=== PATIENT | male | born 1940 | race Caucasian/White ===

== ENCOUNTER → 2023-08-21 08:33 | Outpatient (REF) | payer MEDICARE, BC, SELFPAY ==
[2023-08-21 11:05] LABS: Microalbumin, Random Urine 14.7 mg/dl (0.6-1.7); Microalbumin/creatinine Ratio 113.6 mg/g
[2023-08-21 11:09] LABS: ALT (SGPT) 43 U/L (0-50); AST (SGOT) 50 U/L (17-59); Albumin 4.4 g/dl (3.5-5.0); Alkaline Phosphatase 89 U/L (38-126); Blood Urea Nitrogen 25 mg/dl (9-20); Carbon Dioxide 26 mmol/L (22-30); Chloride 104 mmol/L (98-107); Glucose 119 mg/dl (70-99); HDL Cholesterol 36 mg/dl; LDL Cholesterol, Calculated 71 mg/dl; Potassium 4.2 mmol/L (3.5-5.1); Sodium 141 mmol/L (135-145); Total Bilirubin 0.8 mg/dl (0.2-1.3); Total Cholesterol 178 mg/dl (50-199); Total Protein 7.5 g/dl (6.3-8.2); Triglyceride 358 mg/dl (10-149); Very Low Density Lipoprotein 71 mg/dl (0-30); eGFR > 60.00
== END ==
LOC: REG 08:33
PROVIDERS: ATTENDING PHYSICIAN Internal Medicine Endocrinology, Diabetes & Metabolism; FAMILY PHYSICIAN Family Medicine
DX: E11.40 Type 2 diabetes mellitus with diabetic neuropathy, unspecified (principal)
CPT/HCPCS: 36415; 80053; 80061; 82043; 82570; 83036

== ENCOUNTER 2023-12-24 10:25 | Inpatient (IN) | payer MEDICARE, BC, SELFPAY ==
[2023-12-24] VITALS (13 sets, daily range): BP systolic 94–157; BP diastolic 38–88; BMI 31.2
--- NOTE | 2023-12-24 07:36 | ED.GENMED ---
Addendum entered and electronically signed by Tony Stallworth DO 12/24/23 08:33:
Update LFTs noted, will check a blood culture right upper quadrant ultrasound
Original Note:
History of Present Illness
<Suri Jack MD, Resident - Last Filed: 12/24/23 07:59>
General
Chief Complaint: Musculo-Skeletal Complaint
Source: patient and spouse
Time Seen by Provider: 12/24/23 07:01
History of Present Illness
History of Present Illness:
83-year-old male, Mr. Reginaldo Vasques with past medical history of COPD, hypertension, hyperlipidemia, DM 2, coronary artery disease s/p stents, aortic valve stenosis s/p TAVR in 2021 was brought to the ER by the EMS after he slid down from his bed
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 Patient reports that he was feeling weak and fatigued from the past 2 days, no history of dizziness/lightheadedness prior to the fall and he did not hit his head. Patient reports having
sharp pain, 10/10 in intensity, in the lower back region which radiates up to the right hip, associated with weakness in the right lower extremity. Patient has a history of tingling and numbness in the bilateral lower extremities from diabetic
neuropathy, no bladder/bowel incontinence, after the fall. Patient's was at the bedside and reports that he has been running fevers from the past 2 days, maximum recorded temperature was 102.82 days ago. She also reports his appetite was
decreased. No history of recent travel, exposure to sick contacts, chest pain, SOB, abdominal pain, dysuria, diarrhea.
Past History
<Suri Jack MD, Resident - Last Filed: 12/24/23 07:59>
Past History
ED Past Medical History: COPD, NIDDM and Other (Esophageal stricture, AL, aortic stenosis, peripheral neuropathy)
Social History
Tobacco: Former smoker
Alcohol: None
Drug: None
Personal:
Living: with family
Family History
Family History: Negative Diabetes or Hypertension
Review of Systems
<Suri Jack MD, Resident - Last Filed: 12/24/23 07:59>
Review of Systems
All Other Systems: ROS reviewed and negative except as documented in HPI and ROS
Phy Exam
<Suri Jack MD, Resident - Last Filed: 12/24/23 07:59>
Physical Exam
Physical Exam:
GEN: Patient is tachypneic, profusely sweating.
Eyes: PERRLA, EOMs intact, no scleral icterus
HENT: NCAT, oral mucosa moist, no JVD, no cervical adenopathy.
Lungs: bilateral basal wheezes
Cardiac: RRR, S1, S2 +, radial pulses 2+ bilat
Abdomen: S, NT, ND, NABS, no masses or hepatosplenomegaly
Neuro: AO x 3, no focal neurological deficits.
MSK: Tenderness to palpation in the lower back, SLR+ on right side, sensations intact bilaterally, decreased strength of the right lower extremity.
Skin: Normal color, no pallor or jaundice.
Psych: Calm, cooperative, proper hygiene
Course
<Suri Jack MD, Resident - Last Filed: 12/24/23 07:59>
Orders/Labs/Results
Orders:
Orders
12/24/23 07:06
CR Hip - RT w/wo Pel 2-3 Vw* Urgent
Comment:
Reason For Exam: fall, pain to r hip/knee
Include a pelvis x-ray?: Yes
12/24/23 07:20
COVID-19 Antigen Urgent
Source: Nasal Swab
12/24/23 07:26
CBC/With Diff [Complete Blood Count/With Diff] Urgent
CMP [Comprehensive Metabolic Panel] Urgent
12/24/23 07:32
CXR2 [CR Chest - 2 Views ] Urgent
Comment:
Reason For Exam: sob, fever
12/24/23 07:35
0.9% Sodium Chloride 1000 ml [Nss] 1,000 ml IV BOLUS
Acetaminophen [Tylenol] 650 mg PO NOW STA
12/24/23 08:16
Lactic Acid Urgent
Abnormal Lab Results
12/24/23
07:26
RBC 4.44 L 10^6/uL
(4.70-6.10)
Hct 38.9 L %
(39.0-52.0)
MCH 31.3 H pg
(27.0-31.0)
Sodium 132 L mmol/L
(135-145)
BUN 46 H mg/dl
(9-20)
Creatinine 1.5 H mg/dL
(0.7-1.3)
Glucose 213 H mg/dl
(70-99)
Total Bilirubin 2.3 H mg/dl
(0.2-1.3)
AST 203 H U/L
(17-59)
ALT 72 H U/L
(0-50)
12/24/23 07:26
12/24/23 07:26
Vital Signs
Initial and Last Documented VS:
Initial Vital Signs
Temp Pulse Resp BP Pulse Ox
100.4 F H 105 24 157/65 92
12/24/23 06:56 12/24/23 06:56 12/24/23 06:56 12/24/23 06:56 12/24/23 06:56
Last Documented Vital Signs
Temp Pulse Resp BP Pulse Ox
100.4 F H 105 24 157/65 92
12/24/23 06:56 12/24/23 06:56 12/24/23 06:56 12/24/23 06:56 12/24/23 06:56
<Tony Stallworth, DO - Last Filed: 12/24/23 08:26>
Orders/Labs/Results
Orders:
Orders
12/24/23 07:06
CR Hip - RT w/wo Pel 2-3 Vw* Urgent
Comment:
Reason For Exam: fall, pain to r hip/knee
Include a pelvis x-ray?: Yes
12/24/23 07:20
COVID-19 Antigen Urgent
Source: Nasal Swab
12/24/23 07:26
CBC/With Diff [Complete Blood Count/With Diff] Urgent
CMP [Comprehensive Metabolic Panel] Urgent
12/24/23 07:32
CXR2 [CR Chest - 2 Views ] Urgent
Comment:
Reason For Exam: sob, fever
12/24/23 07:35
0.9% Sodium Chloride 1000 ml [Nss] 1,000 ml IV BOLUS
Acetaminophen [Tylenol] 650 mg PO NOW STA
12/24/23 08:16
Lactic Acid Urgent
Abnormal Lab Results
12/24/23
07:26
RBC 4.44 L 10^6/uL
(4.70-6.10)
Hct 38.9 L %
(39.0-52.0)
MCH 31.3 H pg
(27.0-31.0)
Sodium 132 L mmol/L
(135-145)
BUN 46 H mg/dl
(9-20)
Creatinine 1.5 H mg/dL
(0.7-1.3)
Glucose 213 H mg/dl
(70-99)
Total Bilirubin 2.3 H mg/dl
(0.2-1.3)
AST 203 H U/L
(17-59)
ALT 72 H U/L
(0-50)
12/24/23 07:26
12/24/23 07:26
Vital Signs
Initial and Last Documented VS:
Initial Vital Signs
Temp Pulse Resp BP Pulse Ox
100.4 F H 105 24 157/65 92
12/24/23 06:56 12/24/23 06:56 12/24/23 06:56 12/24/23 06:56 12/24/23 06:56
Last Documented Vital Signs
Temp Pulse Resp BP Pulse Ox
100.4 F H 105 24 157/65 92
12/24/23 06:56 12/24/23 06:56 12/24/23 06:56 12/24/23 06:56 12/24/23 06:56
<Suri Jack MD, Resident - Last Filed: 12/24/23 07:59>
MDM/Problems Addressed
Differential Diagnosis Includes:
COVID, COPD exacerbation, pneumonia
Lumbar muscle strain, disc prolapse, hip fracture on the right side.
MDM/Problems Addressed:
CBC, CMP, lactate
Chest x-ray
X-ray pelvis/hip
Patient is febrile, temperature at 100.4
Patient started on IV fluids
Pain control/fever with Tylenol
<Tony Stallworth DO - Last Filed: 12/24/23 08:26>
MDM/Problems Addressed
Chronic conditions affecting care: COPD
Acute Exacerbation and/or Progression of Chronic Illness: COPD
<Tony Stallworth DO - Last Filed: 12/24/23 08:26>
*Critical Care Note
Total Time (30-74mins, 75-104mins- exclusive of procedures): 15
ED Attending Note
<Suri Jack MD, Resident - Last Filed: 12/24/23 07:59>
-
Portions of this chart may have been created with voice recognition software.� Occasional wrong word or��sound alike� substitutions may have occurred due to the inherent limitations of voice recognition software.
<Tony Stallworth, DO - Last Filed: 12/24/23 08:26>
ED Attending Note
Patient seen and examined by attending physician: Yes
I performed a history and physical exam of patient and discussed management with resident, I reviewed resident's note and agree with documented findings and plan of care.: Yes
ED Attending Note:
Seen with resident examined independently 83-year-old male COPD febrile illness for a few days slid out of bed has right sided back and hip pain looks weak you are coughing a bit, labs are noted acute kidney injury, could all be a viral syndrome
nonetheless I believe he would benefit from admission for IV fluids several supportive care antipyretics chest x-ray noted, report pending urinalysis is pending
Discharge Plan
Departure
Patient Disposition: Admit
Date of Disposition: 12/24/23
Time of Disposition: 08:25
Admit to: Med/Surg
Presentation/result/management discussed w/ accepting MD/DO: Hospitalist
Patient with high blood pressure during this ER visit?: No
Condition: Fair
Covid-19: Negative COVID-19
Discharge Problem:
MODESTA (acute kidney injury), Fever
Prescriptions:
No Action
albuterol sulfate [Ventolin HFA] 90 MCG/PUFF HFA aerosol inhaler
1 puff inhalation TIDPRN PRN (Reason: wheezing, dyspnea)
Patient Comments:
unknown of last used
fluticasone furoate-vilanterol [Breo Ellipta] 1 EACH blister with device
1 mcg inhalation DAILY
pantoprazole 40 MG tablet,delayed release (DR/EC)
40 mg PO DAILY Qty: 90 3RF
isosorbide mononitrate 30 MG tablet extended release 24 hr
60 mg PO DAILY
ipratropium-albuterol 0.5 mg-3 mg(2.5 mg base)/3 mL Solution For Nebulization
3 ml INHALATION DAILY
losartan 25 mg Tablet
25 mg PO DAILY
brimonidine 0.2 % Drops
1 drp OPHTHALMIC (EYE) BID
rosuvastatin 5 mg Tablet
5 mg PO MOWEFR
budesonide 1 mg/2 mL Suspension For Nebulization
1 mg INHALATION DAILY
ranibizumab 0.5 mg/0.05 mL Solution
0.3 mg INTRAVITREAL Q6W
Patient Comments:
eye injection every 6-8 weeks
Rx Instructions:
R eye
multivitamin Tablet
1 tab PO DAILY
ascorbic acid (vitamin C) [Vitamin C] 1,000 mg Tablet
1 g PO DAILY
echinacea 380 mg Capsule
380 mg PO DAILY
cyanocobalamin (vitamin B-12) [Vitamin B-12] 1,000 mcg Tablet
1,000 mcg PO DAILY
nitroglycerin 0.4 mg Tablet, Sublingual
0.4 mg SUBLINGUAL Q5M PRN (Reason: chest pain)
Patient Comments:
pt has rx filled, but has never used
lysine [L-Lysine] 500 mg Tablet
500 mg PO DAILY
magnesium 200 mg Tablet
200 mg PO QPM
5-hydroxytryptophan (5-HTP) [5-HTP] 100 mg Capsule
100 mg PO QPM
cholecalciferol (vitamin D3) [Vitamin D3] 50 mcg (2,000 unit) Tablet
50 mcg PO DAILY
aflibercept 2 mg/0.05 mL Syringe
2 mg INTRAVITREAL Q6W
Patient Comments:
Left eye injection every 6-8 weeks
Rx Instructions:
04/06/2022
pyridoxine (vitamin B6) [Vitamin B-6] 100 mg Tablet
50 mg PO QPM
melatonin 10 mg Tablet
10 mg PO QPM
theanine 200 mg Capsule
200 mg PO QPM
IMAN Soothe 100-100-225 mg Capsule
500 cap PO QPM
ezetimibe 10 mg Tablet
10 mg PO DAILY
furosemide [Lasix] 20 mg tablet
20 mg PO MOWEFR Qty: 90 5RF
zinc acetate 50 mg (zinc) Capsule
50 mg PO DAILY
aspirin 81 mg Capsule
81 mg PO DAILY
potassium citrate 99 mg Capsule
99 mg PO DAILY
glipizide 5 mg Tablet Extended Release 24hr
5 mg PO DAILY
Trulicity 0.75 MG/0.5 ML pen injector
0.75 mg SQ FR
acetaminophen 325 mg Tablet
650 mg PO Q4HPRN PRN (Reason: HARP, mild pain, or fever >101F) Qty: 0 3RF
Referrals:
Marquis West MD [Family Provider] -
Interventions
Interventions:
*Risk Screen - Suicide Last Done: 12/24/23 06:56
*General Assessment Last Done: 12/24/23 06:56
*Neglect/Abuse Screening Last Done: 12/24/23 06:56
Discharge Date and Time
Print Language: HAITIAN
[2023-12-24] MEDS: TYLENOL 650 MG PO ×2 (07:39→17:18)
[2023-12-24 07:48] LABS: COVID-19 Antigen Negative (Negative)
[2023-12-24 07:49] LABS: Hematocrit 38.9 % (39.0-52.0); Hemoglobin 13.9 g/dL (13.0-18.0); Mean Corp Hgb Conc. 35.7 g/dL (33.0-37.0); Mean Corpuscular Hgb 31.3 pg (27.0-31.0); Mean Corpuscular Volume 87.6 fL (80.0-94.0); Red Blood Cell Count 4.44 10^6/uL (4.70-6.10); Red Cell Dist. Width 13.7 % (11.5-14.5)
[2023-12-24 07:52] LABS: ALT (SGPT) 72 U/L (0-50); AST (SGOT) 203 U/L (17-59); Albumin 4.1 g/dl (3.5-5.0); Alkaline Phosphatase 74 U/L (38-126); Blood Urea Nitrogen 46 mg/dl (9-20); Carbon Dioxide 22 mmol/L (22-30); Chloride 101 mmol/L (98-107); Estimated Creatinine Clearance 46 ml/min; Glucose 213 mg/dl (70-99); Potassium 4.3 mmol/L (3.5-5.1); Sodium 132 mmol/L (135-145); Total Bilirubin 2.3 mg/dl (0.2-1.3); Total Protein 6.8 g/dl (6.3-8.2); eGFR 46.48
[2023-12-24 08:02] LABS: Calcium 9.1 mg/dl (8.4-10.2)
[2023-12-24] MEDS: NSS 1000 IV ×2 (08:14→17:19)
[2023-12-24 08:27] LABS: % Basophils 0.3 % (0-2); % Lymphocytes 6.4 % (20.5-51.1); % Monocytes 10.6 % (1.7-9.3); % Neutrophils 81.7 % (42.2-75.2); Absolute Immature Granulocytes 0.1 10^3/uL (0-0.05); Absolute Lymphocytes 0.4 10^3/uL (1.2-3.4); Absolute Monocytes 0.6 10^3/uL (0.1-0.6); Absolute Neutrophils 4.9 10^3/uL (1.4-6.5); Mean Platelet Volume 12.7 fL (7.4-10.4); Nucleated Red Blood Cells % 0 % (-); Platelet Count 42 10^3/uL (130-400)
--- NOTE | 2023-12-24 09:41 | HPS.HSE ---
Family Physician
-
Family Physician: Marquis West
Chief Complaint
-
Weakness, fever, chills
History of Present Illness
83-year-old male here complaining of generalized weakness, fever, chills for the past 11 days. Denies any sick contacts. Denies any tick exposures. Denies significant cough. Denies rash. Denies any urinary symptoms.
Apparently fell out of bed this morning and landed on his butt. Since the fall has had pain in the right lateral hip and pain with right hip flexion. Denies loss of consciousness.
Has a history of nephrolithiasis and was treated with a medication by his primary care 2 weeks ago to help him pass a kidney stone. He does not remember the name of the medication. He was not on antibiotics. He did not see a stone pass but his
kidney stone pain did resolve.
Patient and are poor historians.
Medical History
Past Medical History
Past Medical History: Reports Other
Additional Past Medical History:
COPD
Essential hypertension
Hyperlipidemia
DM2
CAD
Aortic stenosis
Peripheral neuropathy
Esophageal stricture
Past Surgical History: Reports Other
Additional Past Surgical History:
TAVR�2022
Bilateral total knee arthroplasty
Social History
Tobacco: Former Smoker
Alcohol: Occasional
Drug: None
Personal:
Living: With Family
Family History
Family History: Not pertinent
Allergies / Home Medications
Allergies reflects when Allergies were last updated in [employer].
Home Medications with original date entered in [employer]
Allergy/Medication List:
Allergies
Allergy/AdvReac Type Severity Reaction Status Date / Time
atorvastatin Allergy LEG CRAMPS Verified 12/24/23 06:55
lisinopril Allergy severe Verified 12/24/23 06:55
cough
prednisone Allergy Swelling Verified 12/24/23 06:55
rosiglitazone [From Avandia] Allergy Edema Verified 08/06/24 06:55
Home Medications
ascorbic acid (vitamin C) 500 mg tablet (Vitamin C) 500 mg PO DAILY 12/24/23
cyanocobalamin (vitamin B-12) 1,000 mcg tablet 1,000 mcg PO DAILY 12/24/23
dulaglutide 0.75 mg/0.5 mL subcutaneous pen injector (Trulicity) 0.75 mg SC FR 12/24/23
ezetimibe 10 mg tablet (Zetia) 10 mg PO DAILY 12/24/23
furosemide 20 mg tablet (Lasix) 20 mg PO MOWEFR 12/24/23
garlic 400 mg tablet,delayed release 400 mg PO DAILY 12/24/23
glipizide 5 mg tablet 5 mg PO DAILY 12/24/23
ibuprofen 125 mg-acetaminophen 250 mg tablet (Advil Dual Action) 1 tab PO Q8HPRN PRN mild pain/fever 12/24/23
isosorbide mononitrate 60 mg tablet,extended release 24 hr 60 mg PO DAILY 12/24/23
losartan 25 mg tablet 25 mg PO DAILY 12/24/23
magnesium oxide 200 mg PO DAILY 12/24/23
pantoprazole 40 mg tablet,delayed release (Protonix) 40 mg PO DAILY 12/24/23
potassium 99 mg tablet 99 mg PO DAILY 12/24/23
pyridoxine (vitamin B6) 50 mg tablet 50 mg PO DAILY 12/24/23
rosuvastatin 5 mg tablet 5 mg PO MOWEFR 12/24/23
therapeutic multivitamin 1 tab PO DAILY 12/24/23
Review of Systems
-
History Source: Patient and Family
A 12 point ROS was completed and negative except as noted: Yes
Constitutional: Reports Fever, Fatigue and Chills
Physical Exam
Vital Signs
Vital Signs
Temp Pulse Resp BP Pulse Ox
100.4 F H 89 27 123/38 94
12/24/23 06:56 12/24/23 08:30 12/24/23 08:30 12/24/23 08:17 12/24/23 08:30
Physical Exam
General: Well Developed, Well Nourished, No Apparent Distress and Comfortable
HEENT: NormoCephalic, Anicteric and Moist mucous membranes
Respiratory: Decreased Breath Sounds
Cardiac: S1/S2 and Regular Rhythm
Breast: Deferred by me
GI: Soft, Non Tender and Non Distended
Genito-urinary: Costovertebral angle tend (Mild right CVA tenderness)
Musculoskeletal: No Clubbing, No Cyanosis and No Edema
Skin: Warm and Dry
Neuro: AO x 3
Hematologic/Lymphatic: No Lymphadenopathy
Psych: Calm
Laboratory Results
-
12/24/23 07:26
12/24/23 07:26
Laboratory Results
Lactic Acid 2.0 mmol/L (0.7-2.0) 12/24/23 08:16
Total Bilirubin 2.3 mg/dl (0.2-1.3) H 12/24/23 07:26
AST 203 U/L (17-59) H 12/24/23 07:26
ALT 72 U/L (0-50) H 12/24/23 07:26
Alkaline Phosphatase 74 U/L (38-126) 12/24/23 07:26
Impression/Plan
-
MODESTA -suspect due to volume depletion. Continue IV fluids. Check urinalysis. Check bladder scan. Hold furosemide. Hold losartan. Stop NSAIDs.
Admit to MedSurg.
Febrile illness -white blood cell count normal but bandemia noted. Check blood and urine cultures. Check CT abdomen and pelvis, rule out nephrolithiasis. Check urinalysis.
DM2 with hyperglycemia -hold oral agents. Use low resistance insulin scale. Check hemoglobin A1c.
Hyponatremia -suspect due to hyperglycemia.
Elevated transaminases -check GGT, direct bilirubin.
COPD without exacerbation
Essential hypertension -stable.
Hyperlipidemia -continue Crestor.
CAD -stable.
aortic stenosis -s/p TAVR.
Diabetic peripheral neuropathy
Esophageal stricture
Chronic thrombocytopenia -unclear etiology. Monitor for now.
Obesity due to excess calories
DNR
Updated at the bedside.
[2023-12-24 10:03] LABS: Direct Bilirubin 0.8 mg/dl (0.0-0.4)
[2023-12-24 14:17] LABS: GGTP 109 U/L (15-73)
[2023-12-24] MEDS: DUONEB 3 ML INH (14:19)
[2023-12-24 14:25] LABS: Creatine Phosphokinase 4102 U/L (55-170)
--- NOTE | 2023-12-24 14:28 | EDRN ---
Pt tachycardic in the 120s, sob/wheezing, hypoxic on room air at 88%. PRN duoneb administered, discused with Dr. zaldivar who said he will upgrade to IMU.
[2023-12-24] MEDS: NOVOLOG FLEXPEN-LOW RESISTANCE SC (17:17)
[2023-12-24 17:25] LABS: Glucose - Point of Care 190 mg/dl (70-99)
[2023-12-24] MEDS: NOVOLOG FLEXPEN-LOW RESISTANCE 1 UNITS SC (17:46)
--- NOTE | 2023-12-24 17:55 | PTCARENOTE ---
Pt received from ED. AAOx3. Pt reports having double vision at times. NSR/ST on contract technician. HRs 90s-100s. SaO2 96% on 3L nasal cannula. Lungs diminished throughout. Pt with oral termp of 101.8, PRN tylenol given for fever. IVF initiated through
R FA PIV. Pt resting in bed, call morse in reach. Assessment documented.
[2023-12-24] MEDS: HEPARIN 5000 UNITS SC (19:37)
[2023-12-24 20:46] LABS: Urine Albumin 1+ (Neg - Trace); Urine Bilirubin Negative (Negative); Urine Character Clear (Clear); Urine Color Yellow; Urine Glucose Negative (Negative); Urine Ketone Trace (Negative); Urine Leukocyte Negative (Negative); Urine Nitrite Negative (Negative); Urine Occult Blood 1+ (Negative); Urine Specific Gravity 1.025 (<1.030); Urine Urobilinogen Negative (Neg - 1+)
[2023-12-24 20:54] LABS: Urine Bacteria Many (Negative); Urine Red Blood Cell 0-2 /HPF (0-2); Urine Squamous Cell 0-2 /LPF (Few); Urine White Cell 0-2 /HPF (0-5)
[2023-12-24 20:55] LABS: Urine Mucus Few
[2023-12-24 21:55] LABS: Glucose - Point of Care 214 mg/dl (70-99)
[2023-12-25] VITALS (15 sets, daily range): BP systolic 100–158; BP diastolic 45–103; PULSE 96; O2SAT 96; BMI 31.6
[2023-12-25] MEDS: NSS 1000 IV ×2 (03:55→09:12)
[2023-12-25] MEDS: TYLENOL 650 MG PO (03:58)
--- NOTE | 2023-12-25 04:48 | PTCARENOTE ---
Patient able to sleep overnight. UA collected and sent. Pt has severe neuropathy, able to use urinal but spills. condom cath placed. all linens changed, bed bath given. pt on 3L NC; DAWN present. t-max 100.5; tylenol provided. Tele showing NSR with
PVCs. bed alarm set for safety. call morse within reach
[2023-12-25 04:57] LABS: Hematocrit 35.7 % (39.0-52.0); Mean Corp Hgb Conc. 36.4 g/dL (33.0-37.0); Mean Corpuscular Hgb 31.1 pg (27.0-31.0); Mean Corpuscular Volume 85.4 fL (80.0-94.0); Platelet Count 46 10^3/uL (130-400); Red Blood Cell Count 4.18 10^6/uL (4.70-6.10); Red Cell Dist. Width 13.8 % (11.5-14.5)
[2023-12-25 05:13] LABS: Absolute Neutrophils -Man Diff 2.9 10^3/uL (1.4-6.5); Band Neutrophils 12 % (0-3); Eosinophils 2 % (0-6); Lymphocytes 15 % (20-51); Monocytes 9 % (2-9); Segmented Neutrophils 62 % (42-75)
[2023-12-25 05:14] LABS: Normal RBC Morphology Yes; Platelets Checked Yes; Total Cells Counted 100
[2023-12-25 05:24] LABS: ALT (SGPT) 70 U/L (0-50); AST (SGOT) 149 U/L (17-59); Albumin 3.4 g/dl (3.5-5.0); Alkaline Phosphatase 76 U/L (38-126); Blood Urea Nitrogen 44 mg/dl (9-20); Calcium 8.7 mg/dl (8.4-10.2); Carbon Dioxide 19 mmol/L (22-30); Chloride 106 mmol/L (98-107); Creatine Phosphokinase 1369 U/L (55-170); Estimated Creatinine Clearance 57 ml/min; Glucose 197 mg/dl (70-99); Potassium 4.6 mmol/L (3.5-5.1); Sodium 133 mmol/L (135-145); Total Bilirubin 2.2 mg/dl (0.2-1.3); Total Protein 6.2 g/dl (6.3-8.2); eGFR > 60.00
--- NOTE | 2023-12-25 08:12 | W.PN.HOSP.TC ---
Addendum entered and electronically signed by Say Gandara DO 12/25/23 12:36:
pancytopenia
Original Note:
Today's Communication/Plan
-
IV fluids
Blood parasite smear
PT/OT
Assessment / Plan
Assessment / Plan
Gen-AAOx3, NAD
HEENT-NC, AT, anicteric, clear oral mm
Neck-supple
CV-reg, no M, +S1/S2
Lungs-clear B/L
Abd-soft, NT, ND
Ext-no edema
Musculoskeletal-no cyanosis, clubbing
Skin-warm and dry, dry scabbed lesions on plantar aspect of both feet
Neuro-grossly non-focal
Psych-calm, cooperative
MODESTA -suspect due to volume depletion. Creatinine coming down. Continue IV fluids. Hold furosemide. Hold losartan. Stop NSAIDs.
Sepsis -present on admission. Workup negative so far. Not on antibiotics currently. Cultures pending. Check blood smear for parasites.
DM2 with hyperglycemia -hold oral agents. Use low resistance insulin scale. Check hemoglobin A1c. Glucose 197 this morning.
Hyponatremia -suspect due to hyperglycemia.
Acute nontraumatic rhabdomyolysis -CPK trending down. Continue IV fluids.
Elevated transaminases -GGT elevated. Transaminases starting to come down. Abdominal ultrasound suggestive of cirrhosis and probable portal hypertension, no focal hepatic lesion. Will need outpatient follow-up.
COPD without exacerbation
Essential hypertension -stable.
Hyperlipidemia -continue Crestor.
CAD -stable.
aortic stenosis -s/p TAVR.
Diabetic peripheral neuropathy
Esophageal stricture
Chronic thrombocytopenia -unclear etiology. Monitor for now.
Obesity due to excess calories
DNR
PT/OT
Anticipated Discharge: > 48 hours
Subjective/Interval History
-
Date of Service: December 25, 2023
Patient seen and examined. No complaints.
Objective Data
-
Labs:
Laboratory Results
12/25/23
04:32
WBC 4.0 L
Hgb 13.0
Hct 35.7 L
Plt Count 46 L
Sodium 133 L
Potassium 4.6
Chloride 106
Carbon Dioxide 19 L
BUN 44 H
Creatinine 1.2
Glucose 197 H
Calcium 8.7
Total Bilirubin 2.2 H
AST 149 H
ALT 70 H
Alkaline Phosphatase 76
Vital Signs:
Vital Signs
Temp Pulse Resp BP Pulse Ox
100.5 F H 79 20 100/54 97
12/25/23 03:55 12/25/23 06:15 12/25/23 06:15 12/25/23 06:00 12/25/23 06:15
I&O
12/24/23 12/25/23 12/26/23
06:59 06:59 06:59
Intake Total 400 / 400
Output Total 425 / 425
Balance -25 / -25
Review of Systems
-
History Source: Patient
All other systems: Reviewed and negative
[2023-12-25 08:13] LABS: Glucose - Point of Care 180 mg/dl (70-99)
[2023-12-25 09:10] LABS: Glycohemoglobin (HgbA1c) 6.7 % (4.0-5.6)
[2023-12-25] MEDS: HEPARIN 5000 UNITS SC ×2 (09:10→19:49)
[2023-12-25] MEDS: NOVOLOG FLEXPEN-LOW RESISTANCE 1 UNITS SC (09:10)
[2023-12-25] MEDS: VITAMIN B-12 1000 MCG PO (09:11)
[2023-12-25] MEDS: VITAMIN B-6 50 MG PO (09:11)
[2023-12-25] MEDS: ZETIA 10 MG PO (09:11)
[2023-12-25] MEDS: MAGNESIUM OXIDE 250 MG PO (09:11)
[2023-12-25] MEDS: PROTONIX 40 MG PO (09:12)
[2023-12-25] MEDS: IMDUR (EXTENDED RELEASE) 60 MG PO (09:12)
[2023-12-25] MEDS: THERAGRAN 1 TABLET PO (09:12)
[2023-12-25] MEDS: VITAMIN C 500 MG PO (09:12)
--- NOTE | 2023-12-25 09:41 | PN.CDI ---
CDI
- -
CDI:
Physician Documentation Request
Admit Date: 12/24/23 10:25
Dear Doctor Nichol,
Clinical Indicators:
Patient admitted with sepsis & MODESTA.
12/24 PN, ' Chronic thrombocytopenia -unclear etiology. Monitor for now.'
WBC, RBC, Plts:
12/25/23
04:32
WBC 4.0 L
RBC 4.18 L
Plt Count 46 L
Based on the above, could you clarify in the progress notes, the appropriate diagnosis, if significant, that supports the above lab abnormalities and additional evaluation/monitoring:
Pancytopenia
Chronic thrombocytopenia only
Other, please specify
Use of terms such as suspected, likely, concern for, or probable (associated with a specific diagnosis that is being evaluated, monitored, or treated as if it exists) are acceptable and can be coded in the inpatient setting, when documented at the
time of discharge.
Thank you,
Karen Mays RN BSN
CDI Specialist
available via tiger text
Please use your independent medical judgment in providing your response.
[2023-12-25] MEDS: AMPICILLIN 108 MG IV ×4 (12:02→23:24)
[2023-12-25] MEDS: NOVOLOG FLEXPEN-LOW RESISTANCE 2 UNITS SC ×2 (12:07→16:49)
[2023-12-25 12:18] LABS: Glucose - Point of Care 219 mg/dl (70-99)
--- NOTE | 2023-12-25 12:55 | CON.ID ---
Consultation
-
Date/Time Consultation Requested: December 25, 2023 1152
Date/Time Consultation Performed: December 25, 2023 1300
Requesting Provider: Dr. Say Gandara
Performing Provider: Dr. Rachna Gaona
Reason for Consultation: Positive blood culture
Chief Complaint / Past History
Chief Complaint
Fever, chills
History of Present Illness
83-year-old male with diabetes mellitus, COPD, TAVR, CAD status post stent, chronic thrombocytopenia who presented to the hospital December 23 complaining of fever. He reports that symptoms started about a week and a half ago when he developed rigors
which were intermittent. Also had subjective fevers and sweats. He became weak and fell off his bed yesterday and came to the ER. Maximum temperature was 101.8. Admission blood culture 1 out of 1 set GPC in chains in aerobic and anaerobic
bottles. LFTs noted to be elevated. ABD US suggestive of cirrhosis/protal hypertension. CT a/p: unremarkable. CXR negative. Patient denies chest pain or cough. No headache or sore throat. Last dental work was last year, she now has upper and
lower dentures. No nausea or vomiting abdominal pain or diarrhea. No urine symptoms. No flank pain. No back pain. No new joint pains. No ill contacts. No travel history.
Past History
Additional Past Medical History:
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
s/p TAVR (2021)
CAD s/p stent
COPD
Chronic thrombocytopenia
Hypertension
Dyslipidemia
CHF
Nephrolithiasis
Andre's esophagus/stricture
Obstructive sleep apnea
Arthritis
C3-7 discectomy/laminectomy with screws
Jaw implant bilateral
B TKA
Allergy History:
atorvastatin Allergy (Verified 12/24/23 06:55)
LEG CRAMPS
lisinopril Allergy (Verified 12/24/23 06:55)
severe cough
prednisone Allergy (Verified 12/24/23 06:55)
Swelling
rosiglitazone [From Avandia] Allergy (Verified 12/24/23 06:55)
Edema
Medications Reviewed: Yes
Current Antibiotics:
Ampicillin 2g IV q4
Social History
Tobacco: Non-Smoker
Alcohol: Occasional
Drug: None
Personal:
Living: With Family
Family History
Family History: Not Pertinent
Review of Systems
Review of Systems
General: Fever, Chills and Change in Appetite
HEENT: Negative Sinus Problems, Headache or Pharyngitis
Cardiovascular: Negative Chest Pain or Edema
Respiratory: Negative Dyspnea or Cough
Gasteroenterology: Other (no diarrhea); Negative Nausea or Vomiting
Genital / Urological: Negative Dysuria or Flank Pain
Endocrine: Weakness and Fatigue
Musculoskeletal: Negative Arthralgias
Skin / Hair / Nails: Negative Rash
Neurological: Negative Headache or Dizziness
All systems: All other systems were reviewed and were negative
Vital Signs
Temp Pulse Resp BP Pulse Ox
99.0 F 79 20 100/54 92
12/25/23 10:52 12/25/23 06:15 12/25/23 06:15 12/25/23 06:00 12/25/23 09:19
Selected Entries
12/24/23
16:45
Temp max 101.8 F H
Physical Exam
Physical Exam
Constitutional: No Acute Distress
Head: Other (No frontal or maxillary sinus tenderness.)
Eyes: No Conjunctival Hemorrhage
Pharynx: Benign
Oral: Other (Dentures in place)
Cardiovascular: Regular Rate and S1/S2; Negative Murmur or Peripheral Edema
Pulmonary: Clear
Gastrointestinal: Soft, Non Tender, Non Distended and Normal Bowel Sounds
Genito-Urinary: Negative CVA Tenderness
Extremities: Negative Edema, Splinter Hemorrhage or Janeway Lesions
Musculoskeletal: Joint Effusion (Knees); Negative Joint Swelling (Knees) or Spinal Tenderness
Skin: Negative Rash
Neurological: AO x 3; Negative Meningeal Signs
Lab / Diagnostic Study Results
12/25/23 04:32
12/25/23 04:32
Abs Immat Gran (auto) 0.1 10^3/uL (0-0.05) H 12/24/23 07:26
Absolute Neuts (auto) 4.9 10^3/uL (1.4-6.5) 12/24/23 07:
Absolute Lymphs (auto) 0.4 10^3/uL (1.2-3.4) L 12/24/23 07:
Absolute Monos (auto) 0.6 10^3/uL (0.1-0.6) 12/24/23 07:
Absolute Basos (auto) 0.0 10^3/uL (0-0.2) 12/24/23 07:26
Total Counted 100 12/25/23 04:32
Immature Gran % 1.0 % (0-0.5) H 12/24/23 07:26
Neutrophils % 81.7 % (42.2-75.2) H 12/24/23 07:
Lymphocytes % 6.4 % (20.5-51.1) L 12/24/23 07:26
Monocytes % 10.6 % (1.7-9.3) H 12/24/23 07:
Eosinophils % 0.0 % (0-6) 12/24/23 07:26
Basophils % 0.3 % (0-2) 12/24/23 07:26
Abs Neuts (Manual) 2.9 10^3/uL (1.4-6.5) 12/25/23 04:32
Segmented Neutrophils 62 % (42-75) 12/25/23 04:32
Band Neutrophils 12 % (0-3) H 12/25/23 04:32
Lymphocytes (Manual) 15 % (20-51) L 12/25/23 04:32
Eosinophils (Manual) 2 % (0-6) 12/25/23 04:32
Lactic Acid 2.0 mmol/L (0.7-2.0) 12/24/23 08:16
Ur Squamous Epith Cells 0-2 /LPF (Few) 12/24/23 20:38
Microbiology Results
Micro:
12/24/23 18:46 Blood Culture - Preliminary
Blood/Venous Positive culture in progress
Gram Stain - Preliminary
12/24/23 20:38 Urine Culture - Pending
Urine
12/24/23 CT a/p: There are multiple calcifications in the pancreas suggesting chronic pancreatitis but no acute findings. There is a left renal calculus but no evidence of hydronephrosis or ureteral calculus. There is diverticulosis but no evidence of
diverticulitis
There is multilevel degenerative disc disease throughout the lumbar spine.
12/24/23 Abd US: Cirrhosis and probable portal hypertension with splenic diameter of 15.9 cm. No abnormal focal hepatic lesion is identified sonographically. No acute intra-abdominal process identified sonographically.
12/24/23 CXR: There is cardiomegaly but no evidence of decompensation.
Assessment / Plan
# GPC chain bacteremia - suspect streptococcal species vs enterococcus
# Sepsis Fever, bandemia, leukopenia
# Hx TAVR
# Elevated transaminases
- Repeat blood cultures daily until clear.
- Ordered TTE
- Add ceftriaxone 2g IV q24.
- Continue ampicillin for now.
- Follow temps/wbc
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
s/p TAVR (2021)
CAD s/p stent
COPD
Chronic thrombocytopenia
Hypertension
Dyslipidemia
CHF
Nephrolithiasis
Andre's esophagus/stricture
Obstructive sleep apnea
Arthritis
C3-7 discectomy/laminectomy with screws
Jaw implant bilateral
B TKA
--- NOTE | 2023-12-25 13:57 | PTCARENOTE ---
Assumed care of pt this am and pt then transferred to room 419 after verbal report given to nurse Castanon. Nursing assessment documented. Pt verbalizes frustration with inability to self care and difficulty with using urinal. Pt given emotional
support and assist with urinal. Pt on 3L NC and DAWN. He has faint wheezing with exertion. BLOGS MANAGER present
--- NOTE | 2023-12-25 14:30 | CM ---
Patient with Dx sepsis, MODESTA, pancytopenia. O2 3L. Plan Echo. Receiving IV Abx. PT & OT; requires assist of 2, recommend skilled rehab.
Attempted to meet with patient on IMU- patient transferred to [facility].
Spoke with patient's Princess;
the patient resides with his in a 2 story house with 1 DAVID.
The patient has been independent in ADLs and ambulation until last week, when he became weak and mostly rested all day in a chair.
He is usually active and drives.
DME - [facility]
No prior VN or SNF.
PCP - [facility]
Pharmacy - [facility] [place]
Discussed short term rehab with , who says patient will agree. She agrees to referrals to SNFs in [place] including [facility], [facility], [facility] and [facility].
SNF referrals placed.
Plan follow up SNF referrals.
[2023-12-25] MEDS: CRESTOR 5 MG PO (16:38)
[2023-12-25] MEDS: STERILE WATER FOR INJECTION 20 ML IV (16:38)
[2023-12-25] MEDS: ROCEPHIN 2000 MG IV (16:38)
[2023-12-25 16:47] LABS: Glucose - Point of Care 210 mg/dl (70-99)
[2023-12-25 21:35] LABS: Glucose - Point of Care 212 mg/dl (70-99)
[2023-12-26] VITALS (7 sets, daily range): BP systolic 111–144; BP diastolic 49–85; O2SAT 94; BMI 31.7
[2023-12-26] MEDS: AMPICILLIN 108 MG IV ×6 (03:51→23:36)
[2023-12-26] MEDS: HEPARIN 5000 UNITS SC ×2 (08:01→19:14)
[2023-12-26] MEDS: NSS 1000 IV (08:01)
[2023-12-26] MEDS: VITAMIN B-12 1000 MCG PO (08:01)
[2023-12-26] MEDS: PROTONIX 40 MG PO (08:01)
[2023-12-26] MEDS: MAGNESIUM OXIDE 250 MG PO (08:01)
[2023-12-26] MEDS: THERAGRAN 1 TABLET PO (08:02)
[2023-12-26] MEDS: ZETIA 10 MG PO (08:02)
[2023-12-26] MEDS: VITAMIN B-6 50 MG PO (08:02)
[2023-12-26] MEDS: IMDUR (EXTENDED RELEASE) 60 MG PO (08:02)
[2023-12-26] MEDS: VITAMIN C 500 MG PO (08:02)
[2023-12-26 08:11] LABS: Hemoglobin 12.1 g/dL (13.0-18.0); Mean Corp Hgb Conc. 35.6 g/dL (33.0-37.0); Mean Corpuscular Hgb 31.3 pg (27.0-31.0); Mean Corpuscular Volume 87.9 fL (80.0-94.0); Platelet Count 42 10^3/uL (130-400); Red Blood Cell Count 3.87 10^6/uL (4.70-6.10); Red Cell Dist. Width 14.2 % (11.5-14.5); White Blood Cell Count 4.1 10^3/uL (4.8-10.8)
[2023-12-26 08:26] LABS: Absolute Neutrophils -Man Diff 2.7 10^3/uL (1.4-6.5); Band Neutrophils 11 % (0-3); Eosinophils 4 % (0-6); Lymphocytes 22 % (20-51); Monocytes 5 % (2-9); Segmented Neutrophils 55 % (42-75)
[2023-12-26 08:27] LABS: Anisocytosis 1+; Metamyelocytes 2 % (-); Myelocytes 1 % (-); Normal RBC Morphology No; Nucleated Red Blood Cells 1 (-); Ovalocytes 1+; Platelets Checked Yes; Polychromasia Slight
[2023-12-26 08:28] LABS: Total Cells Counted 100
[2023-12-26 08:33] LABS: ALT (SGPT) 69 U/L (0-50); AST (SGOT) 116 U/L (17-59); Albumin 3.3 g/dl (3.5-5.0); Alkaline Phosphatase 82 U/L (38-126); Blood Urea Nitrogen 37 mg/dl (9-20); Calcium 8.7 mg/dl (8.4-10.2); Carbon Dioxide 24 mmol/L (22-30); Chloride 104 mmol/L (98-107); Creatine Phosphokinase 403 U/L (55-170); Estimated Creatinine Clearance 69 ml/min; Glucose 187 mg/dl (70-99); Potassium 4.1 mmol/L (3.5-5.1); Sodium 134 mmol/L (135-145); Total Bilirubin 1.8 mg/dl (0.2-1.3); eGFR > 60.00
[2023-12-26] MEDS: DUONEB 3 ML INH ×2 (08:40→20:14)
[2023-12-26 08:49] LABS: Glucose - Point of Care 194 mg/dl (70-99)
[2023-12-26] MEDS: NOVOLOG FLEXPEN-LOW RESISTANCE 1 UNITS SC (08:49)
--- NOTE | 2023-12-26 08:50 | CON.CAR ---
Addendum entered and electronically signed by Mathew Santana MD 12/26/23 16:21:
I saw and examined the patient.
The Die Maker's note was reviewed and I agree with the note.
Comment: Briefly, 83-year-old man with past medical history of HFmrEF, ischemic cardiomyopathy and prior TAVR in 2021 for severe aortic stenosis who is presenting with fevers, rigors and weakness found to have bacteremia
Cardiology is consulted with concern for possible endocarditis
Elevated prosthetic aortic valve gradients noted on TTE; it is possible elevated gradients are related to high output state in the setting of sepsis however agree with ZARIA to further evaluate
Discussed with patient and he is agreeable to proceed with ZARIA, will try to facilitate for 12/27/2023
Original Note:
Consultation
Consultation Request
Date/Time Consultation Requested: 12/26/23 at 0850
Date/Time Consultation Performed: 12/26/23 at 0850
Requesting Provider: Dr. Gandara
Performing Provider: Dr. Santana
Reason for Consultation: Possible endocarditis, h/o TAVR
Medical History
-
History of Present Illness:
Patient came to [facility] Saturday after he was weak and fell at home and he is now admitted with bacteremia and cardiology has been consulted with h/o TAVR. Patient says he started with fevers chills and then rigors about 10 days prior to admission. He
thought he had a kidney stone because it felt similar to a previous kidney stone, so he called his PCP who ordered him pain meds and Flomax. Patient did not improve and instead became progressively weaker. His reports fevers at home up to 102.8
degrees Fahrenheit. He tried to stand up from bed Saturday and was weak and slid down the side of the bed and his could not lift him so they called 911. He was febrile in the ER and CK was elevated. Blood cultures are now positive for
Enterococcus. Echo 12/25/23 showed newly reduced EF at 40%, but no evidence of vegetation. Patient being followed by ID and ampicillin and ceftriaxone ordered. Patient has no h/o dysphagia or odynophagia. EF has been as low as 45% 05/23/22. No chest
pain. No obvious WMA.
PMH:
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
mean gradient 18 mmHg by echo 04/19/23 and increased to 30 mmHg by echo 12/25/23
Recent outpatient treatment for suspected ureteral stone 12/18/23
Recent foot wound managed by outpatient naval gunfire liaison officer 08/2023
CAD s/p 2.5 mm Promus to distal LAD and 2.25 mm Promus EMERITA to mid RCA 01/07/19, patent by cath 03/16/22
DM 2
cLBBB
HTN
Chronic thrombocytopenia
COPD
Past Medical History
Past Medical History: Other (in HPI)
Past Surgical History: Cardiac (TAVR 04/19/22, PCI), Orthopedic (discectomy, laminectomy, ), Tonsilectomy and Other (bone implant in jaw)
Social History
Tobacco: Former Smoker
Alcohol: Occasional (one to two drinks 2-4 times a month)
Drug: None
Personal:
Living: With Family
Family History
Family History: CAD and Cancer
Allergies / Home Medications
Allergy/AdvReac Type Severity Reaction Status Date / Time
atorvastatin Allergy LEG CRAMPS Verified 12/24/23 06:55
lisinopril Allergy severe Verified 12/24/23 06:55
cough
prednisone Allergy Swelling Verified 12/24/23 06:55
rosiglitazone [From Avandia] Allergy Edema Verified 12/24/23 06:55
�Medication �Instructions �Recorded �Confirmed �Type
ascorbic acid (vitamin C) 500 mg 500 mg PO DAILY Supplement 12/24/23 12/24/23 History
tablet (Vitamin C)
cyanocobalamin (vitamin B-12) 1,000 mcg PO DAILY Supplement 12/24/23 12/24/23 History
1,000 mcg tablet
dulaglutide 0.75 mg/0.5 mL 0.75 mg SC FR Diabetes 12/24/23 12/24/23 History
subcutaneous pen injector
(Trulicity)
ezetimibe 10 mg tablet (Zetia) 10 mg PO DAILY High Cholesterol 12/24/23 12/24/23 History
furosemide 20 mg tablet (Lasix) 20 mg PO MOWEFR Fluid 12/24/23 12/24/23 History
Retention/Swelling
garlic 400 mg tablet,delayed 400 mg PO DAILY Supplement 12/24/23 12/24/23 History
release
glipizide 5 mg tablet 5 mg PO DAILY Diabetes 12/24/23 12/24/23 History
ibuprofen 125 mg-acetaminophen 250 1 tab PO Q8HPRN PRN mild pain/fever 12/24/23 12/24/23 History
mg tablet (Advil Dual Action)
isosorbide mononitrate 60 mg 60 mg PO DAILY Heart 12/24/23 12/24/23 History
tablet,extended release 24 hr Disease/Condition
losartan 25 mg tablet 25 mg PO DAILY Blood Pressure 12/24/23 12/24/23 History
magnesium oxide 200 mg PO DAILY Supplement 12/24/23 12/24/23 History
pantoprazole 40 mg tablet,delayed 40 mg PO DAILY GERD 12/24/23 12/24/23 History
release (Protonix)
potassium 99 mg tablet 99 mg PO DAILY Supplement 12/24/23 12/24/23 History
pyridoxine (vitamin B6) 50 mg 50 mg PO DAILY Supplement 12/24/23 12/24/23 History
tablet
rosuvastatin 5 mg tablet 5 mg PO MOWEFR High Cholesterol 12/24/23 12/24/23 History
therapeutic multivitamin 1 tab PO DAILY Supplement 12/24/23 12/24/23 History
Review of Systems
-
History Source: Patient
All other systems: Negative unless noted
Physical Exam
Vital Signs
Temp Pulse Resp BP Pulse Ox
98.3 F 71 16 144/66 98
12/26/23 03:16 12/26/23 08:41 12/26/23 08:41 12/26/23 03:16 12/26/23 08:41
GEN: NAD. AAOx3
HEENT: EOMI, MMM
LUNGS: CTA B/L without wheeze or rales
CV: Reg, S1/S2, 2/6 syst LSB
ABD: soft, BS+, NT, ND
EXT: No clubbing, cyanosis, lesions or edema B/L
NEURO: Gross non-focal
SKIN: Warm, dry and pink. No rash
Lab Results
12/26/23 07:56
12/26/23 07:56
Impression / Plan
-
PCP: Dr. West
Cardiology: Dr. Maureen Escamilla
Impression:
Fall and weakness with fevers and rigors on admission 12/24/23
Sepsis
Enterococcus bacteremia
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
mean gradient 18 mmHg by echo 04/19/23 and increased to 30 mmHg by echo 12/25/23
Worsened CM EF 45% by echo 05/23/22, EF 40% by echo 12/25/23
MODESTA
Recent outpatient treatment for suspected ureteral stone 12/18/23
Recent foot wound managed by outpatient naval gunfire liaison officer 08/2023
CAD s/p 2.5 mm Promus to distal LAD and 2.25 mm Promus EMERITA to mid RCA 01/07/19, patent by cath 03/16/22
DM 2
Hyponatremia
Elevated LFTs
cLBBB
HTN
Chronic thrombocytopenia
Anemia
Leukopenia
COPD
Echo 05/23/22: EF 45 to 50%, moderate LVH, status post TAVR with peak/mean 30/15 mmHg
Echo 04/19/23: EF 50 to 55%, moderate concentric LVH, status post TAVR with peak/mean 33/18 mmHg
Echo 12/25/23: EF 40%, status post TAVR with peak/mean 47/30 mmHg, no aortic regurgitation seen, mild TR with PAP 35 mmHg, no definitive intracardiac mass noted
Plan:
-Patient came to [facility] Saturday after he was weak and fell at home and he is now admitted with bacteremia and cardiology has been consulted with h/o TAVR. Patient says he started with fevers chills and then rigors about 10 days prior to admission. He
thought he had a kidney stone because it felt similar to a previous kidney stone, so he called his PCP who ordered him pain meds and Flomax. Patient did not improve and instead became progressively weaker. His reports fevers at home up to 102.8
degrees Fahrenheit. He tried to stand up from bed Saturday and was weak and slid down the side of the bed and his could not lift him so they called 911. He was febrile in the ER and CK was elevated. Blood cultures are now positive for
Enterococcus. Echo 12/25/23 showed newly reduced EF at 40%, but no evidence of vegetation. Patient being followed by ID and ampicillin and ceftriaxone ordered. Patient has no h/o dysphagia or odynophagia. EF has been as low as 45% 05/23/22. No chest
pain. No obvious WMA.
-Patient is agreeable to ZARIA in AM.
-Recheck EF on echo. EF previously as low as 45% by echo 05/2022. Outpatient dose of losartan held on admission due to MODESTA. Metoprolol stopped in the past due to bradycardia on outpatient monitor. LAD and RCA stents patent by last cath 03/16/22.
--- NOTE | 2023-12-26 10:06 | W.PN.ID1 ---
Date of Service
Date of Service: December 26, 2023
Today's Communication
ZARIA
Assessment / Plan
# GPC chain bacteremia - suspect streptococcal species vs enterococcus
# Sepsis Fever, bandemia, leukopenia
# Hx TAVR
# Elevated transaminases
- Repeat blood cultures daily until clear.
- TTE - neg gross vege
- Recommend ZARIA
- Continue ceftriaxone 2g IV q24 and ampicillin pending culture data.
- Follow temps/wbc
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
s/p TAVR (2021)
CAD s/p stent
COPD
Chronic thrombocytopenia
Hypertension
Dyslipidemia
CHF
Nephrolithiasis
Andre's esophagus/stricture
Obstructive sleep apnea
Arthritis
C3-7 discectomy/laminectomy with screws
Jaw implant bilateral
B TKA
Chief Complaint
-: Bacteremia
Subjective / Review of Systems
Less chills.
Vital Signs / Physical Exam
Vital Signs
Vital Signs
Temp Pulse Resp BP Pulse Ox
98.3 F 71 16 144/66 98
12/26/23 03:16 12/26/23 08:41 12/26/23 08:41 12/26/23 03:16 12/26/23 08:41
Selected Entries
12/25/23
15:56 12/25/23
19:17
Temp 100.6 F H 100.4 F H
Physical Exam
Constitutional: No Acute Distress
Cardiovascular: Regular Rate and S1/S2
Pulmonary: Clear
Gastrointestinal: Soft, Non Tender and Non Distended
Extremities: Negative Janeway Lesions
Musculoskeletal: Negative Spinal Tenderness
Objective Data
Lab Data
Lab Results
12/26/23 07:56
12/26/23 07:56
Estimated Creat Clear 69 ml/min 12/26/23 07:56
Lactic Acid 2.0 mmol/L (0.7-2.0) 12/24/23 08:16
Total Bilirubin 1.8 mg/dl (0.2-1.3) H 12/26/23 07:56
GGT 109 U/L (15-73) H 12/24/23 07:26
AST 116 U/L (17-59) H 12/26/23 07:56
ALT 69 U/L (0-50) H 12/26/23 07:56
Alkaline Phosphatase 82 U/L (38-126) 12/26/23 07:56
Most recent labs reviewed.
Micro Results:
12/24/23 20:38 Urine Culture - Final
Urine NO GROWTH
12/25/23 13:35 Blood Culture - Preliminary
Blood/Venous Positive culture in progress
Gram Stain - Preliminary
12/26/23 07:56 Blood Culture - Pending
Blood/Venous
12/25/23 13:35 Blood Parasites Smear - Final
Blood/Venous No blood parasites seen.
12/24/23 18:46 Blood Culture - Preliminary
Blood/Venous Positive culture in progress
Gram Stain - Preliminary
12/24/23 CT a/p: There are multiple calcifications in the pancreas suggesting chronic pancreatitis but no acute findings. There is a left renal calculus but no evidence of hydronephrosis or ureteral calculus. There is diverticulosis but no evidence of
diverticulitis
There is multilevel degenerative disc disease throughout the lumbar spine.
12/24/23 Abd US: Cirrhosis and probable portal hypertension with splenic diameter of 15.9 cm. No abnormal focal hepatic lesion is identified sonographically. No acute intra-abdominal process identified sonographically.
12/24/23 CXR: There is cardiomegaly but no evidence of decompensation.
Care Review
Plan reviewed with: Physician (Dr. Gandara)
--- NOTE | 2023-12-26 10:34 | W.PN.HOSP.TC ---
Today's Communication/Plan
-
Cardiology consult for ZARIA
Continue antibiotics
PT/OT
Add insulin
Assessment / Plan
Assessment / Plan
Gen-AAOx3, NAD
HEENT-NC, AT, anicteric, clear oral mm
Neck-supple
CV-reg, no M, +S1/S2
Lungs-clear B/L
Abd-soft, NT, ND
Ext-no edema
Musculoskeletal-no cyanosis, clubbing
Skin-warm and dry, dry scabbed lesions on plantar aspect of both feet
Neuro-grossly non-focal
Psych-calm, cooperative
MODESTA -suspect due to volume depletion. Creatinine coming down. Continue IV fluids. Hold furosemide. Hold losartan. Stop NSAIDs.
Sepsis -present on admission. Blood cultures positive for gram-positive cocci in chains on 12/23 as well as 12/24. Transthoracic echocardiogram unrevealing. Awaiting ZARIA. Cardiology consulted. Discussed with ID. Concerning given his prior TAVR.
Currently on IV ampicillin, ceftriaxone. Low-grade fevers noted.
DM2 with hyperglycemia -hold oral agents. Use low resistance insulin scale. Hemoglobin A1c 6.7%. Glucose 194 this morning. Add low-dose Lantus, aspart with meals.
Hyponatremia -suspect due to hyperglycemia. Sodium 134.
Acute nontraumatic rhabdomyolysis -CPK trending down. Continue IV fluids.
Elevated transaminases -GGT elevated. Transaminases starting to come down. Abdominal ultrasound suggestive of cirrhosis and probable portal hypertension, no focal hepatic lesion. Will need outpatient follow-up.
COPD without exacerbation
Essential hypertension -stable.
Hyperlipidemia -continue Crestor.
CAD -stable. Transthoracic echocardiogram performed on 12/24 shows reduction in LVEF to 40% which is a change compared to April echocardiogram. Aortic valve gradients have increased.
Aortic stenosis -s/p TAVR.
Diabetic peripheral neuropathy
Esophageal stricture
Chronic thrombocytopenia -unclear etiology. Monitor for now.
Pancytopenia -unclear etiology for leukopenia. Mildly anemic. Monitor for now.
Obesity due to excess calories
DNR
Dispo -PT recommending SNF on discharge.
Anticipated Discharge: > 48 hours
Subjective/Interval History
-
Date of Service: December 26, 2023
Patient seen and examined. No complaints.
Objective Data
-
Labs:
Laboratory Results
12/26/23
07:56
WBC 4.1 L
Hgb 12.1 L
Hct 34.0 L
Plt Count 42 L
Sodium 134 L
Potassium 4.1
Chloride 104
Carbon Dioxide 24
BUN 37 H
Creatinine 1.0
Glucose 187 H
Calcium 8.7
Total Bilirubin 1.8 H
AST 116 H
ALT 69 H
Alkaline Phosphatase 82
Vital Signs:
Vital Signs
Temp Pulse Resp BP Pulse Ox
98.3 F 71 16 144/66 98
12/26/23 03:16 12/26/23 08:41 12/26/23 08:41 12/26/23 03:16 12/26/23 08:41
I&O
12/25/23 12/26/23 12/27/23
06:59 06:59 06:59
Intake Total 400 / 400 2502 / 2502
Output Total 425 / 425 450 / 450
Balance -25 / -25 2051
Review of Systems
-
History Source: Patient
All other systems: Reviewed and negative
[2023-12-26 11:49] LABS: Glucose - Point of Care 230 mg/dl (70-99)
[2023-12-26] MEDS: NOVOLOG FLEXPEN-LOW RESISTANCE 2 UNITS SC ×2 (12:30→17:37)
[2023-12-26] MEDS: NOVOLOG FLEXPEN 4 UNITS SC ×2 (12:31→17:36)
--- NOTE | 2023-12-26 12:32 | CM ---
Patient seen at bedside with .
Discussed therapy recommendation of SNF upon discharge.
Patient declines to go to SNF. Offered Home Health & options.
Patient declines home health.
PLAN: Discharge when stable.
Declines SNF & Home Health
to transport home.
[2023-12-26] MEDS: STERILE WATER FOR INJECTION IV (15:22)
[2023-12-26] MEDS: ROCEPHIN IV (15:22)
[2023-12-26 17:25] LABS: Glucose - Point of Care 214 mg/dl (70-99)
[2023-12-26] MEDS: STERILE WATER FOR INJECTION 20 ML IV (17:37)
[2023-12-26] MEDS: ROCEPHIN 2000 MG IV (17:37)
[2023-12-26 21:17] LABS: Glucose - Point of Care 213 mg/dl (70-99)
[2023-12-26] MEDS: LANTUS 0.05 UNITS SC (21:29)
[2023-12-27] VITALS (8 sets, daily range): BP systolic 115–142; BP diastolic 45–65; PULSE 69; O2SAT 96; BMI 31.6
[2023-12-27] MEDS: AMPICILLIN 108 MG IV ×5 (03:17→22:21)
[2023-12-27] MEDS: STERILE WATER FOR INJECTION 20 ML IV ×2 (06:17→17:46)
[2023-12-27] MEDS: ROCEPHIN 2000 MG IV ×2 (06:17→17:46)
[2023-12-27] MEDS: DUONEB 3 ML INH ×2 (07:16→20:19)
[2023-12-27 07:47] LABS: Glucose - Point of Care 166 mg/dl (70-99)
--- NOTE | 2023-12-27 09:34 | SUR.OPER ---
ZARIA
PT had successful ZARIA, no s/sx of distress post procedure. pt aaox3 and responds appropriately to questions. pt dentures returned post procedure. report called to [facility]. pt dischrged to [facility] per physician order and when appropriate for discharge
[2023-12-27 10:39] LABS: Glucose - Point of Care 179 mg/dl (70-99)
[2023-12-27] MEDS: NOVOLOG FLEXPEN-LOW RESISTANCE 1 UNITS SC ×2 (10:39→17:07)
[2023-12-27] MEDS: NOVOLOG FLEXPEN 4 UNITS SC ×3 (10:39→17:08)
[2023-12-27] MEDS: VITAMIN B-12 1000 MCG PO (10:40)
[2023-12-27] MEDS: MAGNESIUM OXIDE 250 MG PO (10:40)
[2023-12-27] MEDS: THERAGRAN 1 TABLET PO (10:40)
[2023-12-27] MEDS: VITAMIN B-6 50 MG PO (10:40)
[2023-12-27] MEDS: ZETIA 10 MG PO (10:40)
[2023-12-27] MEDS: HEPARIN 5000 UNITS SC ×2 (10:40→20:07)
[2023-12-27] MEDS: IMDUR (EXTENDED RELEASE) 60 MG PO (10:40)
[2023-12-27] MEDS: VITAMIN C 500 MG PO (10:40)
[2023-12-27] MEDS: PROTONIX 40 MG PO (10:46)
--- NOTE | 2023-12-27 10:51 | W.PN.HOSP.TC ---
Today's Communication/Plan
-
Continue antibiotics
Await repeat cultures
Await ZARIA report
Await labs
Assessment / Plan
Assessment / Plan
Gen-AAOx3, NAD
HEENT-NC, AT, anicteric, clear oral mm
Neck-supple
CV-reg, no M, +S1/S2
Lungs-clear B/L
Abd-soft, NT, ND
Ext-no edema
Musculoskeletal-no cyanosis, clubbing
Skin-warm and dry, dry scabbed lesions on plantar aspect of both feet
Neuro-grossly non-focal
Psych-calm, cooperative
MODESTA -suspect due to volume depletion. Creatinine coming down. Continue IV fluids. Hold furosemide. Hold losartan. Stop NSAIDs. Labs pending for today.
Enterococcal sepsis - present on admission. 12/23 and 12/24 blood cultures positive, 12/25 blood cultures negative so far. Transthoracic echocardiogram unrevealing. ZARIA completed this morning, report pending. Concerning given his prior TAVR. Currently
on IV ampicillin, ceftriaxone. Afebrile.
DM2 with hyperglycemia -hold oral agents. Use low resistance insulin scale. Hemoglobin A1c 6.7%. Glucose 166 this morning. Continue low-dose Lantus and aspart.
Hyponatremia -suspect due to hyperglycemia. Sodium 134.
Acute nontraumatic rhabdomyolysis -CPK improved.
Elevated transaminases -GGT elevated. Transaminases starting to come down. Abdominal ultrasound suggestive of cirrhosis and probable portal hypertension, no focal hepatic lesion. Will need outpatient follow-up.
COPD without exacerbation
Essential hypertension -stable.
Hyperlipidemia -continue Crestor.
CAD -stable. Transthoracic echocardiogram performed on 12/24 shows reduction in LVEF to 40% which is a change compared to April echocardiogram. Aortic valve gradients have increased.
Aortic stenosis -s/p TAVR.
Diabetic peripheral neuropathy
Esophageal stricture
Chronic thrombocytopenia -unclear etiology. Monitor for now.
Pancytopenia -unclear etiology for leukopenia. Mildly anemic. Monitor for now.
Obesity due to excess calories
DNR
Dispo -PT recommending SNF on discharge.
Anticipated Discharge: > 48 hours
Subjective/Interval History
-
Date of Service: December 27, 2023
Patient seen and examined. No complaints.
Objective Data
-
Labs:
Laboratory Results
12/27/23
06:00
WBC Pending
Hgb Pending
Hct Pending
Plt Count Pending
Sodium Pending
Potassium Pending
Chloride Pending
Carbon Dioxide Pending
BUN Pending
Creatinine Pending
Glucose Pending
Calcium Pending
Total Bilirubin Pending
AST Pending
ALT Pending
Alkaline Phosphatase Pending
Vital Signs:
Vital Signs
Temp Pulse Resp BP Pulse Ox
98.6 F 68 16 133/49 96
12/27/23 07:00 12/27/23 07:17 12/27/23 07:17 12/27/23 07:00 12/27/23 07:17
I&O
12/26/23 12/27/23 12/28/23
06:59 06:59 06:59
Intake Total 2502 / 2502 1764 / 1764
Output Total 450 / 450
Balance 2051 / 2051 1764 / 176
Review of Systems
-
History Source: Patient
All other systems: Reviewed and negative
[2023-12-27 12:05] LABS: ALT (SGPT) 65 U/L (0-50); AST (SGOT) 95 U/L (17-59); Albumin 3.3 g/dl (3.5-5.0); Alkaline Phosphatase 95 U/L (38-126); Blood Urea Nitrogen 20 mg/dl (9-20); Calcium 8.6 mg/dl (8.4-10.2); Carbon Dioxide 27 mmol/L (22-30); Chloride 105 mmol/L (98-107); Estimated Creatinine Clearance 76 ml/min; Glucose 191 mg/dl (70-99); Potassium 3.9 mmol/L (3.5-5.1); Sodium 137 mmol/L (135-145); Total Bilirubin 1.3 mg/dl (0.2-1.3); eGFR > 60.00
[2023-12-27 12:06] LABS: Hematocrit 33.7 % (39.0-52.0); Hemoglobin 11.8 g/dL (13.0-18.0); Mean Corpuscular Hgb 31.4 pg (27.0-31.0); Mean Corpuscular Volume 89.6 fL (80.0-94.0); Mean Platelet Volume 12.6 fL (7.4-10.4); Platelet Count 47 10^3/uL (130-400); Red Blood Cell Count 3.76 10^6/uL (4.70-6.10); Red Cell Dist. Width 14.4 % (11.5-14.5); White Blood Cell Count 3.8 10^3/uL (4.8-10.8)
--- NOTE | 2023-12-27 12:07 | CM ---
Patient seen bedside.
repeat bld cultures pending.
Cont IV anbx.
ZARIA completed.
Spouse will transport when ready for d/c.
Plan: home, declined skilled rehab, declined VN.
[2023-12-27] MEDS: AMPICILLIN IV (12:31)
[2023-12-27 13:29] LABS: % Basophils 0.5 % (0-2); % Eosinophils 4.5 % (0-6); % Immature Granulocytes 1.1 % (0-0.5); % Monocytes 11.2 % (1.7-9.3); % Neutrophils 54.7 % (42.2-75.2); Absolute Eosinophils 0.2 10^3/uL (0-0.7); Absolute Lymphocytes 1.1 10^3/uL (1.2-3.4); Absolute Monocytes 0.4 10^3/uL (0.1-0.6); Absolute Neutrophils 2.1 10^3/uL (1.4-6.5); Nucleated Red Blood Cells % 0 % (-)
--- NOTE | 2023-12-27 13:39 | W.PN.ID1 ---
Date of Service
Date of Service: December 27, 2023
Today's Communication
Await ZARIA report.
Assessment / Plan
# Enterococcus faecalis bacteremia - unclear source
# Fever resolving
# Hx TAVR
# Elevated transaminases
-CT a/p unremarkable
- Repeat blood cultures daily until clear.
- TTE - neg gross vege
- ZARIA report pending
- Increase ceftriaxone dose to 2g IV q12.
- Continue IV ampicillin pending culture data.
- Follow temps/wbc
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
s/p TAVR (2021)
CAD s/p stent
COPD
Chronic thrombocytopenia
Hypertension
Dyslipidemia
CHF
Nephrolithiasis
Andre's esophagus/stricture
Obstructive sleep apnea
Arthritis
C3-7 discectomy/laminectomy with screws
Jaw implant bilateral
B TKA
Chief Complaint
-: Bacteremia
Subjective / Review of Systems
Feeling better.
Vital Signs / Physical Exam
Vital Signs
Vital Signs
Temp Pulse Resp BP Pulse Ox
97.9 F 71 18 121/55 94
12/27/23 11:00 12/27/23 11:00 12/27/23 11:00 12/27/23 11:00 12/27/23 11:00
Physical Exam
Constitutional: No Acute Distress
Cardiovascular: Regular Rate
Pulmonary: Clear
Gastrointestinal: Soft, Non Tender and Non Distended
Extremities: Negative Edema
Neurological: AO x 3
Objective Data
Lab Data
Lab Results
12/27/23 11:16
12/27/23 11:16
Estimated Creat Clear 76 ml/min 12/27/23 11:16
Lactic Acid 2.0 mmol/L (0.7-2.0) 12/24/23 08:16
Total Bilirubin 1.3 mg/dl (0.2-1.3) 12/27/23 11:16
GGT 109 U/L (15-73) H 12/24/23 07:26
AST 95 U/L (17-59) H 12/27/23 11:16
ALT 65 U/L (0-50) H 12/27/23 11:16
Alkaline Phosphatase 95 U/L (38-126) 12/27/23 11:16
Most recent labs reviewed.
Micro Results:
12/27/23 11:16 Blood Culture - Pending
Blood/Venous
12/25/23 13:35 Blood Culture - Preliminary
Blood/Venous Enterococcus faecalis
Gram Stain - Preliminary
12/24/23 18:46 Blood Culture - Final
Blood/Venous Enterococcus faecalis
Gram Stain - Final
12/26/23 07:56 Blood Culture - Preliminary
Blood/Venous No Growth in 24 hours- Final report to follow
12/24/23 20:38 Urine Culture - Final
Urine NO GROWTH
12/25/23 13:35 Blood Parasites Smear - Final
Blood/Venous No blood parasites seen.
12/24/23 CT a/p: There are multiple calcifications in the pancreas suggesting chronic pancreatitis but no acute findings. There is a left renal calculus but no evidence of hydronephrosis or ureteral calculus. There is diverticulosis but no evidence of
diverticulitis
There is multilevel degenerative disc disease throughout the lumbar spine.
12/24/23 Abd US: Cirrhosis and probable portal hypertension with splenic diameter of 15.9 cm. No abnormal focal hepatic lesion is identified sonographically. No acute intra-abdominal process identified sonographically.
12/24/23 CXR: There is cardiomegaly but no evidence of decompensation.
[2023-12-27 14:19] LABS: Glucose - Point of Care 206 mg/dl (70-99)
[2023-12-27] MEDS: NOVOLOG FLEXPEN-LOW RESISTANCE 2 UNITS SC (14:19)
--- NOTE | 2023-12-27 14:42 | W.PN.UPDATE ---
Update Note
Progress Note Update
ZARIA without evidence of endocarditis. Patient stable from a cardiac standpoint. Will sign off.
[2023-12-27 17:04] LABS: Glucose - Point of Care 189 mg/dl (70-99)
[2023-12-27] MEDS: CRESTOR 5 MG PO (17:45)
[2023-12-27] MEDS: FLUSH (NSS) 2 FLUSH IV (22:21)
[2023-12-27 22:31] LABS: Glucose - Point of Care 221 mg/dl (70-99)
[2023-12-27] MEDS: LANTUS 0.05 UNITS SC (22:35)
[2023-12-28] MEDS: AMPICILLIN 108 MG IV ×6 (01:52→21:44)
[2023-12-28 03:40] VITALS: BP 110/61
[2023-12-28] MEDS: ROCEPHIN 2000 MG IV ×2 (05:51→17:45)
[2023-12-28] MEDS: STERILE WATER FOR INJECTION 20 ML IV ×2 (05:59→17:45)
[2023-12-28 07:25] VITALS: BP 143/56
[2023-12-28 07:26] LABS: Glucose - Point of Care 160 mg/dl (70-99)
[2023-12-28] MEDS: DUONEB 3 ML INH ×2 (07:56→20:34)
[2023-12-28] MEDS: NOVOLOG FLEXPEN 4 UNITS SC (08:33)
[2023-12-28] MEDS: NOVOLOG FLEXPEN-LOW RESISTANCE 1 UNITS SC (08:34)
[2023-12-28] MEDS: HEPARIN 5000 UNITS SC ×2 (08:35→21:43)
[2023-12-28] MEDS: VITAMIN B-6 50 MG PO (08:36)
[2023-12-28] MEDS: IMDUR (EXTENDED RELEASE) 60 MG PO (08:36)
[2023-12-28] MEDS: ZETIA 10 MG PO (08:36)
[2023-12-28] MEDS: VITAMIN B-12 1000 MCG PO (08:36)
[2023-12-28] MEDS: VITAMIN C 500 MG PO (08:36)
[2023-12-28] MEDS: THERAGRAN 1 TABLET PO (08:36)
[2023-12-28] MEDS: MAGNESIUM OXIDE 250 MG PO (08:36)
[2023-12-28] MEDS: PROTONIX 40 MG PO (08:37)
[2023-12-28 10:12] LABS: Hematocrit 33.5 % (39.0-52.0); Hemoglobin 11.9 g/dL (13.0-18.0); Mean Corp Hgb Conc. 35.5 g/dL (33.0-37.0); Mean Corpuscular Hgb 31.4 pg (27.0-31.0); Mean Corpuscular Volume 88.4 fL (80.0-94.0); Mean Platelet Volume 12.2 fL (7.4-10.4); Platelet Count 66 10^3/uL (130-400); Red Blood Cell Count 3.79 10^6/uL (4.70-6.10); Red Cell Dist. Width 14.2 % (11.5-14.5)
[2023-12-28 10:25] LABS: ALT (SGPT) 73 U/L (0-50); AST (SGOT) 97 U/L (17-59); Albumin 3.5 g/dl (3.5-5.0); Alkaline Phosphatase 136 U/L (38-126); Blood Urea Nitrogen 13 mg/dl (9-20); Calcium 8.7 mg/dl (8.4-10.2); Carbon Dioxide 25 mmol/L (22-30); Chloride 107 mmol/L (98-107); Estimated Creatinine Clearance 76 ml/min; Glucose 213 mg/dl (70-99); Sodium 137 mmol/L (135-145); Total Protein 6.4 g/dl (6.3-8.2); eGFR > 60.00
[2023-12-28 11:12] LABS: % Basophils 0.7 % (0-2); % Eosinophils 5.7 % (0-6); % Immature Granulocytes 1.2 % (0-0.5); % Lymphocytes 37.5 % (20.5-51.1); % Monocytes 10.2 % (1.7-9.3); % Neutrophils 44.7 % (42.2-75.2); Absolute Eosinophils 0.2 10^3/uL (0-0.7); Absolute Immature Granulocytes 0.1 10^3/uL (0-0.05); Absolute Lymphocytes 1.5 10^3/uL (1.2-3.4); Absolute Monocytes 0.4 10^3/uL (0.1-0.6); Absolute Neutrophils 1.8 10^3/uL (1.4-6.5); Nucleated Red Blood Cells % 0 % (-)
[2023-12-28 11:39] VITALS: BP 109/58
--- NOTE | 2023-12-28 11:56 | W.PN.HOSP.TC ---
Today's Communication/Plan
-
continue antibiotics
adjust insulin
Assessment / Plan
Assessment / Plan
Gen-AAOx3, NAD, obese
HEENT-NC, AT, anicteric, clear oral mm
Neck-supple
CV-reg, no M, +S1/S2
Lungs-clear B/L
Abd-soft, NT, ND
Ext-no edema
Musculoskeletal-no cyanosis, clubbing
Skin-warm and dry, dry scabbed lesions on plantar aspect of both feet
Neuro-grossly non-focal
Psych-calm, cooperative
MODESTA -suspect due to volume depletion. MODESTA resolved. Lasix, losartan on hold. Avoid NSAIDS.
Enterococcal sepsis - present on admission. CT Abd/pelvis on admission without clear source. 12/23 and 12/24 blood cultures positive, 12/25 & 12/26 blood cultures negative so far. ZARIA negative for vegetations.
DM2 with hyperglycemia -hold oral agents. Was on Glipizide and Trulicity prior to admission. Hemoglobin A1c 6.7%. Glucose 160 this morning. Continue Lantus 5u HS, increase aspart to 5u AC. Will not discharge on insulin, resume home meds.
Hyponatremia -resolved.
Acute nontraumatic rhabdomyolysis -CPK improved.
Elevated transaminases -GGT elevated. Transaminases starting to come down. Abdominal ultrasound suggestive of cirrhosis and probable portal hypertension, no focal hepatic lesion. Will need outpatient follow-up.
COPD without exacerbation
Essential hypertension -stable.
Hyperlipidemia -continue Crestor (M/W/F).
CAD -stable. Transthoracic echocardiogram performed on 12/24 shows reduction in LVEF to 40% which is a change compared to April echocardiogram. Aortic valve gradients have increased.
Aortic stenosis -s/p TAVR.
Diabetic peripheral neuropathy
Esophageal stricture
Chronic thrombocytopenia -unclear etiology. Monitor for now.
Pancytopenia -unclear etiology for leukopenia. Mildly anemic. Monitor for now.
Obesity due to excess calories
DNR
Dispo -PT recommending home health on discharge. ID recommends discharge on IV antibiotics. Will need VN arranged. Case management aware. Soonest would be Saturday discharge.
updated at bedside.
Anticipated Discharge: > 48 hours
Subjective/Interval History
-
Date of Service: December 28, 2023
Patient seen/examined. No complaints.
Objective Data
-
Labs:
Laboratory Results
12/28/23
08:53
WBC 4.0 L
Hgb 11.9 L
Hct 33.5 L
Plt Count 66 L D
Sodium 137
Potassium 4.0
Chloride 107
Carbon Dioxide 25
BUN 13
Creatinine 0.9
Glucose 213 H
Calcium 8.7
Total Bilirubin 1.0
AST 97 H
ALT 73 H
Alkaline Phosphatase 136 H
Vital Signs:
Vital Signs
Temp Pulse Resp BP Pulse Ox
98.0 F 74 18 109/58 96
12/28/23 11:39 12/28/23 11:39 12/28/23 11:39 12/28/23 11:39 12/28/23 11:39
I&O
12/27/23 12/28/23 12/29/23
06:59 06:59 06:59
Intake Total 1764 / 1764 1284 / 1284
Balance 1764 / 1764 1284 / 1284
Review of Systems
-
History Source: Patient
All other systems: Reviewed and negative
[2023-12-28 12:06] LABS: Glucose - Point of Care 227 mg/dl (70-99)
[2023-12-28] MEDS: NOVOLOG FLEXPEN 5 UNITS SC (12:15)
[2023-12-28] MEDS: NOVOLOG FLEXPEN-LOW RESISTANCE 2 UNITS SC (12:16)
--- NOTE | 2023-12-28 13:00 | CM ---
Per Attending, patient will need Home IV antibiotics for 2 weeks per ID. Will probably DC on Saturday. No Script was sent today
CM assigned will contact [facility] on Saturday and send script when available
Plan: Discharge on Saturday to home with home infusion therapy for 2 weeks
[2023-12-28] MEDS: NOVOLOG FLEXPEN SC ×2 (13:48→17:00)
--- NOTE | 2023-12-28 14:59 | W.PN.ID1 ---
Date of Service
Date of Service: December 28, 2023
Today's Communication
See below.
Assessment / Plan
# Enterococcus faecalis bacteremia - unclear source
# Fever resolved
# Hx TAVR
# Elevated transaminases
-CT a/p unremarkable
- Repeat blood cultures x 2 neg to date.
- TTE - neg gross vege
- ZARIA report negative
- Continue IV ampicillin and ceftriaxone for now.
- On Saturday, will have case management set up home IV ampicillin 12g/24 hr continuos infusion through 01/08/24
Surveillance blood cultures x 2 one to two weeks after completion of abx.
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
s/p TAVR (2021)
CAD s/p stent
COPD
Chronic thrombocytopenia
Hypertension
Dyslipidemia
CHF
Nephrolithiasis
Andre's esophagus/stricture
Obstructive sleep apnea
Arthritis
C3-7 discectomy/laminectomy with screws
Jaw implant bilateral
B TKA
Chief Complaint
-: Bacteremia
Subjective / Review of Systems
Feels well. No pain.
Vital Signs / Physical Exam
Vital Signs
Vital Signs
Temp Pulse Resp BP Pulse Ox
98.0 F 74 18 109/58 96
12/28/23 11:39 12/28/23 11:39 12/28/23 11:39 12/28/23 11:39 12/28/23 11:39
Physical Exam
Constitutional: No Acute Distress and Comfortable
Cardiovascular: Regular Rate and S1/S2
Pulmonary: Clear
Gastrointestinal: Soft, Non Tender and Non Distended
Extremities: Negative Edema
Neurological: AO x 3
Objective Data
Lab Data
Lab Results
12/28/23 08:53
12/28/23 08:53
Estimated Creat Clear 76 ml/min 12/28/23 08:53
Lactic Acid 2.0 mmol/L (0.7-2.0) 12/24/23 08:16
Total Bilirubin 1.0 mg/dl (0.2-1.3) 12/28/23 08:53
GGT 109 U/L (15-73) H 12/24/23 07:26
AST 97 U/L (17-59) H 12/28/23 08:53
ALT 73 U/L (0-50) H 12/28/23 08:53
Alkaline Phosphatase 136 U/L (38-126) H 12/28/23 08:53
Most recent labs reviewed.
Micro Results:
12/27/23 11:16 Blood Culture - Preliminary
Blood/Venous No Growth in 24 hours- Final report to follow
12/26/23 07:56 Blood Culture - Preliminary
Blood/Venous No Growth in 48 hours- Final report to follow
12/25/23 13:35 Blood Culture - Preliminary
Blood/Venous Enterococcus faecalis
Gram Stain - Preliminary
12/24/23 18:46 Blood Culture - Final
Blood/Venous Enterococcus faecalis
Gram Stain - Final
12/24/23 20:38 Urine Culture - Final
Urine NO GROWTH
12/25/23 13:35 Blood Parasites Smear - Final
Blood/Venous No blood parasites seen.
12/24/23 CT a/p: There are multiple calcifications in the pancreas suggesting chronic pancreatitis but no acute findings. There is a left renal calculus but no evidence of hydronephrosis or ureteral calculus. There is diverticulosis but no evidence of
diverticulitis
There is multilevel degenerative disc disease throughout the lumbar spine.
12/24/23 Abd US: Cirrhosis and probable portal hypertension with splenic diameter of 15.9 cm. No abnormal focal hepatic lesion is identified sonographically. No acute intra-abdominal process identified sonographically.
12/24/23 CXR: There is cardiomegaly but no evidence of decompensation.
Care Review
Plan reviewed with: Physician (Dr. Gandara)
[2023-12-28 15:42] VITALS: BP 148/62
[2023-12-28 17:35] LABS: Glucose - Point of Care 141 mg/dl (70-99)
[2023-12-28] MEDS: NOVOLOG FLEXPEN-LOW RESISTANCE 5 UNITS SC (17:45)
[2023-12-28 19:38] VITALS: BP 106/85
[2023-12-28 21:16] LABS: Glucose - Point of Care 167 mg/dl (70-99)
[2023-12-28] MEDS: LANTUS 0.05 UNITS SC (21:50)
[2023-12-28] MEDS: FLUSH (NSS) 2 FLUSH IV (21:50)
[2023-12-28 23:19] VITALS: BP 136/56
[2023-12-29] MEDS: AMPICILLIN 108 MG IV ×6 (02:31→21:15)
[2023-12-29] MEDS: FLUSH (NSS) 2 FLUSH IV ×2 (02:32→05:18)
[2023-12-29 03:34] VITALS: BP 114/64
[2023-12-29] MEDS: ROCEPHIN 2000 MG IV ×2 (05:13→17:27)
[2023-12-29] MEDS: STERILE WATER FOR INJECTION 20 ML IV ×2 (05:13→17:37)
[2023-12-29 07:24] VITALS: BP 143/58
[2023-12-29] MEDS: DUONEB 3 ML INH ×2 (07:33→20:08)
[2023-12-29] MEDS: THERAGRAN 1 TABLET PO (07:45)
[2023-12-29] MEDS: MAGNESIUM OXIDE 250 MG PO (07:45)
[2023-12-29] MEDS: HEPARIN 5000 UNITS SC ×2 (07:45→21:15)
[2023-12-29] MEDS: IMDUR (EXTENDED RELEASE) 60 MG PO (07:45)
[2023-12-29] MEDS: VITAMIN B-12 1000 MCG PO (07:45)
[2023-12-29] MEDS: PROTONIX 40 MG PO (07:46)
[2023-12-29] MEDS: VITAMIN B-6 50 MG PO (07:46)
[2023-12-29] MEDS: ZETIA 10 MG PO (07:46)
[2023-12-29] MEDS: VITAMIN C 500 MG PO (07:46)
[2023-12-29 08:00] LABS: Glucose - Point of Care 177 mg/dl (70-99)
[2023-12-29] MEDS: NOVOLOG FLEXPEN 5 UNITS SC ×3 (08:16→17:34)
[2023-12-29] MEDS: NOVOLOG FLEXPEN-LOW RESISTANCE 1 UNITS SC (08:17)
--- NOTE | 2023-12-29 08:36 | W.PN.HOSP.TC ---
Today's Communication/Plan
-
Continue current care
Assessment / Plan
Assessment / Plan
Gen-AAOx3, NAD, obese
HEENT-NC, AT, anicteric, clear oral mm
Neck-supple
CV-reg, no M, +S1/S2
Lungs-clear B/L
Abd-soft, NT, ND
Ext-no edema
Musculoskeletal-no cyanosis, clubbing
Skin-warm and dry, dry scabbed lesions on plantar aspect of both feet
Neuro-grossly non-focal
Psych-calm, cooperative
MODESTA -suspect due to volume depletion. MODESTA resolved. Lasix, losartan on hold. Avoid NSAIDS.
Enterococcal sepsis - present on admission. CT Abd/pelvis on admission without clear source. 12/23 and 12/24 blood cultures positive, 12/25 & 12/26 blood cultures negative so far. ZARIA negative for vegetations. ID recommends IV antibiotics on discharge
until January 07. Plan to set up visiting nursing and PICC line and discharge hopefully Saturday.
DM2 with hyperglycemia -hold oral agents. Was on Glipizide and Trulicity prior to admission. Hemoglobin A1c 6.7%. Glucose 177 this morning. Continue Lantus 5u HS, aspart 5u AC. Will not discharge on insulin, resume home meds.
Hyponatremia -resolved.
Acute nontraumatic rhabdomyolysis -CPK improved.
Elevated transaminases -GGT elevated. Transaminases starting to come down. Abdominal ultrasound suggestive of cirrhosis and probable portal hypertension, no focal hepatic lesion. Will need outpatient follow-up.
COPD without exacerbation
Essential hypertension -stable.
Hyperlipidemia -continue Crestor (M/W/F).
CAD -stable. Transthoracic echocardiogram performed on 12/24 shows reduction in LVEF to 40% which is a change compared to April echocardiogram. Aortic valve gradients have increased.
Aortic stenosis -s/p TAVR.
Diabetic peripheral neuropathy
Esophageal stricture
Chronic thrombocytopenia -unclear etiology. Monitor for now.
Pancytopenia -unclear etiology for leukopenia. Mildly anemic. Monitor for now.
Obesity due to excess calories
DNR
Dispo -hopefully discharge Saturday after home antibiotics arranged. Visiting nursing.
Anticipated Discharge: Within 24 hours
Subjective/Interval History
-
Date of Service: December 29, 2023
Patient seen and examined. No complaints.
Objective Data
-
Vital Signs:
Vital Signs
Temp Pulse Resp BP Pulse Ox
98.3 F 62 16 143/58 97
12/29/23 07:24 12/29/23 07:33 12/29/23 07:33 12/29/23 07:24 12/29/23 07:33
I&O
12/28/23 12/29/23 12/30/23
06:59 06:59 06:59
Intake Total 1284 / 1284 1879
Balance 1284 / 1284 1879
Review of Systems
-
History Source: Patient
All other systems: Reviewed and negative
[2023-12-29 09:02] VITALS: BMI 31.6
[2023-12-29 11:36] VITALS: BP 142/67
[2023-12-29] MEDS: NOVOLOG FLEXPEN-LOW RESISTANCE 2 UNITS SC ×2 (12:00→17:34)
[2023-12-29 12:07] LABS: Glucose - Point of Care 223 mg/dl (70-99)
--- NOTE | 2023-12-29 14:47 | W.PN.ID1 ---
Date of Service
Date of Service: December 29, 2023
Today's Communication
Continue abx's.
Assessment / Plan
# Enterococcus faecalis bacteremia - unclear source
# Fever resolved
# Hx TAVR
# Elevated transaminases
-CT a/p unremarkable
- Repeat blood cultures x 2 neg to date.
- TTE - neg gross vege
- ZARIA - negative vege
- Continue IV ampicillin and ceftriaxone for now.
-Midline ordered
- On Saturday/tomorrow, will have case management set up home IV ampicillin 12g/24 hr continuos infusion through 01/08/24
Surveillance blood cultures x 2 one to two weeks after completion of abx.
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
s/p TAVR (2021)
CAD s/p stent
COPD
Chronic thrombocytopenia
Hypertension
Dyslipidemia
CHF
Nephrolithiasis
Andre's esophagus/stricture
Obstructive sleep apnea
Arthritis
C3-7 discectomy/laminectomy with screws
Jaw implant bilateral
B TKA
Chief Complaint
-: Bacteremia
Subjective / Review of Systems
Wants to go home.
Vital Signs / Physical Exam
Vital Signs
Vital Signs
Temp Pulse Resp BP Pulse Ox
98.5 F 67 12 142/67 98
12/29/23 11:36 12/29/23 11:36 12/29/23 11:36 12/29/23 11:36 12/29/23 11:36
Physical Exam
Constitutional: No Acute Distress and Comfortable
Pulmonary: Clear
Gastrointestinal: Soft, Non Tender and Non Distended
Musculoskeletal: Negative Spinal Tenderness
Objective Data
Lab Data
Lab Results
12/28/23 08:53
12/28/23 08:53
Estimated Creat Clear 76 ml/min 12/28/23 08:53
Lactic Acid 2.0 mmol/L (0.7-2.0) 12/24/23 08:16
Total Bilirubin 1.0 mg/dl (0.2-1.3) 12/28/23 08:53
GGT 109 U/L (15-73) H 12/24/23 07:26
AST 97 U/L (17-59) H 12/28/23 08:53
ALT 73 U/L (0-50) H 12/28/23 08:53
Alkaline Phosphatase 136 U/L (38-126) H 12/28/23 08:53
Most recent labs reviewed.
Micro Results:
12/27/23 11:16 Blood Culture - Preliminary
Blood/Venous No Growth in 48 hours- Final report to follow
12/26/23 07:56 Blood Culture - Preliminary
Blood/Venous No Growth in 72 hours- Final report to follow
12/25/23 13:35 Blood Culture - Preliminary
Blood/Venous Enterococcus faecalis
Gram Stain - Preliminary
12/24/23 18:46 Blood Culture - Final
Blood/Venous Enterococcus faecalis
Gram Stain - Final
12/24/23 20:38 Urine Culture - Final
Urine NO GROWTH
12/25/23 13:35 Blood Parasites Smear - Final
Blood/Venous No blood parasites seen.
12/24/23 CT a/p: There are multiple calcifications in the pancreas suggesting chronic pancreatitis but no acute findings. There is a left renal calculus but no evidence of hydronephrosis or ureteral calculus. There is diverticulosis but no evidence of
diverticulitis
There is multilevel degenerative disc disease throughout the lumbar spine.
12/24/23 Abd US: Cirrhosis and probable portal hypertension with splenic diameter of 15.9 cm. No abnormal focal hepatic lesion is identified sonographically. No acute intra-abdominal process identified sonographically.
12/24/23 CXR: There is cardiomegaly but no evidence of decompensation.
[2023-12-29 16:00] VITALS: BP 131/55
[2023-12-29 17:35] LABS: Glucose - Point of Care 223 mg/dl (70-99)
[2023-12-29 19:52] VITALS: BP 153/61
[2023-12-29] MEDS: FLUSH (NSS) 3 FLUSH IV (21:17)
[2023-12-29 21:38] LABS: Glucose - Point of Care 222 mg/dl (70-99)
[2023-12-29] MEDS: LANTUS 0.05 UNITS SC (22:57)
[2023-12-29 23:13] VITALS: BP 135/58
[2023-12-30] MEDS: AMPICILLIN 108 MG IV ×4 (02:54→14:11)
[2023-12-30 03:52] VITALS: BP 151/75
[2023-12-30] MEDS: ROCEPHIN 2000 MG IV (05:28)
[2023-12-30] MEDS: STERILE WATER FOR INJECTION 20 ML IV (05:28)
[2023-12-30 07:00] VITALS: BP 151/59
[2023-12-30] MEDS: DUONEB 3 ML INH (07:04)
[2023-12-30 07:37] LABS: Glucose - Point of Care 183 mg/dl (70-99)
[2023-12-30] MEDS: NOVOLOG FLEXPEN-LOW RESISTANCE 1 UNITS SC (08:38)
[2023-12-30] MEDS: NOVOLOG FLEXPEN 5 UNITS SC ×2 (08:39→12:26)
[2023-12-30] MEDS: IMDUR (EXTENDED RELEASE) 60 MG PO (08:40)
[2023-12-30] MEDS: MAGNESIUM OXIDE 250 MG PO (08:40)
[2023-12-30] MEDS: PROTONIX 40 MG PO (08:40)
[2023-12-30] MEDS: THERAGRAN 1 TABLET PO (08:40)
[2023-12-30] MEDS: VITAMIN B-12 1000 MCG PO (08:40)
[2023-12-30] MEDS: ZETIA 10 MG PO (08:40)
[2023-12-30] MEDS: HEPARIN 5000 UNITS SC (08:41)
[2023-12-30] MEDS: VITAMIN B-6 50 MG PO (08:41)
[2023-12-30] MEDS: VITAMIN C 500 MG PO (08:41)
--- NOTE | 2023-12-30 08:59 | W.PN.HOSP.TC ---
Today's Communication/Plan
-
Discharge planning today.
Assessment / Plan
Assessment / Plan
Gen-AAOx3, NAD, obese
HEENT-NC, AT, anicteric, clear oral mm
Neck-supple
CV-reg, no M, +S1/S2
Lungs-clear B/L
Abd-soft, NT, ND
Ext-no edema
Musculoskeletal-no cyanosis, clubbing
Skin-warm and dry, dry scabbed lesions on plantar aspect of both feet
Neuro-grossly non-focal
Psych-calm, cooperative
A/P:
MODESTA -suspect due to volume depletion. MODESTA resolved. Lasix, losartan on hold. Avoid NSAIDS. Can restart losartan.
Enterococcal sepsis - present on admission. CT Abd/pelvis on admission without clear source. 12/23 and 12/24 blood cultures positive, 12/25 & 12/26 blood cultures negative so far. ZARIA negative for vegetations. ID recommends IV antibiotics on discharge
until January 07 initially but patient refuses IV antibiotics long-term so ID reevaluated patient and decided on oral antibiotics until 01/21/2024. Discussed with mental health case manager. Discussed with at bedside. Plan to discharge today
DM2 with hyperglycemia -hold oral agents. Was on Glipizide and Trulicity prior to admission. Hemoglobin A1c 6.7%. Glucose 177 this morning. Continue Lantus 5u HS, aspart 5u AC. Will not discharge on insulin, resume home meds.
Hyponatremia -resolved.
Acute nontraumatic rhabdomyolysis -CPK improved.
Elevated transaminases -GGT elevated. Transaminases starting to come down. Abdominal ultrasound suggestive of cirrhosis and probable portal hypertension, no focal hepatic lesion. Will need outpatient follow-up.
COPD without exacerbation
Essential hypertension -stable.
Hyperlipidemia -continue Crestor (M/W/F).
CAD -stable. Transthoracic echocardiogram performed on 12/24 shows reduction in LVEF to 40% which is a change compared to April echocardiogram. Aortic valve gradients have increased.
Aortic stenosis -s/p TAVR.
Diabetic peripheral neuropathy
Esophageal stricture
Chronic thrombocytopenia -unclear etiology. Monitor for now.
Pancytopenia -unclear etiology for leukopenia. Mildly anemic. Monitor for now.
Obesity due to excess calories
DNR
Anticipated Discharge: Today
Subjective/Interval History
-
Date of Service: December 30, 2023
Denies new complaints. Afebrile
Objective Data
-
Vital Signs:
Vital Signs
Temp Pulse Resp BP Pulse Ox
99.1 F 69 16 151/59 94
12/30/23 07:00 12/30/23 07:04 12/30/23 07:04 12/30/23 07:00 12/30/23 07:04
I&O
12/29/23 12/30/23 12/31/23
06:59 06:59 06:59
Intake Total 1879 / 1775
Balance 1879 / 1775
[2023-12-30 11:00] VITALS: BP 141/58
[2023-12-30 11:51] LABS: Glucose - Point of Care 218 mg/dl (70-99)
[2023-12-30] MEDS: DUONEB INH (12:25)
[2023-12-30] MEDS: NOVOLOG FLEXPEN-LOW RESISTANCE 2 UNITS SC (12:26)
--- NOTE | 2023-12-30 12:54 | W.PN.ID1 ---
Date of Service
Date of Service: December 30, 2023
Today's Communication
DC home on high dose amoxicillin 1g po q8h and through 01/21/24 (treat longer).
Assessment / Plan
# Enterococcus faecalis bacteremia - unclear source
# Fever resolved
# Hx TAVR
# Elevated transaminases
-CT a/p unremarkable
- Repeat blood cultures x 2 neg to date.
- TTE - neg gross vege
- ZARIA - negative vege
- Currently IV ampicillin and ceftriaxone (d6)
- I recommend IV ampicillin 12g/24 hr continuos infusion through 01/08/24 with surveillance blood cultures x 2 one to two weeks after completion of abx.
-However, PT REFUSES to pay for $20/day for home IV abx. HE clearly states he wants oral abx and NOT IV abx. ]
I explained to patient and that IV ampicillin for E. faecalis bacteremia is the best course as oral amoxicillin does not have the same bioavailability as IV ampicillin.
Risk for relapse is higher on on oral antibiotic. Pt understands the discussion and states he is willing to take the risk with oral abx.
- Plan: DC home on high dose amoxicillin 1g po q8h and through 01/21/24 (treat longer).
Obtain surveillance blood cultures at 1 week and 2 weeks after completion of antibiotic.
- Follow-up with me end of December.
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
s/p TAVR (2021)
CAD s/p stent
COPD
Chronic thrombocytopenia
Hypertension
Dyslipidemia
CHF
Nephrolithiasis
Andre's esophagus/stricture
Obstructive sleep apnea
Arthritis
C3-7 discectomy/laminectomy with screws
Jaw implant bilateral
B TKA
Chief Complaint
-: Bacteremia
Subjective / Review of Systems
Wants to go home. Refusing home IV ampicillin.
at bedside.
Vital Signs / Physical Exam
Vital Signs
Vital Signs
Temp Pulse Resp BP Pulse Ox
98.2 F 72 16 141/58 96
12/30/23 11:00 12/30/23 11:00 12/30/23 11:00 12/30/23 11:00 12/30/23 11:00
Physical Exam
Constitutional: No Acute Distress
Pulmonary: Clear
Gastrointestinal: Soft, Non Tender and Normal Bowel Sounds
Extremities: Negative Edema
Musculoskeletal: Negative Spinal Tenderness
Neurological: AO x 3
Objective Data
Lab Data
Lab Results
12/28/23 08:53
12/28/23 08:53
Estimated Creat Clear 76 ml/min 12/28/23 08:53
Lactic Acid 2.0 mmol/L (0.7-2.0) 12/24/23 08:16
Total Bilirubin 1.0 mg/dl (0.2-1.3) 12/28/23 08:53
GGT 109 U/L (15-73) H 12/24/23 07:26
AST 97 U/L (17-59) H 12/28/23 08:53
ALT 73 U/L (0-50) H 12/28/23 08:53
Alkaline Phosphatase 136 U/L (38-126) H 12/28/23 08:53
Most recent labs reviewed.
Micro Results:
12/27/23 11:16 Blood Culture - Preliminary
Blood/Venous No Growth in 72 hours- Final report to follow
12/26/23 07:56 Blood Culture - Preliminary
Blood/Venous No Growth in 4 days- Final report to follow
12/25/23 13:35 Blood Culture - Preliminary
Blood/Venous Enterococcus faecalis
Gram Stain - Preliminary
12/24/23 18:46 Blood Culture - Final
Blood/Venous Enterococcus faecalis
Gram Stain - Final
12/24/23 20:38 Urine Culture - Final
Urine NO GROWTH
12/25/23 13:35 Blood Parasites Smear - Final
Blood/Venous No blood parasites seen.
12/24/23 CT a/p: There are multiple calcifications in the pancreas suggesting chronic pancreatitis but no acute findings. There is a left renal calculus but no evidence of hydronephrosis or ureteral calculus. There is diverticulosis but no evidence of
diverticulitis
There is multilevel degenerative disc disease throughout the lumbar spine.
12/24/23 Abd US: Cirrhosis and probable portal hypertension with splenic diameter of 15.9 cm. No abnormal focal hepatic lesion is identified sonographically. No acute intra-abdominal process identified sonographically.
12/24/23 CXR: There is cardiomegaly but no evidence of decompensation.
Care Review
Plan reviewed with: Physician (Dr. Foreman)
--- NOTE | 2023-12-30 12:58 | CM ---
Patient seen bedside.
Agreeable to [facility] and [facility].
Referrals sent.
George from [facility] out to see patient. Patient refused copays.
Refused IZV anbx if he has copays.
MD updated.
Plan: home with oral anbx
patient declined skilled rehab and VN.
--- NOTE | 2023-12-30 13:24 | W.DCSUMMARY ---
Discharge Summary
Discharge Data
Date of Admission: 12/24/23
Date of Discharge: 12/30/23
-
Pending Results: No
Hospital Course
Patient 83 years old male with history of COPD, diabetes mellitus, CAD, TAVR, thrombocytopenia, CHF, presented to the hospital with fevers. Patient etiology of his fevers related to bacteremia but source was unclear. He did have positive blood
cultures. ID consulted. He did have Enterococcus faecalis bacteremia. Patient was treated with IV antibiotics. Workup unremarkable including TTE negative, ZARIA negative for vegetations, CT scan of the abdomen pelvis no evidence of acute
abnormality, ultrasound of the abdomen unremarkable, chest x-ray unremarkable. Blood cultures positive on 12/24. Blood cultures started on 12/25 and 12/26. Last fever on 12/24 and remained afebrile throughout the rest of the hospital course. Cardiology
has been consulted and they have seen him throughout this hospital stay and performed ZARIA. Patient was recommended long-term IV antibiotics upon discharge but patient refused. He does not want to pay the co-pay. I explained to him that he would
have to sign AGAINST MEDICAL ADVICE if he wants to go without IV antibiotics but shortly after I saw him, ID has cleared him for discharge. ID explained risks and benefits but he insisted on oral antibiotics so patient was switched to oral
antibiotics upon discharge understanding he is willing to take the risk of a lesser alternative in terms of efficacy and greater risk of relapse. Otherwise, patient hemodynamically stable and he will be discharged today.
Discharge duration: 35 minutes
Discharge Plan
-
Patient Disposition: Home with Home Care
Discharge Diagnosis/Procedures: Enterococcal sepsis, acute kidney injury
Condition: Good
Diet: Diabetic, Carb Controlled
Activity: As tolerated
Driving Restrictions: As prior to admission
Bathing Restrictions: None
Blood Work: Please PCP to order CBC, BMP within 1 week
Other Services: VN
Referrals:
Marquis West MD [Family Provider] - in less than 1 week
Hossein Vivar MD [Active] - in four to six weeks
Rachna Gaona MD [Active] - in two to three weeks
Prescriptions:
Continued
garlic 400 mg Tablet,Delayed Release (Dr/Ec)
400 mg PO DAILY
cyanocobalamin (vitamin B-12) 1,000 mcg Tablet
1,000 mcg PO DAILY
therapeutic multivitamin Tablet
1 tab PO DAILY
isosorbide mononitrate 60 mg Tablet Extended Release 24 Hr
60 mg PO DAILY
potassium 99 mg Tablet
99 mg PO DAILY
ascorbic acid (vitamin C) [Vitamin C] 500 mg Tablet
1,000 mg PO DAILY
pantoprazole [Protonix] 40 mg Tablet,Delayed Release (Dr/Ec)
40 mg PO DAILY
losartan 25 mg Tablet
25 mg PO DAILY
pyridoxine (vitamin B6) 50 mg Tablet
50 mg PO DAILY
furosemide [Lasix] 20 mg Tablet
20 mg PO MOWEFR
glipizide 5 mg Tablet
5 mg PO DAILY
ezetimibe [Zetia] 10 mg Tablet
10 mg PO DAILY
rosuvastatin 5 mg Tablet
5 mg PO MOWEFR
Trulicity 0.75 mg/0.5 mL Pen Injector
0.75 mg SC FR
magnesium oxide 200 mg magnesium Tablet
200 mg PO DAILY
No Action
aspirin 81 mg Capsule
81 mg PO DAILY
amoxicillin 500 mg Capsule
1,000 mg PO Q8H
oxycodone-acetaminophen 10-325 mg Tablet
1 tab PO Q6HPRN PRN (Reason: severe pains)
Discharge Orders:
Discharge Patient (As Directed); Ordered 12/30/23
Ordered By: Obed Foreman
Discharge Date and Time
Discharge Date/Time: 12/30/23 15:41
Print Language: [place] CITIZ[place]
[2023-12-30 15:00] VITALS: BP 143/57
== END 2023-12-30 15:41 | disposition home or self-care (01) | DRG 872 ==
LOC: 4 WEST ACU 10:25
PROVIDERS: ADMITTING PHYSICIAN Hospitalist; ATTENDING PHYSICIAN Hospitalist; CONSULT PHYSICIAN Internal Medicine Infectious Disease; EMERGENCY PHYSICIAN Emergency Medicine; FAMILY PHYSICIAN Family Medicine; OTHER PHYSICIAN Internal Medicine Cardiovascular Disease
DX: A41.81 Sepsis due to Enterococcus (principal); E87.1 Hypo-osmolality and hyponatremia; I50.22 Chronic systolic (congestive) heart failure; N17.9 Acute kidney failure, unspecified; Q21.12 Patent foramen ovale; D61.818 Other pancytopenia; M62.82 Rhabdomyolysis; E11.42 Type 2 diabetes mellitus with diabetic polyneuropathy; I11.0 Hypertensive heart disease with heart failure; Z66 Do not resuscitate; E11.65 Type 2 diabetes mellitus with hyperglycemia; E66.09 Other obesity due to excess calories; Z68.31 Body mass index [BMI] 31.0-31.9, adult; I35.0 Nonrheumatic aortic (valve) stenosis; J44.9 Chronic obstructive pulmonary disease, unspecified; Z95.2 Presence of prosthetic heart valve; K22.2 Esophageal obstruction; E78.00 Pure hypercholesterolemia, unspecified; G47.33 Obstructive sleep apnea (adult) (pediatric); I25.10 Atherosclerotic heart disease of native coronary artery without angina pectoris; I25.5 Ischemic cardiomyopathy; Z95.5 Presence of coronary angioplasty implant and graft; K21.9 Gastro-esophageal reflux disease without esophagitis; K22.70 Barrett's esophagus without dysplasia; M19.90 Unspecified osteoarthritis, unspecified site; M25.551 Pain in right hip; M25.561 Pain in right knee; W06.XXXA Fall from bed, initial encounter; R74.01 Elevation of levels of liver transaminase levels; Z11.52 Encounter for screening for COVID-19; Z79.84 Long term (current) use of oral hypoglycemic drugs; Z79.899 Other long term (current) drug therapy; Z87.891 Personal history of nicotine dependence; Z87.442 Personal history of urinary calculi; Z96.653 Presence of artificial knee joint, bilateral; Z88.8 Allergy status to other drugs, medicaments and biological substances
CPT/HCPCS: 71046; 73502; 74176; 76700; 80053; 81003; 81015; 82248; 82550; 82962; 82977; 83036; 83605; 85025; 87015; 87040; 87077; 87086; 87186; 87205; 87207; 87811; 93005; 93306; 93312; 93320; 93325; 94640; 96360; 97163; 97167; 97530; 99285; Q9950

== ENCOUNTER 2023-12-31 09:23 | Inpatient (IN) | payer MEDICARE, BC, SELFPAY ==
[2023-12-31] VITALS (57 sets, daily range): BP systolic 104–174; BP diastolic 42–152; PULSE 2–114; BMI 32.3
--- NOTE | 2023-12-31 06:00 | ED.GENMED ---
History of Present Illness
General
Chief Complaint: Breathing Problem
Source: patient and ambulance crew
Exam Limitations: none
Time Seen by Provider: 12/31/23 06:00
Nursing documentation reviewed up to this point in time: agreed with
History of Present Illness
History of Present Illness:
83-year-old male presents emergency department from home via EMS in severe respiratory distress. He was placed on nonrebreather, with oxygen saturation 91%. Call to 911 for chest pain and shortness of breath. Recent d/c from hospital yesterday.
Past History
Past History
ED Past Medical History: COPD, NIDDM and Other (Esophageal stricture, AL, aortic stenosis, peripheral neuropathy)
Social History
Tobacco: Former smoker
Alcohol: None
Drug: None
Personal:
Living: with family
Family History
Family History: Negative Diabetes or Hypertension
Review of Systems
Review of Systems
Allergies reviewed?: Yes
All Other Systems: Not applicable
Constitutional: Reports no symptoms
EENT: Reports no symptoms
Respiratory: Reports cough and trouble breathing
Cardiac: Reports chest pain
Phy Exam
Physical Exam
Physical Exam:
Physical Exam
General: Severe respiratory distress, on BiPAP
Neck: supple. no meningeal signs. normal posterior pharynx
Heart: s1/s2 tachycardia equal radial
pulses.
HEENT: Pupils equal round reactive to light, EOMI
Lungs: Severe respiratory distress. Rales bilaterally
Abdomen: normal bowel sounds. not tender. no CVAT
Neuro: alert and oriented. no focal neurological deficits cranial nerves II through XII intact
Skin: no rash
Psychiatric: well kept. interactive and cooperative
Extremities: Bilateral tibial edema. no calf tenderness. negative homans. good distal pulses
Scores
Heart Failure Risk
Heart Failure Risk Score: Yes
History of Stroke or TIA: No
History of intubation for respiratory distress: No
Heart rate on ED arrival >/= 110: Yes
SaO2 <90% on arrival on room air: Yes
HR >/=110 during 3min walk test (or too ill to perform test): Yes
ECG has acute ischemic changes: No
Urea >/=12mmol/L (BUN 33.6mg/dL): No
Serum CO2>/=35mmol/L: No
Troponin I or T elevated to AL Level (0.4mg/dL): No
NT-proBNP >/=5,000ng/L (5,000pg/ml): Yes
HF Risk Score: 4
Admission Status: HIGH RISK 26.1% Consider SNF treatment or admission to hospital
Course
Orders/Labs/Results
Orders:
Orders
12/31/23 05:54
Electrocardiogram (*1) Urgent
Reason for Study: Other
Other Reason for Exam: Respiratory Distress
Cardiac Monitoring- Treatment ONCE
EKG- Treatment ONCE
IV Insert/Care/Rem.- Treatment PRN
O2 Therapy [RESP] Urgent
Titrate/Wean O2 to maintain O2 sat greater than (%): 93
Special Instructions: TO MAINTAIN CONTINUOUS O2 SATS >/= 93%
Pulse Ox/cont/shift [RESP] Urgent
Quantity: 1
Special Instructions: continuous pulse ox
12/31/23 05:55
CR Chest Portable - 1 View Urgent
Comment:
Reason For Exam: respiratory distress
Reason Study Needs to be Portable: Patient Unstable
12/31/23 06:04
Complete Blood Count/With Diff Urgent
Comprehensive Metabolic Panel Urgent
NT-proBNP Urgent
Troponin I Urgent
12/31/23 06:07
Nitroglycerin 100 mg/250 ml [Nitroglycerin Premix] 100 mg in 250 ml IV NOW
Initial dose in mcg/min, then titrate:: 20
Titrate to keep:: SBP < 160 mmHg
Titrate by mcg/min:: 5 mcg/min, may increase by 10 mcg/min if dose > 20 mcg/min
Frequency of titrations (minutes):: every 3-5 minutes
Maximum dose in mcg/min:: 200
Begin to taper infusion when:: Remained at goal for 2hrs
Taper by mcg/min:: 5 mcg/min
Frequency of taper (minutes) if patient maintains goal:: 30
Taper to off?: Yes
If infusion off & no longer maintaining goal:: Contact Provider
12/31/23 06:47
Furosemide [Lasix] 40 mg IV NOW STA
12/31/23 06:51
Aspirin 300 mg RECTAL NOW STA
12/31/23 09:15
Admit/Transfer Patient As Directed
Co-Sign Provider:
Level of Care: Inpatient admission
Assign to:: ICU
Physician / Group: Dr Foreman
Diagnosis: Respiratory failure
Reason for Hospitalization: pte p/w sob and resp failure
Expected length of stay greater than two midnights?: Yes
ELOS- Estimated Length of Stay in days: 2
I certify the patient meets the requirements for IP care: Yes
PRN Pain Medication Management As Directed
May give lesser potent ordered pain med per pt: Yes
preference::
Protocol:: Medication orders for pain may be administered in a
manner that supports deferring to patient preference
when the pt is:
- Requesting an ordered lesser potent pain medication.
Least to most potent pain medications are defined
as: acetaminophen < NSAID < tramadol < opioids
(morphine, oxycodone, hydromorphone).
- Requesting a lesser dose of the same medication IF
ORDERED.
- Requesting a less intrusive route of administration
if both routes are prescribed by the provider (PO <
IV).
12/31/23 09:16
Code Status As Directed
Resuscitation Status: Full Code
12/31/23 09:22
CARDIOLOGY CONSULT Routine
Consulting Provider: Wilver Ware
Was physician already notified: Yes
Reason for consult: Elevated trop/ CHF
INFECTIOUS DISEASE CONSULT Routine
Consulting Provider: Rachna Gaona
Was physician already notified: Yes
Reason for consult: Sepsis/ recent bacteremia
12/31/23 09:23
Dextrose 50%-Water [Dextrose 50% Syringe] 12.5 grams IV [id number] PRN
Glucagon [GlucaGen] 1 mg IM PRN PRN
Bedside Glucose Monitoring As Directed
Frequency: AC&HS
Additional Instructions:: Change to q6h if pt on TPN, tube feeding or not eating
12/31/23 09:37
Blood Culture Routine
FELIPE Source: Blood/Venous
Specimen Description:
Blood Culture Urgent
FELIPE Source: Blood/Venous
Specimen Description:
12/31/23 10:00
Ampicillin 2,000 mg 0.9% Sodium Chloride 100 ml [Nss] 100 ml IV Q4H
CefTRIAXone [Rocephin] 2,000 mg IV Q12H
12/31/23 10:29
Bisacodyl [Dulcolax] 10 mg RECTAL [id number] PRN
Docusate W/Senna [Senokot-S] 1 tablet PO BIDPRN PRN
Polyethylene Glycol Powder [Miralax] 17 grams PO DAILYPRN PRN
12/31/23 10:29
Activity As Directed
Activity Level: Out of Bed-Early Mobility
Pneumatic Compression Sleeves As Directed
Type: Knee high
Vital Signs As Directed
Frequency: Per unit guidelines
DX Deep Vein Thrombosis Video Routine
12/31/23 11:30
Insulin Aspart Corrective Mod [Novolog Flexpen-Moderate Resistance] See Protocol SC AC
12/31/23 16:00
Furosemide [Lasix] 40 mg IV BID AT 0800,1600
01/01/24 06:00
Basic Metabolic Panel IN AM
Complete Blood Count/With Diff IN AM
Abnormal Lab Results
12/31/23 12/31/23
06:02 06:04
RBC 4.03 L 10^6/uL
(4.70-6.10)
Hgb 12.5 L g/dL
(13.0-18.0)
Hct 36.7 L %
(39.0-52.0)
RDW 14.8 H %
(11.5-14.5)
MPV 11.5 H fL
(7.4-10.4)
Abs Immat Gran (auto) 0.2 H 10^3/uL
(0-0.05)
Absolute Monos (auto) 1.1 H 10^3/uL
(0.1-0.6)
Immature Gran % 2.7 H %
(0-0.5)
Monocytes % 15.0 H %
(1.7-9.3)
Glucose 279 H mg/dl
(70-99)
AST 61 H U/L
(17-59)
ALT 56 H U/L
(0-50)
Alkaline Phosphatase 164 H U/L
(38-126)
Troponin I 0.284 H* ng/ml
POC Glucose 237 H mg/dl
(70-99)
12/31/23 06:04
12/31/23 06:04
Vital Signs
Initial and Last Documented VS:
Initial Vital Signs
Pulse Resp
121 32
12/31/23 05:54 12/31/23 05:54
Last Documented Vital Signs
Temp Pulse Resp BP Pulse Ox
97.5 F 76 19 124/58 100
12/31/23 06:00 12/31/23 10:00 12/31/23 10:00 12/31/23 10:00 12/31/23 10:00
MDM/Problems Addressed
Differential Diagnosis Includes:
Pneumonia, CHF, PE
MDM/Problems Addressed:
83-year-old male with CHF exacerbation, respiratory failure improved after BiPAP, nitroglycerin drip.
Chronic conditions affecting care: HTN, CAD, COPD and Other (Aortic stenosis)
Acute Exacerbation and/or Progression of Chronic Illness: HTN, CAD, COPD and Other (Aortic stenosis)
*Radiology
Radiology exam reviewed: preliminary read by ED provider (Chest x-ray shows bilateral pulmonary edema)
*Pulse Oximetry
Patient hypoxic: yes
*EKG
Interpreted by ED Provider?: Yes
EKG Intrepretation Date: 12/31/23
EKG Intrepretation Time: 05:55
Interpretation: abnormal
Comparison EKG: changes noted
Heart Rate: 122
Rate: tachycardiac
Rhythm: sinus tachycardia
Hansen: normal axis
Interval: normal interval
QRS Pattern: left bundle branch block
Ischemia: no ischemia
*Bpo Specialist Interpretation
Rate: tachycardiac
Interpretation: abnormal
Heart Rate: 75
Rhythm: sinus tachycardia
*Critical Care Note
Total Time (30-74mins, 75-104mins- exclusive of procedures): 30
comment:
Critical care statement: A total of 30 minutes of critical care time was provided for this patient. This includes management of unstable vital signs, evaluation of the patient at bedside, reviewing the patient's pertinent medical records, discussion
with consultants, review of old EKGs and review of pertinent medical records. This time with separate from time utilized to perform the aforementioned documented procedures
Data Reviewed
Review of Other/Old Records Reveals: Records (Recent discharge for MODESTA and sepsis. Discharged 12/30/2023)
Source: records
Patient Management
Social determinants of health affecting care: Living situation
Discussion with other providers: Hospitalist
Escalation/DeEscalation of care consider admission/obs:
Admit indicated
ED Attending Note
-
Portions of this chart may have been created with voice recognition software.� Occasional wrong word or��sound alike� substitutions may have occurred due to the inherent limitations of voice recognition software.
Discharge Plan
Departure
Patient Disposition: Admit
Date of Disposition: 12/31/23
Time of Disposition: 06:46
Admit to: ICU
Presentation/result/management discussed w/ accepting MD/DO: Hospitalist
Patient with high blood pressure during this ER visit?: Yes
Condition: Serious
Discharge Problem:
Acute exacerbation of CHF (congestive heart failure)
Interventions
Interventions:
*General Assessment Last Done: 12/31/23 06:11
ED- Fall Risk Assessment Last Done: 12/31/23 06:05
*ED COVID-19 Vaccine History Last Done: 12/31/23 06:11
ED- Cardiac Assessment Last Done: 12/31/23 06:05
ED- Pulmonary Assessment Last Done: 12/31/23 07:54
[2023-12-31 06:03] LABS: Glucose - Point of Care 237 mg/dl (70-99)
[2023-12-31] MEDS: NITROGLYCERIN PREMIX 250 IV (06:18)
[2023-12-31 06:22] LABS: % Basophils 0.9 % (0-2); % Eosinophils 5.3 % (0-6); % Immature Granulocytes 2.7 % (0-0.5); % Lymphocytes 33.9 % (20.5-51.1); % Neutrophils 42.2 % (42.2-75.2); Absolute Basophils 0.1 10^3/uL (0-0.2); Absolute Eosinophils 0.4 10^3/uL (0-0.7); Absolute Immature Granulocytes 0.2 10^3/uL (0-0.05); Absolute Lymphocytes 2.4 10^3/uL (1.2-3.4); Absolute Monocytes 1.1 10^3/uL (0.1-0.6); Hematocrit 36.7 % (39.0-52.0); Hemoglobin 12.5 g/dL (13.0-18.0); Mean Corp Hgb Conc. 34.1 g/dL (33.0-37.0); Mean Corpuscular Volume 91.1 fL (80.0-94.0); Mean Platelet Volume 11.5 fL (7.4-10.4); Nucleated Red Blood Cells % 0.3 % (-); Platelet Count 145 10^3/uL (130-400); Red Blood Cell Count 4.03 10^6/uL (4.70-6.10); Red Cell Dist. Width 14.8 % (11.5-14.5)
[2023-12-31 06:26] LABS: ALT (SGPT) 56 U/L (0-50); AST (SGOT) 61 U/L (17-59); Albumin 3.8 g/dl (3.5-5.0); Alkaline Phosphatase 164 U/L (38-126); Blood Urea Nitrogen 9 mg/dl (9-20); Carbon Dioxide 29 mmol/L (22-30); Chloride 101 mmol/L (98-107); Glucose 279 mg/dl (70-99); Potassium 4.2 mmol/L (3.5-5.1); Sodium 135 mmol/L (135-145); Total Bilirubin 0.8 mg/dl (0.2-1.3); Total Protein 7.2 g/dl (6.3-8.2); eGFR > 60.00
[2023-12-31 06:41] LABS: NT-proBNP 7870 pg/ml; Troponin I 0.284 ng/ml
[2023-12-31] MEDS: LASIX 40 MG IV ×2 (07:00→16:05)
[2023-12-31] MEDS: ASPIRIN 300 MG RECTAL (07:00)
--- NOTE | 2023-12-31 07:58 | PHANOTE ---
med rec note- patient unable to answer question at this time, spouse chely carvajalkatarina help patient with his medication. unable to find discharge summary to explain which medication patient should continue or stop. discharge packet only file from yesterday
just nothing explain which are new medication. patient actively not filing Toprol xl 25mg daily. not sure if this was new on discharge yesterday 12/30/23 as per ecw Toprol was stopped
--- NOTE | 2023-12-31 09:19 | HPS.HSE ---
Family Physician
-
Family Physician: Marquis West
Chief Complaint
-
sob
History of Present Illness
Patient 83 years old male with history of CAD, TAVR, CHF, diabetes mellitus, COPD, chronic left bundle branch block, recent admission for enterococcal bacteremia was just discharged from the hospital yesterday and came back today with respiratory
distress. Patient states that he was doing well after discharge yesterday and went to sleep without any difficulties but this morning he woke up having shortness of breath associated with chest pain midsternum no radiation brought up when he was
walking to the bathroom associated with shortness of breath that has been progressively getting worse throughout the day and decided to call 911 and came to the hospital. He denies fevers or chills nausea vomiting or diarrhea. In the ER, chest
x-ray evidence of heart failure and BNP 7870, troponin 0.284, he was placed on BiPAP immediately and on a nitro drip. He was referred to hospitalist for further evaluation.
Medical History
Past Medical History
Past Medical History: Reports Other
Additional Past Medical History:
COPD
Essential hypertension
Hyperlipidemia
DM2
CAD
Aortic stenosis
Peripheral neuropathy
Esophageal stricture
Recent bacteremia
CHF
Past Surgical History: Reports Other
Additional Past Surgical History:
TAVR�2022
Bilateral total knee arthroplasty
Social History
Tobacco: Former Smoker
Alcohol: Occasional
Drug: None
Personal:
Living: With Family
Family History
Family History: Not pertinent
Allergies / Home Medications
Allergies reflects when Allergies were last updated in [employer].
Home Medications with original date entered in [employer]
Allergy/Medication List:
Allergies
Allergy/AdvReac Type Severity Reaction Status Date / Time
atorvastatin Allergy LEG CRAMPS Verified 12/31/23 05:54
lisinopril Allergy severe Verified 12/31/23 05:54
cough
prednisone Allergy Swelling Verified 12/31/23 05:54
rosiglitazone [From Avandia] Allergy Edema Verified 12/31/23 05:54
Home Medications
ascorbic acid (vitamin C) 500 mg tablet (Vitamin C) 1,000 mg PO DAILY Supplement 12/24/23
cyanocobalamin (vitamin B-12) 1,000 mcg tablet 1,000 mcg PO DAILY Supplement 12/24/23
dulaglutide 0.75 mg/0.5 mL subcutaneous pen injector (Trulicity) 0.75 mg SC FR Diabetes 12/24/23
ezetimibe 10 mg tablet (Zetia) 10 mg PO DAILY High Cholesterol 12/24/23
furosemide 20 mg tablet (Lasix) 20 mg PO MOWEFR Fluid Retention/Swelling 12/24/23
garlic 400 mg tablet,delayed release 400 mg PO DAILY Supplement 12/24/23
glipizide 5 mg tablet 5 mg PO DAILY Diabetes 12/24/23
isosorbide mononitrate 60 mg tablet,extended release 24 hr 60 mg PO DAILY Heart Disease/Condition 12/24/23
losartan 25 mg tablet 25 mg PO DAILY Blood Pressure 12/24/23
magnesium oxide 200 mg PO DAILY Supplement 12/24/23
pantoprazole 40 mg tablet,delayed release (Protonix) 40 mg PO DAILY GERD 12/24/23
potassium 99 mg tablet 99 mg PO DAILY Supplement 12/24/23
pyridoxine (vitamin B6) 50 mg tablet 50 mg PO DAILY Supplement 12/24/23
rosuvastatin 5 mg tablet 5 mg PO MOWEFR High Cholesterol 12/24/23
therapeutic multivitamin 1 tab PO DAILY Supplement 12/24/23
amoxicillin 500 mg capsule 1,000 mg PO Q8H bacteremia 12/31/23
aspirin 81 mg capsule 81 mg PO DAILY Blood Pressure 12/31/23
oxycodone-acetaminophen 10 mg-325 mg tablet 1 tab PO Q6HPRN PRN severe pains 12/31/23
Review of Systems
-
A 12 point ROS was completed and negative except as noted: Yes
Physical Exam
Vital Signs
Vital Signs
Temp Pulse Resp BP Pulse Ox
97.5 F 80 20 127/53 99
12/31/23 06:00 12/31/23 09:05 12/31/23 09:05 12/31/23 09:05 12/31/23 09:05
Physical exam:
General: Acutely ill
HEENT: Normocephalic, Atraumatic and Moist Mucous Membranes
Respiratory: Coarse crackles bilateral; Negative Wheezes or Rhonchi
Cardiac: Regular Rhythm and S1/S2
GI: Soft, Nontender and Nondistended
Musculoskeletal: Bilateral lower extremity edema. No Clubbing, No Cyanosis
Neuro: Awake, Alert and Oriented
Psych: Calm
Physical Exam
General: Other
Laboratory Results
-
12/31/23 06:04
12/31/23 06:04
Laboratory Results
Total Bilirubin 0.8 mg/dl (0.2-1.3) 12/31/23 06:04
AST 61 U/L (17-59) H 12/31/23 06:04
ALT 56 U/L (0-50) H 12/31/23 06:04
Alkaline Phosphatase 164 U/L (38-126) H 12/31/23 06:04
Troponin I 0.284 ng/ml H* 12/31/23 06:04
Impression/Plan
-
IMPRESSION:
Patient 83 years old male with multiple comorbidities and recently treated in the hospital for enterococcal bacteremia and readmitted today with acute hypoxic respiratory failure, chest pain, and elevated troponin. Patient at increased risk
morbidity mortality due to his acute presentation and complexity of his comorbidities therefore he will need to be treated in the hospital and managed accordingly.
PLAN:
Acute hypoxic respiratory failure:
Likely due to heart failure
IV diuretics
BiPAP--> change to oxygen supplementation
Seen and reviewed chest x-ray
Acute on chronic systolic congestive heart failure:
IV diuretics, Lasix 40 mg IV twice a day
On IV nitro but discontinue and monitor-restart long-acting nitrates
On BiPAP but discontinue and placed on oxygen and titrate as able to wean
Cardiology consult
BNP upon admission 7870
Monitor strict I/O
Monitor daily weight
Monitor renal function and electrolytes
Reviewed latest echocardiogram on our system
Continue guideline-directed medical therapy for heart failure (GDMT)
Fluid restriction
Salt restriction
Heart failure education
Follow up clinical response
Recent sepsis due to enterococcal bacteremia:
I was going to start him back on IV Rocephin and ampicillin. Requested ID consult in the recommend IV daptomycin
Repeat blood cultures
Follow-up infectious parameters
Elevated troponin and chest pain:
Consideration for cardiac catheterization per cardiology
Trend troponin
Cardiac monitoring
Aortic stenosis status post TAVR:
Cardiology eval
CAD:
Continue anti-ischemic regimen
s/p 2.5 mm Promus to distal LAD and 2.25 mm Promus EMERITA to mid RCA 01/07/19, patent by cath 03/16/22
Hypertension:
Continue home antihypertensives.
Monitor blood pressure and adjust medications accordingly.
COPD:
No evidence of exacerbation
Hold off on systemic steroids
Diabetes mellitus type 2:
Diabetic diet
Will check blood sugars before meals and at bedtime
Will add insulin sliding scale
Will monitor blood sugar and adjust medications accordingly
Pancytopenia:
Recent pancytopenia noted but blood cell count appears stable today so we will follow-up trend
DVT prophylaxis:
SCDs
Might add pharmacological prophylaxis tomorrow if hemoglobin and platelets stable
CODE STATUS:
DNR
Time spent 75 minutes
--- NOTE | 2023-12-31 09:45 | CON.ID ---
Consultation
-
Date/Time Consultation Requested: December 31, 2023 0922
Date/Time Consultation Performed: December 31, 2019 0930
Requesting Provider: Dr. Obed Foreman
Performing Provider: Dr. Rachna Gaona
Reason for Consultation: Readmitted now with CHF
Chief Complaint / Past History
Chief Complaint
Cough/SOB
History of Present Illness
83-year-old male with diabetes mellitus, COPD, TAVR, CAD status post stent, chronic thrombocytopenia known to me who was recently hospitalized from December 23 to December 29 with 1-1/2 weeks of fever and chills due to Enterococcus faecalis bacteremia of
unclear source. CT of the abdomen pelvis was unremarkable. ZARIA showed reduced EF to 40%, small PFO, no vegetation seen. My recommendation was to discharge home on IV ampicillin but patient refused IV antibiotic. He was therefore discharged
yesterday on oral amoxicillin. Per he was doing fine after discharge. However overnight he developed shortness of breath, nonproductive cough. No fevers or chills. No diarrhea. Has lower extremity edema. CXR now shows pulmonary edema and
new RML 2.1 cm nodule. BNP 7870.
Past History
Additional Past Medical History:
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
s/p TAVR (2021)
CAD s/p stent
Ischemic cardiomyopathy
COPD
Chronic thrombocytopenia
Hypertension
Dyslipidemia
Nephrolithiasis
Andre's esophagus/stricture
Obstructive sleep apnea
Arthritis
AAA
C3-7 discectomy/laminectomy with screws
Jaw implant bilateral
B TKA
Allergy History:
atorvastatin Allergy (Verified 12/31/23 05:54)
LEG CRAMPS
lisinopril Allergy (Verified 12/31/23 05:54)
severe cough
prednisone Allergy (Verified 12/31/23 05:54)
Swelling
rosiglitazone [From Avandia] Allergy (Verified 12/31/23 05:54)
Edema
Medications Reviewed: Yes
Current Antibiotics:
Ampicillin IV
ceftriaxone
Social History
Tobacco: Non-Smoker
Alcohol: Occasional
Drug: None
Personal:
Living: With Family
Family History
Family History: Not Pertinent
Review of Systems
Review of Systems
General: Negative Fever or Chills
HEENT: Negative Stiff Neck, Sinus Problems or Headache
Cardiovascular: Chest Pain, Dyspnea and Edema
Respiratory: Dyspnea and Cough
Gasteroenterology: Other (no diarrhea); Negative Nausea or Vomiting
Genital / Urological: Negative Dysuria or Flank Pain
Endocrine: Negative Weakness
Skin / Hair / Nails: Negative Urticaria or Rash
Neurological: Negative Dizziness
All systems: All other systems were reviewed and were negative
Vital Signs
Temp Pulse Resp BP Pulse Ox
97.5 F 75 19 104/44 99
12/31/23 06:00 12/31/23 09:30 12/31/23 09:30 12/31/23 09:30 12/31/23 09:30
Physical Exam
Physical Exam
Constitutional: Acutely Ill
Head: Other (No frontal or maxillary sinus tenderness)
Eyes: No Conjunctival Hemorrhage and Sclera Anicteric
Cardiovascular: Regular Rate and S1/S2
Pulmonary: Rales (bases) and Other (Coughing)
Gastrointestinal: Soft, Non Tender and Non Distended
Genito-Urinary: Negative CVA Tenderness
Extremities: Edema (1+ BLE)
Musculoskeletal: Joint Effusion (bialteral knees); Negative Joint Swelling (bilateral knees) or Spinal Tenderness
Neurological: AO x 3
Lab / Diagnostic Study Results
12/31/23 06:04
12/31/23 06:04
Abs Immat Gran (auto) 0.2 10^3/uL (0-0.05) H 12/31/23 06:04
Absolute Neuts (auto) 3.0 10^3/uL (1.4-6.5) 12/31/23 06:04
Absolute Lymphs (auto) 2.4 10^3/uL (1.2-3.4) 12/31/23 06:04
Absolute Monos (auto) 1.1 10^3/uL (0.1-0.6) H 12/31/23 06:04
Absolute Basos (auto) 0.1 10^3/uL (0-0.2) 12/31/23 06:04
Immature Gran % 2.7 % (0-0.5) H 12/31/23 06:04
Neutrophils % 42.2 % (42.2-75.2) 12/31/23 06:04
Lymphocytes % 33.9 % (20.5-51.1) 12/31/23 06:04
Monocytes % 15.0 % (1.7-9.3) H 12/31/23 06:04
Eosinophils % 5.3 % (0-6) 12/31/23 06:04
Basophils % 0.9 % (0-2) 12/31/23 06:04
Microbiology Results
12/31/23 CXR: Pulmonary edema with small right greater than left pleural effusions. Interval development of a 2.1 cm nodule in the right midlung which was not visualized on the chest radiograph from 12/24/2023. Given the short interval duration between
the 2 radiographs, this may be artifactual and related to a structure external to the patient, however new lung nodule is a possibility. Consider short-term repeat chest radiographs, and if still present, CT of the chest may be warranted at that
time.
Assessment / Plan
# Recent Enterococcus faecalis bacteremia (12/23, 12/24)
- Unclear source. ZARIA: small PFO, no vegetation; CT a/p unremarkable
- Received 5d IV amp/ceftriaxone inpatient. Pt refused outpt IV -> dc'd on amoxicillin (took 1 dose at home prior to readmission)
# Acute on chronic CHF/pulm edema
# New RML lung nodule by CXR
# hx TAVR
- Consider chest CT to assess for ?septic pulm emboli
- May need repeat TTE
- In the meantime, will continue Enterococcus bacteremia treatment with Daptomycin instead of ampicillin to reduce volume in setting of acute CHF.
Check CK.
[2023-12-31 11:23] LABS: CKMB 2.8 ng/ml (0.0-2.4)
--- NOTE | 2023-12-31 11:30 | PTCARENOTE ---
Received pt from ED via stretcher.Pt is awake and alert.Speech is appropriate.Denies pain +5/5 LYONS noted.SR noted.Decreased breath sounds throughout.POX 97% 4l NC O2.No SOB note.Occasional productive cough.Expectorating small amount thick galan
sputum.No BM.Voiding yellow urine in urinal.Skin integrity as documented.Plan of care discussed with pt and his .
[2023-12-31 12:04] LABS: Glucose - Point of Care 175 mg/dl (70-99)
[2023-12-31] MEDS: NOVOLOG FLEXPEN-MODERATE RESISTANCE 1 UNITS SC (12:19)
[2023-12-31] MEDS: IMDUR (EXTENDED RELEASE) 60 MG PO (12:20)
[2023-12-31] MEDS: PROTONIX 40 MG PO (12:20)
[2023-12-31] MEDS: ZETIA 10 MG PO (12:21)
[2023-12-31] MEDS: VITAMIN B-6 50 MG PO (12:21)
--- NOTE | 2023-12-31 12:30 | PTCARENOTE ---
Voided 50 ml.Pt feels as if he has not emptied his bladder completely.Bladder scan 918 ml.Straight cath 850 ml.
--- NOTE | 2023-12-31 12:39 | CON.CAR ---
Addendum entered and electronically signed by Wilver Ware DO 12/31/23 16:09:
I saw and examined the patient.
The Granulating Blender's note was reviewed and I agree with the note.
Comment:
Plan:
Improved with IV diuresis
Off IV nitro and biPAP
Trend troponin until peaks.
Wean O2 as able
By recent echo no endocarditis but EF has dropped. With mild troponin elevation, cp and HF and now drop in EF discussed consideration for cath to eval coronary anatomy once more compensated with regards to HF.
He will consider. He has hx of noncompliance with recommendations.
Cont Losartan, Imdur, statin and Zetia and ASA. beta jayde stopped previously due to bradycardia on outpt monitor.
Discussed with nursing
Original Note:
Consultation
Consultation Request
Date/Time Consultation Performed: 12/31/23
Requesting Provider: Dr. Foreman
Performing Provider: Martha Whittington PA-C for Dr. Ware
Reason for Consultation: CHF
Medical History
-
History of Present Illness:
Patient with CAD status post LAD and RCA PCI, history of TAVR in 2021, type 2 diabetes, chronic left bundle branch block, COPD with recent admission 12/23 - 12/28 for enterococcal bacteremia. He underwent echocardiogram which showed newly reduced EF
at 40% compared to prior, but fortunately ZARIA was without evidence of endocarditis. He was discharged to home however then states he had chest discomfort with ambulation such as with walking into the bathroom. Hypoxic on arrival. proBNP 7870 and CXR
with evidence of CHF. reports fevers/rigors have resolved. cardiology consulted for evaluation.
PMH:
admission for enterococcal bacteremia 12/23-12/29/23
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
mean gradient 18 mmHg by echo 04/19/23 and increased to 30 mmHg by echo 12/25/23
Recent outpatient treatment for suspected ureteral stone 12/18/23
Recent foot wound managed by outpatient php magento developer 08/2023
CAD s/p 2.5 mm Promus to distal LAD and 2.25 mm Promus EMERITA to mid RCA 01/07/19, patent by cath 03/16/22
DM 2
cLBBB
HTN
Chronic thrombocytopenia
COPD
Past Medical History
Past Medical History: Other (in HPI)
Past Surgical History: Cardiac (TAVR 04/19/22, PCI), Orthopedic (discectomy, laminectomy, ), Tonsilectomy and Other (bone implant in jaw)
Social History
Tobacco: Former Smoker
Alcohol: Occasional (one to two drinks 2-4 times a month)
Drug: None
Personal:
Living: With Family
Family History
Family History: CAD and Cancer
Allergies / Home Medications
Allergy/AdvReac Type Severity Reaction Status Date / Time
atorvastatin Allergy LEG CRAMPS Verified 12/31/23 05:54
lisinopril Allergy severe Verified 12/31/23 05:54
cough
prednisone Allergy Swelling Verified 12/31/23 05:54
rosiglitazone [From Avandia] Allergy Edema Verified 12/31/23 05:54
�Medication �Instructions �Recorded �Confirmed �Type
ascorbic acid (vitamin C) 500 mg 1,000 mg PO DAILY Supplement 12/24/23 12/31/23 History
tablet (Vitamin C)
cyanocobalamin (vitamin B-12) 1,000 mcg PO DAILY Supplement 12/24/23 12/31/23 History
1,000 mcg tablet
dulaglutide 0.75 mg/0.5 mL 0.75 mg SC FR Diabetes 12/24/23 12/31/23 History
subcutaneous pen injector
(Trulicity)
ezetimibe 10 mg tablet (Zetia) 10 mg PO DAILY High Cholesterol 12/24/23 12/31/23 History
furosemide 20 mg tablet (Lasix) 20 mg PO MOWEFR Fluid 12/24/23 12/31/23 History
Retention/Swelling
garlic 400 mg tablet,delayed 400 mg PO DAILY Supplement 12/24/23 12/31/23 History
release
glipizide 5 mg tablet 5 mg PO DAILY Diabetes 12/24/23 12/31/23 History
isosorbide mononitrate 60 mg 60 mg PO DAILY Heart 12/24/23 12/31/23 History
tablet,extended release 24 hr Disease/Condition
losartan 25 mg tablet 25 mg PO DAILY Blood Pressure 12/24/23 12/31/23 History
magnesium oxide 200 mg PO DAILY Supplement 12/24/23 12/31/23 History
pantoprazole 40 mg tablet,delayed 40 mg PO DAILY GERD 12/24/23 12/31/23 History
release (Protonix)
potassium 99 mg tablet 99 mg PO DAILY Supplement 12/24/23 12/31/23 History
pyridoxine (vitamin B6) 50 mg 50 mg PO DAILY Supplement 12/24/23 12/31/23 History
tablet
rosuvastatin 5 mg tablet 5 mg PO MOWEFR High Cholesterol 12/24/23 12/31/23 History
therapeutic multivitamin 1 tab PO DAILY Supplement 12/24/23 12/31/23 History
amoxicillin 500 mg capsule 1,000 mg PO Q8H bacteremia 12/31/23 12/31/23 History
aspirin 81 mg capsule 81 mg PO DAILY Blood Pressure 12/31/23 12/31/23 History
oxycodone-acetaminophen 10 mg-325 1 tab PO Q6HPRN PRN severe pains 12/31/23 12/31/23 History
mg tablet
Review of Systems
-
History Source: Patient
All other systems: Negative unless noted
Physical Exam
Vital Signs
Temp Pulse Resp BP Pulse Ox
98.2 F 77 23 135/63 94
12/31/23 11:45 12/31/23 11:00 12/31/23 11:00 12/31/23 11:00 12/31/23 11:00
Lab Results
12/31/23 06:04
12/31/23 06:04
Troponin I 0.284 ng/ml H* 12/31/23 06:04
Onr-G-[id number] Pept 7870 pg/ml 12/31/23 06:04
Physical Exam
General: No Apparent Distress, Comfortable and Other (on supp O2)
HEENT: Normocephalic, Anicteric and Moist Mucous Membranes
Respiratory: Crackles (at bases) and Non Labored Respirations
Cardiac: S1/S2 and Regular Rhythm
GI: Soft, Non Tender, Non Distended and Normal Bowel Sounds
Musculoskeletal: No Clubbing, No Cyanosis and Edema (2+ of B/L LE)
Skin: Warm and Dry
Neuro: AO x 3
Impression / Plan
-
PCP: Dr. West
Cardiology: Dr. Maureen Escamilla
Impression:
Presentation with chest pain/SOB
Acute HFrEF
Elevated troponin
Elevated LFTs, improving
Anemia
Possible R lung nodule by CXR 12/30/23
admission for enterococcal bacteremia 12/23-12/29/23
Cardiomyopathy, EF 40% by echo 12/24
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
mean gradient 18 mmHg by echo 04/19/23 and increased to 30 mmHg by echo 12/25/23
Worsened CM EF 45% by echo 05/23/22, EF 40% by echo 12/25/23
MODESTA
Recent outpatient treatment for suspected ureteral stone 12/18/23
Recent foot wound managed by outpatient php magento developer 08/2023
CAD s/p 2.5 mm Promus to distal LAD and 2.25 mm Promus EMERITA to mid RCA 01/07/19, patent by cath 03/16/22
DM 2
cLBBB
HTN
Chronic thrombocytopenia
COPD
Echo 05/23/22: EF 45 to 50%, moderate LVH, status post TAVR with peak/mean 30/15 mmHg
Echo 04/19/23: EF 50 to 55%, moderate concentric LVH, status post TAVR with peak/mean 33/18 mmHg
Echo 12/25/23: EF 40%, status post TAVR with peak/mean 47/30 mmHg, no aortic regurgitation seen, mild TR with PAP 35 mmHg, no definitive intracardiac mass noted
ZARIA 12/27/2023: EF 40%, global diffuse hypokinesis, status post TAVR with peak/mean gradients 31/18 mmHg, no significant AI, small PFO, no obvious vegetation appreciated
Plan:
-Patient with recent admission for enterococcal bacteremia, now presents back with chest discomfort and acute CHF
-Continue IV Lasix. Creatinine stable. was on po lasix 20mg MWF as OP
-Wean supplemental oxygen as able
-By echo 12/24 and ZARIA 12/26 no evidence of endocarditis however did show new reduction in EF compared to prior to 40%.
-Troponin 0.284. Trend to peak. Presently without chest discomfort. By last cath in 2021, LAD and RCA stents were patent. likely needs ischemic evaluation prior to discharge
-Metoprolol was stopped in the past due to bradycardia on outpatient monitor. Continue losartan, Imdur, aspirin, Crestor, Zetia
-Will look into cost of SGLT2 inhibitor. consider addition of spironolactone. Of note patient has history of MODESTA in the past
-d/w nursing
Data Reviewed
-
EKG: Tracing Personally Visualized and interpreted
Radiology: Report Reviewed by me
Medical Tests (Nuc Med, Echo etc): Report Reviewed by me
Labs: Labs Reviewed by me
Old Records: Reviewed
[2023-12-31 13:25] LABS: Creatine Phosphokinase 108 U/L (55-170)
[2023-12-31] MEDS: CUBICIN 20 MG IV (15:19)
--- NOTE | 2023-12-31 16:40 | PTCARENOTE ---
Pt assessed.No change in assessment noted.Voided 250 ml.Bladder scanned 425 ml.Straight cath 475 ml.
[2023-12-31 17:24] LABS: Glucose - Point of Care 230 mg/dl (70-99)
[2023-12-31] MEDS: NOVOLOG FLEXPEN-MODERATE RESISTANCE 3 UNITS SC (18:24)
--- NOTE | 2023-12-31 22:40 | PTCARENOTE ---
on assessment pt AAOx3, denies pain, OOB to chair, assist x2, SR on the monitor, RA 90%, 2L NC was replaced and O2 was 97%, voided at 6pm, call morse in reach.
[2023-12-31 23:04] LABS: Glucose - Point of Care 230 mg/dl (70-99)
[2024-01-01] VITALS (12 sets, daily range): BP systolic 88–139; BP diastolic 45–58; BMI 31.2
[2024-01-01 04:40] LABS: % Basophils 0.7 % (0-2); % Eosinophils 4.2 % (0-6); % Immature Granulocytes 1.6 % (0-0.5); % Lymphocytes 24.5 % (20.5-51.1); % Monocytes 12.7 % (1.7-9.3); % Neutrophils 56.3 % (42.2-75.2); Absolute Eosinophils 0.1 10^3/uL (0-0.7); Absolute Immature Granulocytes 0.1 10^3/uL (0-0.05); Absolute Lymphocytes 0.8 10^3/uL (1.2-3.4); Absolute Monocytes 0.4 10^3/uL (0.1-0.6); Absolute Neutrophils 1.7 10^3/uL (1.4-6.5); Hematocrit 28.7 % (39.0-52.0); Hemoglobin 10.2 g/dL (13.0-18.0); Mean Corp Hgb Conc. 35.5 g/dL (33.0-37.0); Mean Corpuscular Hgb 32.4 pg (27.0-31.0); Mean Corpuscular Volume 91.1 fL (80.0-94.0); Mean Platelet Volume 11.1 fL (7.4-10.4); Nucleated Red Blood Cells % 0 % (-); Platelet Count 102 10^3/uL (130-400); Red Blood Cell Count 3.15 10^6/uL (4.70-6.10); Red Cell Dist. Width 14.6 % (11.5-14.5); White Blood Cell Count 3.1 10^3/uL (4.8-10.8)
[2024-01-01 04:55] LABS: ALT (SGPT) 42 U/L (0-50); AST (SGOT) 59 U/L (17-59); Alkaline Phosphatase 99 U/L (38-126); Blood Urea Nitrogen 13 mg/dl (9-20); Calcium 8.4 mg/dl (8.4-10.2); Carbon Dioxide 31 mmol/L (22-30); Chloride 101 mmol/L (98-107); Direct Bilirubin 0.4 mg/dl (0.0-0.4); Estimated Creatinine Clearance 77 ml/min; Glucose 177 mg/dl (70-99); Magnesium 1.9 mg/dl (1.6-2.3); Potassium 3.9 mmol/L (3.5-5.1); Sodium 135 mmol/L (135-145); Total Bilirubin 0.9 mg/dl (0.2-1.3); eGFR > 60.00
[2024-01-01 07:27] LABS: Glucose - Point of Care 153 mg/dl (70-99)
--- NOTE | 2024-01-01 08:50 | W.PN.CARDCBS ---
Addendum entered and electronically signed by Mathew Santana MD 01/01/24 14:54:
I saw and examined the patient.
The Gasket Inspector's note was reviewed and I agree with the note.
Comment: Briefly, 83-year-old man with past medical history of aortic stenosis status post TAVR, CAD with prior PCI and recent hospitalization for sepsis and bacteremia presenting in acute decompensated heart failure
Continue IV Lasix twice daily
Wean oxygen as able
Follow daily weights, renal function and electrolytes
Initial troponin was mildly elevated and continues to rise, would trend to peak
As he is currently chest pain-free and has a history of thrombocytopenia with platelet count of 47 this past week we will hold off on heparin drip at this time
Continue aspirin, statin and nitrate
Tentative left heart catheterization during this hospitalization
Original Note:
Today's Communication / Plan
-
continue IV lasix
wean supp O2
repeat trop
consider for ischemic evaluation prior to DC
consider for jardiance
Impression / Plan
-
PCP: Dr. West
Cardiology: Dr. Maureen Escamilla
Impression:
Presentation with chest pain/SOB
Acute HFrEF
Elevated troponin
Elevated LFTs, improving
Anemia
Possible R lung nodule by CXR 12/30/23
admission for enterococcal bacteremia 12/23-12/29/23
Cardiomyopathy, EF 40% by echo 12/24
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
mean gradient 18 mmHg by echo 04/19/23 and increased to 30 mmHg by echo 12/25/23
Worsened CM EF 45% by echo 05/23/22, EF 40% by echo 12/25/23
MODESTA
Recent outpatient treatment for suspected ureteral stone 12/18/23
Recent foot wound managed by outpatient technical program manager 08/2023
CAD s/p 2.5 mm Promus to distal LAD and 2.25 mm Promus EMERITA to mid RCA 01/07/19, patent by cath 03/16/22
DM 2
cLBBB
HTN
Chronic thrombocytopenia
COPD
Echo 05/23/22: EF 45 to 50%, moderate LVH, status post TAVR with peak/mean 30/15 mmHg
Echo 04/19/23: EF 50 to 55%, moderate concentric LVH, status post TAVR with peak/mean 33/18 mmHg
Echo 12/25/23: EF 40%, status post TAVR with peak/mean 47/30 mmHg, no aortic regurgitation seen, mild TR with PAP 35 mmHg, no definitive intracardiac mass noted
ZARIA 12/27/2023: EF 40%, global diffuse hypokinesis, status post TAVR with peak/mean gradients 31/18 mmHg, no significant AI, small PFO, no obvious vegetation appreciated
Plan:
-Patient with recent admission for enterococcal bacteremia, presented back with chest discomfort and acute CHF
-Continue IV Lasix. Creatinine stable. was on po lasix 20mg MWF as OP
-Wean supplemental oxygen as able
-LFTs normalized
-By echo 12/24 and ZARIA 12/26 no evidence of endocarditis however did show new reduction in EF compared to prior to 40%.
-Troponin 0.284. repeat this AM. Presently without chest discomfort. By last cath in 2021, LAD and RCA stents were patent. consider for ischemic evaluation prior to discharge
-follow hgb/plts, 10.2/102K on 12/31. he has history of chronic thrombocytopenia. would need to ensure he is candidate for DAPT prior to considering for cath
-Metoprolol was stopped in the past due to bradycardia on outpatient monitor. Continue losartan, Imdur, aspirin, Crestor, Zetia
-farxiga not covered by insurance however jardiance is, consider addition, however with recent bacteremia of unclear source. consider addition of spironolactone. Of note patient has history of MODESTA in the past
-d/w nursing
Progress Note - Presser Machine
Subjective
Date of Service: January 01, 2024
without chest discomfort. reports improvement in breathing
Objective
Labs:
01/01/24 04:06
01/01/24 04:06
Labs
Hgb 10.2 g/dL (13.0-18.0) L 01/01/24 04:06
Hct 28.7 % (39.0-52.0) L 01/01/24 04:06
Plt Count 102 10^3/uL (130-400) L D 01/01/24 04:06
Sodium 135 mmol/L (135-145) 01/01/24 04:06
Potassium 3.9 mmol/L (3.5-5.1) 01/01/24 04:06
BUN 13 mg/dl (9-20) 01/01/24 04:06
Creatinine 0.9 mg/dL (0.7-1.3) 01/01/24 04:06
Glucose 177 mg/dl (70-99) H 01/01/24 04:06
Troponins
12/31/23
06:04
Troponin I 0.284 H*
Vital Signs and I&O:
Vital Signs
Temp Pulse Resp BP Pulse Ox
97.6 F 86 22 122/54 97
01/01/24 07:12 01/01/24 06:45 01/01/24 06:45 01/01/24 06:00 01/01/24 06:30
Vital Signs
Temp Pulse Resp BP Pulse Ox
97.6 F 86 22 122/54 97
01/01/24 07:12 01/01/24 06:45 01/01/24 06:45 01/01/24 06:00 01/01/24 06:30
Intake & Output
12/30/23 12/31/23 01/01/24 01/02/24
07:59 07:59 07:59 07:59
Intake Total 790 / 790 240 / 240
Output Total 3190 / 3190
Balance -2400 / -2400 240 / 240
Physical Exam
Physical Exam
GEN: No distress, awake, alert, oriented x3. sitting in chair. on supp O2
HEENT: supple, anicteric, mmm, eomi
LUNGS: Decreased BS at bases, few crackles
CV: Reg, S1/S2, 2/6 murmur
ABD: soft, BS+, NT/ND
EXT: No cyanosis, clubbing. 2+ edema of B/L LE
NEURO: Gross non-focal
SKIN: Warm, pink, dry. No rash
[2024-01-01] MEDS: ASPIR LOW (ENTERIC COATED) 81 MG PO (09:04)
[2024-01-01] MEDS: VITAMIN B-6 50 MG PO (09:04)
[2024-01-01] MEDS: NOVOLOG FLEXPEN-MODERATE RESISTANCE 1 UNITS SC (09:04)
[2024-01-01] MEDS: COZAAR 25 MG PO (09:04)
[2024-01-01] MEDS: MAGNESIUM OXIDE 250 MG PO (09:05)
[2024-01-01] MEDS: ZETIA 10 MG PO (09:05)
[2024-01-01] MEDS: PROTONIX 40 MG PO (09:05)
[2024-01-01] MEDS: VITAMIN B-12 1000 MCG PO (09:05)
[2024-01-01] MEDS: IMDUR (EXTENDED RELEASE) 60 MG PO (09:06)
[2024-01-01] MEDS: LASIX 40 MG IV ×2 (09:06→15:59)
[2024-01-01] MEDS: CRESTOR 5 MG PO (09:08)
--- NOTE | 2024-01-01 09:09 | W.PN.HOSP.TC ---
Today's Communication/Plan
-
IV Lasix. Cardiology contemplating ischemic workup.
Assessment / Plan
Assessment / Plan
Physical exam:
General: Acutely ill
HEENT: Normocephalic, Atraumatic and Moist Mucous Membranes
Respiratory: Coarse crackles bilateral; Negative Wheezes or Rhonchi
Cardiac: Regular Rhythm and S1/S2
GI: Soft, Nontender and Nondistended
Musculoskeletal: Bilateral lower extremity edema. No Clubbing, No Cyanosis
Neuro: Awake, Alert and Oriented
Psych: Calm
A/P:
Acute hypoxic respiratory failure:
Likely due to heart failure
IV diuretics
Titrating oxygen to room air today
Seen and reviewed chest x-ray
Cardiology okay to transfer to telemetry
PT OT eval upon transfer
Acute on chronic systolic congestive heart failure:
IV diuretics, Lasix 40 mg IV twice a day
On IV nitro but discontinue and monitor-restart long-acting nitrates
On BiPAP but discontinue and placed on oxygen and titrate as able to wean
Cardiology consult appreciated
BNP upon admission 7870
Monitor strict I/O
Monitor daily weight
Monitor renal function and electrolytes
Reviewed latest echocardiogram on our system
Continue guideline-directed medical therapy for heart failure (GDMT)
Fluid restriction
Salt restriction
Heart failure education
Follow up clinical response
Recent sepsis due to enterococcal bacteremia:
I was going to start him back on IV Rocephin and ampicillin. Requested ID consult in the recommend IV daptomycin
Repeat blood cultures
Follow-up infectious parameters
Elevated troponin and chest pain:
Consideration for cardiac catheterization per cardiology
Trend troponin
Cardiac monitoring
Aortic stenosis status post TAVR:
Cardiology eval
CAD:
Continue anti-ischemic regimen
s/p 2.5 mm Promus to distal LAD and 2.25 mm Promus EMERITA to mid RCA 01/07/19, patent by cath 03/16/22
Hypertension:
Continue home antihypertensives.
Monitor blood pressure and adjust medications accordingly.
COPD:
No evidence of exacerbation
Hold off on systemic steroids
Diabetes mellitus type 2:
Diabetic diet
check blood sugars before meals and at bedtime
add insulin sliding scale
monitor blood sugar and adjust medications accordingly
Pancytopenia:
Recent pancytopenia noted but blood cell count appears stable today so we will follow-up trend
DVT prophylaxis:
SCDs
No pharmacological prophylaxis due to thrombocytopenia
CODE STATUS:
DNR
Total time spent on today's encounter was 52 minutes which included time spent in counseling the patient/family regarding diagnosis and treatment plan as listed above, goals of care, and symptom management. Case was discussed with nursing staff,
specialists, and care coordinators/case management. All labs and imaging personally reviewed by me. Remainder the time spent in detailed review of previous records, lab data, imaging, and other medical provider documentation.
Anticipated Discharge: > 48 hours
Subjective/Interval History
-
Date of Service: January 01, 2024
Patient feels better overall today. No chest pain. Less shortness of breath
Objective Data
-
Labs:
Laboratory Results
01/01/24
04:06
WBC 3.1 L
Hgb 10.2 L
Hct 28.7 L
Plt Count 102 L D
Sodium 135
Potassium 3.9
Chloride 101
Carbon Dioxide 31 H
BUN 13
Creatinine 0.9
Glucose 177 H
Calcium 8.4
Total Bilirubin 0.9
AST 59
ALT 42
Alkaline Phosphatase 99
Vital Signs:
Vital Signs
Temp Pulse Resp BP Pulse Ox
97.6 F 86 22 122/54 97
01/01/24 07:12 01/01/24 06:45 08/14/24 06:45 01/01/24 06:00 01/01/24 06:30
I&O
12/31/23 01/01/24 01/02/24
06:59 06:59 06:59
Intake Total 790 / 790 240 / 240
Output Total 3190 / 3190
Balance -2400 / -2400 240 / 240
--- NOTE | 2024-01-01 10:23 | PTCARENOTE ---
pt oob in am , awake and alert , no complaints, NSR on monitor , BP 108/54, lungs diminished , tachypneic on exertion , voiding in bathroom , labs noted IMU level of care
--- NOTE | 2024-01-01 10:51 | CM ---
CM following re: discharge planning.
Reviewed pt's chart, met with pt.
Pt is an 83 year old male, admitted with primary dx of Acute hypoxic respiratory failure: Likely due to heart failure.
Pt reports he lives with spouse in a 2SH, 1 step to enter, has 4 supportive children. 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 No DME, VN or SNF history. Pt expressed his desire to return back home at discharge.
Farxiga cooper checked - does not reimburse by insurance. Alternate medications: Jardiance 25 mg: $31.80 for 30 days supply and $33.00 for 90 days supply or Invokana 300 mg- $31.80 for 30 days supply and $33.00 for 90 days supply
PCP: Marquis West
Pharmacy: [facility]
D/C plan: home with anticipated no needs. Spouse to transport at discharge.
CM will follow with discharge plan updates as hospitalization progresses
[2024-01-01 11:48] LABS: Glucose - Point of Care 282 mg/dl (70-99)
[2024-01-01] MEDS: NOVOLOG FLEXPEN-MODERATE RESISTANCE 5 UNITS SC (11:49)
--- NOTE | 2024-01-01 12:01 | W.PN.ID1 ---
Date of Service
Date of Service: January 01, 2024
Today's Communication
Continue Daptomycin.
Assessment / Plan
# Recent Enterococcus faecalis bacteremia (12/23, 12/24)
- Unclear source. ZARIA: small PFO, no vegetation; CT a/p unremarkable
- Received 5d IV amp/ceftriaxone inpatient. Pt refused outpt IV -> dc'd on amoxicillin (took 1 dose at home prior to readmission)
# Acute on chronic CHF/pulm edema
# New RML lung nodule by CXR
# hx TAVR
- Repeat CXR in am. If new lung nodule remains, obtain chest CT.
- continue Enterococcus bacteremia treatment with Daptomycin (d7 abx) instead of ampicillin to reduce volume in setting of acute CHF.
#Additional Past Medical History:
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
s/p TAVR (2021)
CAD s/p stent
Ischemic cardiomyopathy
COPD
Chronic thrombocytopenia
Hypertension
Dyslipidemia
Nephrolithiasis
Andre's esophagus/stricture
Obstructive sleep apnea
Arthritis
AAA
C3-7 discectomy/laminectomy with screws
Jaw implant bilateral
B TKA
Chief Complaint
-: Other (CHF)
Subjective / Review of Systems
Cough and SOB much improved.
Vital Signs / Physical Exam
Vital Signs
Vital Signs
Temp Pulse Resp BP Pulse Ox
98.3 F 64 19 88/47 91
01/01/24 11:38 01/01/24 10:00 01/01/24 10:00 01/01/24 10:00 01/01/24 10:23
Physical Exam
Constitutional: No Acute Distress and Comfortable
Pulmonary: Clear
Gastrointestinal: Soft, Non Tender, Non Distended and Normal Bowel Sounds
Extremities: Edema (BLE 1 - 2+)
Neurological: AO x 3
Objective Data
Lab Data
Lab Results
01/01/24 04:06
01/01/24 04:06
Estimated Creat Clear 77 ml/min 01/01/24 04:06
Total Bilirubin 0.9 mg/dl (0.2-1.3) 01/01/24 04:06
AST 59 U/L (17-59) 01/01/24 04:06
ALT 42 U/L (0-50) 01/01/24 04:06
Alkaline Phosphatase 99 U/L (38-126) 01/01/24 04:06
Most recent labs reviewed.
Micro Results:
12/31/23 09:37 Blood Culture - Preliminary
Blood/Venous No Growth in 24 hours- Final report to follow
12/31/23 09:37 Blood Culture - Preliminary
Blood/Venous No Growth in 24 hours- Final report to follow
12/31/23 CXR: Pulmonary edema with small right greater than left pleural effusions. Interval development of a 2.1 cm nodule in the right midlung which was not visualized on the chest radiograph from 12/24/2023. Given the short interval duration between
the 2 radiographs, this may be artifactual and related to a structure external to the patient, however new lung nodule is a possibility. Consider short-term repeat chest radiographs, and if still present, CT of the chest may be warranted at that
time.
[2024-01-01] MEDS: CUBICIN 20 MG IV (14:27)
--- NOTE | 2024-01-01 14:35 | PTCARENOTE ---
pt now written for telemetry level of care , troponin level up to 1.280 , Dr Elizabeth notified
[2024-01-01] MEDS: NOVOLOG FLEXPEN-MODERATE RESISTANCE 3 UNITS SC (17:37)
[2024-01-01 17:47] LABS: Glucose - Point of Care 267 mg/dl (70-99)
[2024-01-01 18:26] LABS: Blood Urea Nitrogen 15 mg/dl (9-20); Calcium 9.3 mg/dl (8.4-10.2); Carbon Dioxide 28 mmol/L (22-30); Chloride 97 mmol/L (98-107); Estimated Creatinine Clearance 76 ml/min; Glucose 242 mg/dl (70-99); Potassium 4.3 mmol/L (3.5-5.1); Sodium 133 mmol/L (135-145); eGFR > 60.00
--- NOTE | 2024-01-01 20:00 | PTCARENOTE ---
on assessment pt AAOx3, denies pain, OOB to chair, assist x1, pt states he was ambulating in room all day, SR on the monitor, RA 92%, has been voiding in bathroom during the day, placed back into bed, call morse in reach.
[2024-01-01 22:46] LABS: Glucose - Point of Care 226 mg/dl (70-99)
[2024-01-02] VITALS (10 sets, daily range): BP systolic 106–148; BP diastolic 45–64; PULSE 72; O2SAT 94; BMI 31.2
[2024-01-02 05:19] LABS: Hematocrit 32.9 % (39.0-52.0); Mean Corp Hgb Conc. 33.4 g/dL (33.0-37.0); Mean Corpuscular Hgb 31.2 pg (27.0-31.0); Mean Corpuscular Volume 93.2 fL (80.0-94.0); Mean Platelet Volume 11.2 fL (7.4-10.4); Platelet Count 114 10^3/uL (130-400); Red Blood Cell Count 3.53 10^6/uL (4.70-6.10); Red Cell Dist. Width 14.6 % (11.5-14.5)
[2024-01-02 05:37] LABS: Blood Urea Nitrogen 15 mg/dl (9-20); Calcium 8.7 mg/dl (8.4-10.2); Carbon Dioxide 33 mmol/L (22-30); Chloride 98 mmol/L (98-107); Estimated Creatinine Clearance 76 ml/min; Glucose 195 mg/dl (70-99); Potassium 3.9 mmol/L (3.5-5.1); Sodium 135 mmol/L (135-145); eGFR > 60.00
[2024-01-02 07:43] LABS: Glucose - Point of Care 216 mg/dl (70-99)
--- NOTE | 2024-01-02 07:44 | W.PN.HOSP.TC ---
Today's Communication/Plan
-
IV Lasix. IV daptomycin. Hematology eval. Plan for cardiac cath
Assessment / Plan
Assessment / Plan
Physical exam:
General: Acutely ill
HEENT: Normocephalic, Atraumatic and Moist Mucous Membranes
Respiratory: Coarse crackles bilateral; Negative Wheezes or Rhonchi
Cardiac: Regular Rhythm and S1/S2
GI: Soft, Nontender and Nondistended
Musculoskeletal: Bilateral lower extremity edema. No Clubbing, No Cyanosis
Neuro: Awake, Alert and Oriented
Psych: Calm
A/P:
Acute hypoxic respiratory failure:
Likely due to heart failure
IV diuretics
Titrated oxygen off to room air
Repeated chest x-ray today with improvement of heart failure and no lung nodule
PT OT eval
Discussed with at bedside
Discussed with cardiology
Acute on chronic systolic congestive heart failure:
IV diuretics, Lasix 40 mg IV twice a day
On IV nitro but discontinue and monitor-restart long-acting nitrates
On BiPAP but discontinue and placed on oxygen and titrate as able to wean
Cardiology consult appreciated
BNP upon admission 7870
Monitor strict I/O
Monitor daily weight
Monitor renal function and electrolytes
Reviewed latest echocardiogram on our system
Continue guideline-directed medical therapy for heart failure (GDMT)
Fluid restriction
Salt restriction
Heart failure education
Follow up clinical response
Elevated troponin and chest pain:
Consideration for cardiac catheterization per cardiology. Cardiology requests hematology evaluation in the setting of pancytopenia and probable antiplatelet use.
Possible cardiac cath tomorrow
Hematology consulted-[place] texted hematology today
Trended troponin
Cardiac monitoring
Recent sepsis due to enterococcal bacteremia:
Continue IV daptomycin per ID
Repeat blood cultures no growth during this hospital stay
Follow-up infectious parameters
ID noticed probably change back to oral antibiotics upon discharge
Aortic stenosis status post TAVR:
Cardiology eval
CAD:
Continue anti-ischemic regimen
s/p 2.5 mm Promus to distal LAD and 2.25 mm Promus EMERITA to mid RCA 01/07/19, patent by cath 03/16/22
Hypertension:
Continue home antihypertensives.
Monitor blood pressure and adjust medications accordingly.
COPD:
No evidence of exacerbation
Hold off on systemic steroids
Diabetes mellitus type 2:
Diabetic diet
check blood sugars before meals and at bedtime
add insulin sliding scale
monitor blood sugar and adjust medications accordingly
Pancytopenia:
Chronic pancytopenia
Monitor cell count
Hematology eval
DVT prophylaxis:
SCDs
No pharmacological prophylaxis due to thrombocytopenia
CODE STATUS:
DNR
Total time spent on today's encounter was 52 minutes which included time spent in counseling the patient/family regarding diagnosis and treatment plan as listed above, goals of care, and symptom management. Case was discussed with nursing staff,
specialists, and care coordinators/case management. All labs and imaging personally reviewed by me. Remainder the time spent in detailed review of previous records, lab data, imaging, and other medical provider documentation.
Anticipated Discharge: 24 - 48 hours
Subjective/Interval History
-
Date of Service: January 02, 2024
Patient feels better overall. Less shortness of breath. No chest pain. Afebrile
Objective Data
-
Labs:
Laboratory Results
01/02/24
04:59
WBC 4.0 L
Hgb 11.0 L
Hct 32.9 L
Plt Count 114 L
Sodium 135
Potassium 3.9
Chloride 98
Carbon Dioxide 33 H
BUN 15
Creatinine 0.9
Glucose 195 H
Calcium 8.7
Vital Signs:
Vital Signs
Temp Pulse Resp BP Pulse Ox
98.6 F 74 24 148/56 91
01/02/24 06:56 01/02/24 05:15 01/01/24 14:30 01/02/24 05:10 01/02/24 05:07
I&O
01/01/24 01/02/24 01/03/24
06:59 06:59 06:59
Intake Total 790 / 790 270 / 270
Output Total 3190 / 3190 300 / 300
Balance -2400 / -2400 -30 / -30
--- NOTE | 2024-01-02 07:47 | W.PN.CARDCBS ---
Addendum entered and electronically signed by Taylor Laguerre DO 01/02/24 10:06:
I saw and examined the patient.
[facility] note was reviewed and I agree with the note.
Comment: Patient seen and examined. Chart reviewed. Several recent hospitalizations first with enterococcal bacteremia from seen by ID with unclear source, blood cultures no growth to date since 12/25. ZARIA without vegetation on TAVR.
Now presents with chest pain and acute heart failure exacerbation with new reduced cardiomyopathy found to be 40% on echocardiogram and elevated troponin 1.28. K coronary artery disease status post multivessel stenting to both LAD and RCA in 2019
and 2021. Currently chest pain-free with improved shortness of breath and edema. Previous plan was for left heart catheterization prior to discharge
GEN: No distress, awake, alert, oriented x3. sitting in chair.
HEENT: mmm
LUNGS: Decreased BS at bases
CV: Reg, S1/S2, 2/6 murmur
ABD: soft, BS+, NT/ND
EXT: trace edema of B/L LE
Plan:
-Presented back with chest discomfort/shortness of breath found to have NSTEMI and acute heart failure exacerbation now with reduced ejection fraction
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
-Peak troponin 1.28
-Previous discussions to proceed with left heart catheterization prior to discharge. Patient is agreeable. Tentative plan for left heart catheterization on Saturday [will need to discuss with interventional cardiology given patient's specific
procedural request]
-Discussed with medicine -consult hematology given history of chronic thrombocytopenia. Platelets were not prohibitive and recent marked thrombocytopenia likely related to enterococcal bacteremia
-Transition to oral Lasix tomorrow. Will increase outpatient dose to 40 mg daily
-Continue goal-directed medical therapy:
-Metoprolol was stopped in the past due to bradycardia on outpatient monitor. Continue losartan, Imdur, aspirin, Crestor, Zetia. consider addition of spironolactone following cardiac catheterization
-Consider outpatient addition of Jardiance
Recent enterococcal bacteremia on IV antibiotics
-ID service is following
-Blood cultures no growth to date since 12/26/2023
-ZARIA and TTE without evidence of endocarditis
-Unclear source, will likely need outpatient GI evaluation. CT abdomen pelvis 12/24/2023 reviewed
-ok for transfer out of ICU from cardiac standpoint
Original Note:
Today's Communication / Plan
-
continue diuresis
consider for LHC in AM
consider hematology evaluation to ensure ok for DAPT prior to cath
Impression / Plan
-
PCP: Dr. West
Cardiology: Dr. Maureen Escamilla
Impression:
Presentation with chest pain/SOB
Acute HFrEF
Elevated troponin
Elevated LFTs, improving
Anemia
Possible R lung nodule by CXR 12/30/23
admission for enterococcal bacteremia 12/23-12/29/23
Cardiomyopathy, EF 40% by echo 12/24
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
mean gradient 18 mmHg by echo 04/19/23 and increased to 30 mmHg by echo 12/25/23
Worsened CM EF 45% by echo 05/23/22, EF 40% by echo 12/25/23
MODESTA
Recent outpatient treatment for suspected ureteral stone 12/18/23
Recent foot wound managed by outpatient injection molder 08/2023
CAD s/p 2.5 mm Promus to distal LAD and 2.25 mm Promus EMERITA to mid RCA 01/07/19, patent by cath 03/16/22
DM 2
cLBBB
HTN
Chronic thrombocytopenia
COPD
Echo 05/23/22: EF 45 to 50%, moderate LVH, status post TAVR with peak/mean 30/15 mmHg
Echo 04/19/23: EF 50 to 55%, moderate concentric LVH, status post TAVR with peak/mean 33/18 mmHg
Echo 12/25/23: EF 40%, status post TAVR with peak/mean 47/30 mmHg, no aortic regurgitation seen, mild TR with PAP 35 mmHg, no definitive intracardiac mass noted
ZARIA 12/27/2023: EF 40%, global diffuse hypokinesis, status post TAVR with peak/mean gradients 31/18 mmHg, no significant AI, small PFO, no obvious vegetation appreciated
Plan:
-Patient with recent admission for enterococcal bacteremia, presented back with chest discomfort and acute CHF
-Continue IV Lasix. Creatinine stable. was on po lasix 20mg MWF as OP, will need higher dosing for DC
-now on RA
-LFTs normalized
-By echo 12/24 and ZARIA 12/26 no evidence of endocarditis however did show new reduction in EF compared to prior to 40%.
-Troponin peaked at 1.28. Presently without chest discomfort. By last cath in 2021, LAD and RCA stents were patent. consider for cath in AM
-follow hgb/plts, 11/114K on 01/01. he has history of chronic thrombocytopenia and last week in setting of bacteremia platelets were in 40K range. would need to ensure he is candidate for DAPT prior to considering for cath. consider hematology eval
today
-Metoprolol was stopped in the past due to bradycardia on outpatient monitor. Continue losartan, Imdur, aspirin, Crestor, Zetia
-farxiga not covered by insurance however jardiance is, consider addition, however with recent bacteremia of unclear source. consider addition of spironolactone. Of note patient has history of MODESTA in the past
-ok for transfer out of ICU from cardiac standpoint
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
Subjective
Date of Service: January 02, 2024
no issues overnight. SOB improved. no CP
Objective
Labs:
01/02/24 04:59
01/02/24 04:59
Labs
Hgb 11.0 g/dL (13.0-18.0) L 01/02/24 04:59
Hct 32.9 % (39.0-52.0) L 01/02/24 04:59
Plt Count 114 10^3/uL (130-400) L 01/02/24 04:59
Sodium 135 mmol/L (135-145) 01/02/24 04:59
Potassium 3.9 mmol/L (3.5-5.1) 01/02/24 04:59
BUN 15 mg/dl (9-20) 01/02/24 04:59
Creatinine 0.9 mg/dL (0.7-1.3) 01/02/24 04:59
Glucose 195 mg/dl (70-99) H 01/02/24 04:59
Troponins
12/31/23 01/01/24 01/01/24
06:04 11:27 17:46
Troponin I 0.284 H* 1.280 H* 1.100 H*
Vital Signs and I&O:
Vital Signs
Temp Pulse Resp BP Pulse Ox
98.6 F 74 24 148/56 91
01/02/24 06:56 01/02/24 05:15 01/01/24 14:30 01/02/24 05:10 01/02/24 05:07
Vital Signs
Temp Pulse Resp BP Pulse Ox
98.6 F 74 24 148/56 91
01/02/24 06:56 01/02/24 05:15 01/01/24 14:30 01/02/24 05:10 01/02/24 05:07
Intake & Output
12/30/23 12/31/23 01/01/24 01/02/24
07:59 07:59 07:59 07:59
Intake Total 790 / 790 270 / 270
Output Total 3190 / 3190 300 / 300
Balance -2400 / -2400 -30 / -30
Physical Exam
Physical Exam
GEN: No distress, awake, alert, oriented x3. sitting in chair.
HEENT: supple, anicteric, mmm, eomi
LUNGS: Decreased BS at bases
CV: Reg, S1/S2, 2/6 murmur
ABD: soft, BS+, NT/ND
EXT: No cyanosis, clubbing. 1+ edema of B/L LE
NEURO: Gross non-focal
SKIN: Warm, pink, dry. No rash
[2024-01-02] MEDS: NOVOLOG FLEXPEN-MODERATE RESISTANCE 3 UNITS SC (08:04)
[2024-01-02] MEDS: LASIX 40 MG IV (08:09)
[2024-01-02] MEDS: ASPIR LOW (ENTERIC COATED) 81 MG PO (08:15)
[2024-01-02] MEDS: COZAAR 25 MG PO (08:15)
[2024-01-02] MEDS: MAGNESIUM OXIDE 250 MG PO (08:16)
[2024-01-02] MEDS: IMDUR (EXTENDED RELEASE) 60 MG PO (08:16)
[2024-01-02] MEDS: ZETIA 10 MG PO (08:17)
[2024-01-02] MEDS: VITAMIN B-12 1000 MCG PO (08:17)
[2024-01-02] MEDS: VITAMIN B-6 50 MG PO (08:17)
[2024-01-02] MEDS: PROTONIX 40 MG PO (08:17)
--- NOTE | 2024-01-02 08:43 | PTCARENOTE ---
Complete assessment done and documented. Pt cleared to go to tele bed when available. Pt denies any chest pain at this time. Pt being scheduled for cardiac cath tomorrow. VSS
--- NOTE | 2024-01-02 09:26 | W.PN.ID1 ---
Date of Service
Date of Service: January 02, 2024
Today's Communication
Repeat CXR.
Continue daptomycin for now.
Assessment / Plan
# Recent Enterococcus faecalis bacteremia (12/23, 12/24)
- Unclear source. ZARIA: small PFO, no vegetation; CT a/p unremarkable
- Received 5d IV amp/ceftriaxone inpatient. Pt refused outpt IV -> dc'd on amoxicillin (took 1 dose at home prior to readmission)
# Acute on chronic CHF/pulm edema
# New RML lung nodule by CXR
# hx TAVR
- For [facility] per cardiology
- Repeat CXR. If new lung nodule remains, obtain chest CT.
- continue Enterococcus bacteremia treatment with Daptomycin (d8 abx) instead of ampicillin to reduce volume in setting of acute CHF.
- Again discussed with patient about abx management. He remains adamant about refusing outpt IV abx.
At time of discharge, transition to high dose amoxicillin 1g po q8h and through 01/21/24
Obtain surveillance blood cultures at 1 week and 2 weeks after completion of antibiotic.
#Additional Past Medical History:
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
s/p TAVR (2021)
CAD s/p stent
Ischemic cardiomyopathy
COPD
Chronic thrombocytopenia
Hypertension
Dyslipidemia
Nephrolithiasis
Nadre's esophagus/stricture
Obstructive sleep apnea
Arthritis
AAA
C3-7 discectomy/laminectomy with screws
Jaw implant bilateral
B TKA
Chief Complaint
-: Other (CHF)
Subjective / Review of Systems
Feels better.
Vital Signs / Physical Exam
Vital Signs
Vital Signs
Temp Pulse Resp BP Pulse Ox
98.6 F 77 24 119/53 97
01/02/24 06:56 01/02/24 08:15 01/01/24 14:30 01/02/24 08:15 01/02/24 08:32
Physical Exam
Constitutional: No Acute Distress
Cardiovascular: Regular Rate and S1/S2
Pulmonary: Clear
Gastrointestinal: Soft, Non Tender and Non Distended
Extremities: Edema (1+ BLE)
Neurological: AO x 3
Objective Data
Lab Data
Lab Results
01/02/24 04:59
01/02/24 04:59
Estimated Creat Clear 76 ml/min 01/02/24 04:59
Total Bilirubin 0.9 mg/dl (0.2-1.3) 01/01/24 04:06
AST 59 U/L (17-59) 01/01/24 04:06
ALT 42 U/L (0-50) 01/01/24 04:06
Alkaline Phosphatase 99 U/L (38-126) 01/01/24 04:06
Most recent labs reviewed.
Micro Results:
12/31/23 09:37 Blood Culture - Preliminary
Blood/Venous No Growth in 24 hours- Final report to follow
12/31/23 09:37 Blood Culture - Preliminary
Blood/Venous No Growth in 24 hours- Final report to follow
12/31/23 CXR: Pulmonary edema with small right greater than left pleural effusions. Interval development of a 2.1 cm nodule in the right midlung which was not visualized on the chest radiograph from 12/24/2023. Given the short interval duration between
the 2 radiographs, this may be artifactual and related to a structure external to the patient, however new lung nodule is a possibility. Consider short-term repeat chest radiographs, and if still present, CT of the chest may be warranted at that
time.
--- NOTE | 2024-01-02 11:20 | CON.ONC ---
Impression
Impression
Recent Enterococcus faecalis bacteremia. ZARIA, no vegetation on dapto
Pancytopenia, chronic -normal liver and spleen on CT of the abdomen and pelvis December 24, 2023, however abdominal ultrasound is notable for cirrhosis and probable portal hypertension with splenic diameter of 15.9 cm. Acute on chronic cytopenias may
be related to recent bacteremia and antibiotics. Platelet count has improved to baseline since last week.
Thrombocytopenia improving from last week
Mild normocytic anemia
Leukopenia, lymphopenia
aHFrEF
NSTEMI
Plan
Plan
Check DIC panel
Check B12 and folate
Check iron studies with ferritin
requested hepatitis C screen
Patient History
History of Present Illness
83-year-old male with recent admission 12/23-12/29 for enterococcal bacteremia readmitted with respiratory distress. He tells me that he was having shortness of breath with mid sternal chest pain while he was walking to the bathroom. His symptoms
progressed throughout the day which prompted him to call 911. Initial evaluation in the emergency room showed a BNP 7870, troponin 0.284, chest x-ray with evidence of CHF for which she was started on BiPAP and a nitro drip. On admission WBC 7,
hemoglobin 12.5, platelet count 145,000 with normal renal function and LFTs. His labs have trended down to WBC 4, hemoglobin 11, MCV 93.2, platelet count 114,000. no differential done today, however yesterday ANC was 1700 and ALC was 800. He does
have a history of chronic thrombocytepenia which date back to at least 2006 and previously evaluated by Dr. Cooper in 2017. His platelet count has improved from his prior hospitalization last week from ~40-60,000 to 114,000 today which is his
historic baseline. He denies any prior transfusions.
Afebrile, no hypotension, hypoxia resolved and now on room air
Past-Medical/Surgical History
Past medical history DM2, DM retinopathy, COPD, hypertension, CAD, myocardial infarction 1996, aortic stenosis, hyperlipidemia, arthritis, cataracts, esophageal stricture, peripheral neuropathy, CHF, chronic pancreatitis, nephrolithiasis,
diverticulosis, degenerative disc disease, ischemic cardiomyopathy, Andre's esophagus, obstructive sleep apnea
Past surgical history cervical spine laminectomy, carpal tunnel bilaterally, anterior cervical discectomy, left knee replacement, right knee replacement, TAVR, bilateral gel implants
Social , lives with , former tobacco use quit 1987. Denies alcohol use or recreational drugs. Retired.
Family history: Multiple family members with malignancy including grandparents, father, aunts and uncles, brother, and cousins. Patient is unable to tell me the types of cancer that each family member has.
Patient Medication
�Medication �Instructions �Recorded �Confirmed �Last Taken �Type
ascorbic acid (vitamin C) 500 mg 1,000 mg PO DAILY Supplement 12/24/23 12/31/23 12/21/23 History
tablet (Vitamin C)
cyanocobalamin (vitamin B-12) 1,000 mcg PO DAILY Supplement 12/24/23 12/31/23 12/21/23 History
1,000 mcg tablet
dulaglutide 0.75 mg/0.5 mL 0.75 mg SC FR Diabetes 12/24/23 12/31/23 12/20/23 History
subcutaneous pen injector
(Trulicity)
ezetimibe 10 mg tablet (Zetia) 10 mg PO DAILY High Cholesterol 12/24/23 12/31/23 12/21/23 History
furosemide 20 mg tablet (Lasix) 20 mg PO MOWEFR Fluid 12/24/23 12/31/23 12/20/23 History
Retention/Swelling
garlic 400 mg tablet,delayed 400 mg PO DAILY Supplement 12/24/23 12/31/23 12/21/23 History
release
glipizide 5 mg tablet 5 mg PO DAILY Diabetes 12/24/23 12/31/23 12/21/23 History
isosorbide mononitrate 60 mg 60 mg PO DAILY Heart 12/24/23 12/31/23 12/21/23 History
tablet,extended release 24 hr Disease/Condition
losartan 25 mg tablet 25 mg PO DAILY Blood Pressure 12/24/23 12/31/23 12/21/23 History
magnesium oxide 200 mg PO DAILY Supplement 12/24/23 12/31/23 12/21/23 History
pantoprazole 40 mg tablet,delayed 40 mg PO DAILY GERD 12/24/23 12/31/23 12/21/23 History
release (Protonix)
potassium 99 mg tablet 99 mg PO DAILY Supplement 12/24/23 12/31/23 12/21/23 History
pyridoxine (vitamin B6) 50 mg 50 mg PO DAILY Supplement 12/24/23 12/31/23 12/21/23 History
tablet
rosuvastatin 5 mg tablet 5 mg PO MOWEFR High Cholesterol 12/24/23 12/31/23 12/20/23 History
therapeutic multivitamin 1 tab PO DAILY Supplement 12/24/23 12/31/23 12/21/23 History
amoxicillin 500 mg capsule 1,000 mg PO Q8H bacteremia 12/31/23 12/31/23 Unknown History
aspirin 81 mg capsule 81 mg PO DAILY Blood Pressure 12/31/23 12/31/23 Unknown History
oxycodone-acetaminophen 10 mg-325 1 tab PO Q6HPRN PRN severe pains 12/31/23 12/31/23 12/30/23 History
mg tablet
Active Medications
Generic Name Dose Route Start Last Admin
Trade Name Freq PRN Reason Stop Dose Admin
Aspirin 81 mg 01/01/24 08:00 01/02/24 08:15
Aspirin 81 Mg (Enteric Coated) Tablet PO 01/29/24 07:59 81 mg
DAILY KATE Administration
Bisacodyl 10 mg 12/31/23 10:29
Bisacodyl 10 Mg Rectal Suppository RECTAL 01/28/24 10:28
[id number] PRN
constipation
Cyanocobalamin 1,000 mcg 01/01/24 08:00 01/02/24 08:17
Cyanocobalamin 1,000 Mcg Tablet PO 01/29/24 07:59 1,000 mcg
DAILY KATE Administration
Dextrose 12.5 grams 12/31/23 09:23
Dextrose 50% (0.5 Grams/Ml) 50 Ml Syringe IV 01/28/24 09:22
[id number] PRN
hypoglycemia
Protocol
Ezetimibe 10 mg 12/31/23 12:00 01/02/24 08:17
Ezetimibe (Zetia) 10 Mg Tablet PO 01/28/24 11:59 10 mg
DAILY KATE Administration
Furosemide 40 mg 12/31/23 16:00 01/02/24 08:09
Furosemide 40 Mg (10 Mg/Ml) 4 Ml Vial IV 01/02/24 23:00 40 mg
BID AT 0800,1600 KATE Administration
Furosemide 40 mg 01/03/24 08:00
Furosemide 40 Mg Tablet PO 01/31/24 07:59
DAILY KATE
Glucagon 1 mg 12/31/23 09:23
Glucagon 1 Mg Vial IM 01/28/24 09:22
PRN PRN
hypoglycemia
Protocol
Daptomycin 1,000 mg/ Device 20 mls @ 0 mls/hr 12/31/23 14:00 01/01/24 14:27
IV 20 mls
Q24H KATE Administration
As Directed
Insulin Aspart 0 units 12/31/23 11:30 01/02/24 08:04
Insulin Aspart Moderate Resistance 300 Units/3 Ml Pen.Injctr SC 01/28/24 11:29 3 units
AC KATE Administration
Protocol
Isosorbide Mononitrate 60 mg 12/31/23 12:00 01/02/24 08:16
Isosorbide Mononitrate 60 Mg Extended Release Tablet PO 01/28/24 11:59 60 mg
DAILY KATE Administration
Losartan Potassium 25 mg 01/01/24 08:00 01/02/24 08:15
Losartan 25 Mg Tablet PO 01/29/24 07:59 25 mg
DAILY KATE Administration
Magnesium Oxide 250 mg 01/01/24 08:00 01/02/24 08:16
Magnesium Oxide 500 Mg Tablet PO 01/29/24 07:59 250 mg
DAILY KATE Administration
Oxycodone HCl 10 mg 12/31/23 11:47
Oxycodone 10 Mg Regular Release Tablet PO 01/14/24 11:42
Q6HPRN PRN
severe pains
Pantoprazole Sodium 40 mg 12/31/23 12:00 01/02/24 08:17
Pantoprazole 40 Mg Delayed Release Tablet PO 01/28/24 11:59 40 mg
DAILY KATE Administration
Polyethylene Glycol 17 grams 12/31/23 10:29
Polyethylene Glycol Powder 17 Grams Packet PO 01/28/24 10:28
DAILYPRN PRN
constipation
Pyridoxine HCl 50 mg 12/31/23 12:00 01/02/24 08:17
Pyridoxine 50 Mg Tablet PO 01/28/24 11:59 50 mg
DAILY KATE Administration
Rosuvastatin Calcium 5 mg 01/01/24 08:00 01/01/24 09:08
Rosuvastatin (Crestor) 5 Mg Tablet PO 01/29/24 07:59 5 mg
MoWeFr@0800 KATE Administration
Senna/Docusate Sodium 1 tablet 12/31/23 10:29
Docusate W/Senna (Shanika-Colace) Tablet PO 01/28/24 10:28
BIDPRN PRN
constipation
Sodium Chloride 0 flush 12/31/23 10:00
Sodium Chloride 0.9% (Flush) Syringe IV 01/28/24 09:59
PER PROTOCOL KATE
Review of Systems
-
Review of systems notable for HPI, otherwise negative
Physical Exam
-
Constitutional: No Acute Distress
Cardiovascular: Regular Rate and S1/S2
Pulmonary: Clear
Gastrointestinal: Soft, Non Tender and Non Distended
Extremities: trace ankle edema b/l
Neurological: AO x 3
Labs
Lab Results
WBC 4.0 10^3/uL (4.8-10.8) L 01/02/24 04:59
RBC 3.53 10^6/uL (4.70-6.10) L 01/02/24 04:59
Hgb 11.0 g/dL (13.0-18.0) L 01/02/24 04:59
Hct 32.9 % (39.0-52.0) L 01/02/24 04:59
MCV 93.2 fL (80.0-94.0) 01/02/24 04:59
MCH 31.2 pg (27.0-31.0) H 01/02/24 04:59
MCHC 33.4 g/dL (33.0-37.0) 01/02/24 04:59
RDW 14.6 % (11.5-14.5) H 01/02/24 04:59
Plt Count 114 10^3/uL (130-400) L 01/02/24 04:59
MPV 11.2 fL (7.4-10.4) H 01/02/24 04:59
Abs Immat Gran (auto) 0.1 10^3/uL (0-0.05) H 01/01/24 04:06
Absolute Neuts (auto) 1.7 10^3/uL (1.4-6.5) 01/01/24 04:06
Absolute Lymphs (auto) 0.8 10^3/uL (1.2-3.4) L 01/01/24 04:06
Absolute Monos (auto) 0.4 10^3/uL (0.1-0.6) 01/01/24 04:06
Absolute Eos (auto) 0.1 10^3/uL (0-0.7) 01/01/24 04:06
Absolute Basos (auto) 0.0 10^3/uL (0-0.2) 01/01/24 04:06
Immature Gran % 1.6 % (0-0.5) H 01/01/24 04:06
Neutrophils % 56.3 % (42.2-75.2) 01/01/24 04:06
Lymphocytes % 24.5 % (20.5-51.1) 01/01/24 04:06
Monocytes % 12.7 % (1.7-9.3) H 01/01/24 04:06
Eosinophils % 4.2 % (0-6) 01/01/24 04:06
Basophils % 0.7 % (0-2) 01/01/24 04:06
Creatinine 0.9 mg/dL (0.7-1.3) 01/02/24 04:59
Vital Signs
Vital Signs
Temp Pulse Resp BP Pulse Ox
97.8 F 72 18 140/62 94
01/02/24 10:00 01/02/24 10:00 01/02/24 10:00 01/02/24 10:00 01/02/24 10:00
[2024-01-02 11:28] LABS: Glucose - Point of Care 331 mg/dl (70-99)
[2024-01-02] MEDS: NOVOLOG FLEXPEN-MODERATE RESISTANCE 7 UNITS SC (11:46)
[2024-01-02] MEDS: CUBICIN 20 MG IV (13:26)
--- NOTE | 2024-01-02 13:59 | CM ---
CM following re: discharge planning.
Reviewed pt's chart, met with pt. 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 No DME, VN or SNF history.
D/C plan: home with anticipated no needs. Spouse to transport at discharge.
CM will follow with discharge plan updates as hospitalization progresses
[2024-01-02] MEDS: LASIX IV (15:50)
[2024-01-02 16:22] LABS: Glucose - Point of Care 263 mg/dl (70-99)
[2024-01-02] MEDS: NOVOLOG FLEXPEN-MODERATE RESISTANCE 5 UNITS SC (16:53)
[2024-01-02 21:20] LABS: Glucose - Point of Care 248 mg/dl (70-99)
[2024-01-03] VITALS (12 sets, daily range): BP systolic 91–164; BP diastolic 43–78; BMI 30.1
[2024-01-03 05:53] LABS: Glucose - Point of Care 192 mg/dl (70-99)
[2024-01-03] MEDS: NOVOLOG FLEXPEN-MODERATE RESISTANCE 1 UNITS SC ×2 (05:57→14:10)
[2024-01-03] MEDS: MAGNESIUM OXIDE 250 MG PO (08:11)
[2024-01-03] MEDS: ASPIR LOW (ENTERIC COATED) 81 MG PO (08:11)
[2024-01-03] MEDS: PROTONIX 40 MG PO (08:11)
[2024-01-03] MEDS: VITAMIN B-12 1000 MCG PO (08:12)
[2024-01-03] MEDS: VITAMIN B-6 50 MG PO (08:12)
[2024-01-03] MEDS: ZETIA 10 MG PO (08:12)
[2024-01-03] MEDS: COZAAR 25 MG PO (08:12)
[2024-01-03] MEDS: LASIX 40 MG PO (08:12)
[2024-01-03] MEDS: IMDUR (EXTENDED RELEASE) 60 MG PO (08:13)
[2024-01-03] MEDS: CRESTOR 5 MG PO (08:16)
--- NOTE | 2024-01-03 08:36 | W.PN.HOSP.TC ---
Today's Communication/Plan
-
IV Lasix. Probably cardiac cath today.
Assessment / Plan
Assessment / Plan
Physical exam:
General: Acutely ill
HEENT: Normocephalic, Atraumatic and Moist Mucous Membranes
Respiratory: Coarse crackles bilateral; Negative Wheezes or Rhonchi
Cardiac: Regular Rhythm and S1/S2
GI: Soft, Nontender and Nondistended
Musculoskeletal: Bilateral lower extremity edema. No Clubbing, No Cyanosis
Neuro: Awake, Alert and Oriented
Psych: Calm
A/P:
Acute hypoxic respiratory failure:
Likely due to heart failure
IV diuretics
Titrated oxygen off to room air
Repeated chest x-ray today with improvement of heart failure and no lung nodule
PT OT eval
Discussed with at bedside prior
Discussed with cardiology prior
Acute on chronic systolic congestive heart failure:
IV diuretics, Lasix 40 mg IV twice a day
On IV nitro but discontinue and monitor-restart long-acting nitrates
On BiPAP but discontinue and placed on oxygen and titrate as able to wean
Cardiology consult appreciated
BNP upon admission 7870
Monitor strict I/O
Monitor daily weight
Monitor renal function and electrolytes
Reviewed latest echocardiogram on our system
Continue guideline-directed medical therapy for heart failure (GDMT)
Fluid restriction
Salt restriction
Heart failure education
Follow up clinical response
Elevated troponin and chest pain:
Consideration for cardiac catheterization per cardiology. Cardiology requests hematology evaluation in the setting of pancytopenia and probable antiplatelet use.
Possible cardiac cath tomorrow
Hematology consulted
Trended troponin
Cardiac monitoring
Recent sepsis due to enterococcal bacteremia:
Continue IV daptomycin per ID
Repeat blood cultures no growth during this hospital stay
Follow-up infectious parameters
ID noticed probably change back to oral antibiotics upon discharge
Aortic stenosis status post TAVR:
Cardiology eval
CAD:
Continue anti-ischemic regimen
s/p 2.5 mm Promus to distal LAD and 2.25 mm Promus EMERITA to mid RCA 01/07/19, patent by cath 03/16/22
Hypertension:
Continue home antihypertensives.
Monitor blood pressure and adjust medications accordingly.
COPD:
No evidence of exacerbation
Hold off on systemic steroids
Diabetes mellitus type 2:
Diabetic diet
check blood sugars before meals and at bedtime
add insulin sliding scale
monitor blood sugar and adjust medications accordingly
Pancytopenia:
Chronic pancytopenia but today much improved
Monitor cell count
Hematology eval appreciated
DVT prophylaxis:
SCDs
No pharmacological prophylaxis due to thrombocytopenia
CODE STATUS:
DNR
Total time spent on today's encounter was 52 minutes which included time spent in counseling the patient/family regarding diagnosis and treatment plan as listed above, goals of care, and symptom management. Case was discussed with nursing staff,
specialists, and care coordinators/case management. All labs and imaging personally reviewed by me. Remainder the time spent in detailed review of previous records, lab data, imaging, and other medical provider documentation.
Anticipated Discharge: 24 - 48 hours
Subjective/Interval History
-
Date of Service: January 03, 2024
Patient denies worsening shortness of breath. No chest pain. Afebrile. No bleeding
Objective Data
-
Labs:
Laboratory Results
01/03/24
06:00
WBC Pending
Hgb Pending
Hct Pending
Plt Count Pending
PT Pending
INR Pending
APTT Pending
Sodium Pending
Potassium Pending
Chloride Pending
Carbon Dioxide Pending
BUN Pending
Creatinine Pending
Glucose Pending
Calcium Pending
Vital Signs:
Vital Signs
Temp Pulse Resp BP Pulse Ox
97.9 F 74 18 124/61 95
01/03/24 03:23 01/03/24 03:23 01/03/24 03:23 01/03/24 03:23 01/03/24 03:23
I&O
01/02/24 01/03/24 01/04/24
06:59 06:59 06:59
Intake Total 270 / 270 1839
Output Total 300 / 300
Balance -30 / -30 1839
[2024-01-03 09:45] LABS: INR 1.17; PT 14.7 Sec (11.4-14.6)
[2024-01-03 09:46] LABS: APTT 32.3 Sec (23.4-35.0)
[2024-01-03 09:48] LABS: D-Dimer 2.02 ug/mlFEU (0.00-0.50)
[2024-01-03 09:57] LABS: Blood Urea Nitrogen 19 mg/dl (9-20); Calcium 9.2 mg/dl (8.4-10.2); Carbon Dioxide 34 mmol/L (22-30); Chloride 95 mmol/L (98-107); Estimated Creatinine Clearance 61 ml/min; Glucose 208 mg/dl (70-99); Iron 82 ug/dl (49-181); Potassium 4.3 mmol/L (3.5-5.1); Sodium 135 mmol/L (135-145); eGFR > 60.00
[2024-01-03 10:06] LABS: Percent Saturation 26 % (20-50); Total Iron Binding Capacity 313 ug/dl (261-462)
[2024-01-03 10:12] LABS: % Basophils 0.6 % (0-2); % Eosinophils 2.4 % (0-6); % Immature Granulocytes 0.8 % (0-0.5); % Lymphocytes 19.5 % (20.5-51.1); % Monocytes 10.7 % (1.7-9.3); Absolute Eosinophils 0.1 10^3/uL (0-0.7); Absolute Monocytes 0.5 10^3/uL (0.1-0.6); Absolute Neutrophils 3.3 10^3/uL (1.4-6.5); Hematocrit 34.9 % (39.0-52.0); Hemoglobin 11.8 g/dL (13.0-18.0); Mean Corp Hgb Conc. 33.8 g/dL (33.0-37.0); Mean Corpuscular Hgb 30.9 pg (27.0-31.0); Mean Corpuscular Volume 91.4 fL (80.0-94.0); Mean Platelet Volume 11.2 fL (7.4-10.4); Nucleated Red Blood Cells % 0 % (-); Platelet Count 137 10^3/uL (130-400); Red Blood Cell Count 3.82 10^6/uL (4.70-6.10); Red Cell Dist. Width 14.5 % (11.5-14.5)
[2024-01-03 10:43] LABS: Hepatitis C Antibody Reactive (Negative)
--- NOTE | 2024-01-03 10:43 | W.PN.ONC ---
Today's Communication / Plan
-
No further inpatient hematology evaluation for thrombocytopenia
Current platelet count today in the normal range at 137K
Monitor B12 and folate not yet resulted
Hematology sign off please reach out for additional support as needed
Impression
Impression
Recent Enterococcus faecalis bacteremia. ZARIA, no vegetation on dapto
Pancytopenia, chronic -normal liver and spleen on CT of the abdomen and pelvis December 24, 2023, however abdominal ultrasound is notable for cirrhosis and probable portal hypertension with splenic diameter of 15.9 cm. Acute on chronic cytopenias may
be related to recent bacteremia and antibiotics. Platelet count has improved to baseline since last week.
Thrombocytopenia improving from last week
Mild normocytic anemia
Leukopenia, lymphopenia
aHFrEF
NSTEMI
Plan
Plan
Check DIC panel
Check B12 and folate
Check iron studies with ferritin
requested hepatitis C screen
Subjective/Objective
Subjective/Objective
Vital Signs:
Vital Signs
Temp Pulse Resp BP Pulse Ox
98.1 F 67 18 124/50 93
01/03/24 07:00 01/03/24 07:00 01/03/24 07:00 01/03/24 07:00 01/03/24 07:00
Lab Results:
Laboratory Data
WBC 5.0 10^3/uL (4.8-10.8) 01/03/24 08:56
Hgb 11.8 g/dL (13.0-18.0) L 01/03/24 08:56
Plt Count 137 10^3/uL (130-400) D 01/03/24 08:56
PT 14.7 Sec (11.4-14.6) H 01/03/24 08:56
INR 1.17 01/03/24 08:56
APTT 32.3 Sec (23.4-35.0) 01/03/24 08:56
eGFR > 60.00 01/03/24 08:56
--- NOTE | 2024-01-03 10:55 | W.PN.ID1 ---
Date of Service
Date of Service: January 03, 2024
Today's Communication
Continue daptomycin while inpatient
At time of discharge, transition to high dose amoxicillin 1g po q8h and through 01/21/24. Pt has already filled amoxicillin prescription
Follow-up with me as scheduled.
ID will sign off. Pls call prn.
Assessment / Plan
# Acute on chronic CHF/pulm edema
- For [facility] today per cardiology
# Recent Enterococcus faecalis bacteremia (12/23, 12/24)
# hx TAVR
- Unclear source. ZARIA: small PFO, no vegetation; CT a/p unremarkable
- Received 5d IV amp/ceftriaxone inpatient. Pt refused outpt IV -> dc'd on amoxicillin (took 1 dose at home prior to readmission)
- While inpatient, continue Enterococcus bacteremia treatment with Daptomycin (d9 abx) instead of ampicillin to reduce volume in setting of acute CHF.
- Again discussed with patient about abx management. He remains adamant about refusing outpt IV abx.
- At time of discharge, transition to high dose amoxicillin 1g po q8h and through 01/21/24. Pt has already filled amoxicillin presciption
Will obtain surveillance blood cultures at 1 week and 2 weeks after completion of antibiotic.
- Follow-up with me as scheduled.
# Ruled out new RML lung nodule on admission CXR - artifact
- Repeat CXR without lung nodule
ID will sign off.
#Additional Past Medical History:
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
s/p TAVR (2021)
CAD s/p stent
Ischemic cardiomyopathy
COPD
Chronic thrombocytopenia
Hypertension
Dyslipidemia
Nephrolithiasis
Andre's esophagus/stricture
Obstructive sleep apnea
Arthritis
AAA
C3-7 discectomy/laminectomy with screws
Jaw implant bilateral
B TKA
Chief Complaint
-: Other (CHF)
Subjective / Review of Systems
Feels good.
Vital Signs / Physical Exam
Vital Signs
Vital Signs
Temp Pulse Resp BP Pulse Ox
98.1 F 67 18 124/50 93
01/03/24 07:00 01/03/24 07:00 01/03/24 07:00 01/03/24 07:00 01/03/24 07:00
Physical Exam
Constitutional: No Acute Distress and Comfortable
Cardiovascular: Regular Rate and S1/S2
Pulmonary: Clear
Gastrointestinal: Soft, Non Tender and Non Distended
Neurological: AO x 3
Objective Data
Lab Data
Lab Results
01/03/24 08:56
01/03/24 08:56
PT 14.7 Sec (11.4-14.6) H 01/03/24 08:56
INR 1.17 01/03/24 08:56
APTT 32.3 Sec (23.4-35.0) 01/03/24 08:56
Estimated Creat Clear 61 ml/min 01/03/24 08:56
Total Bilirubin 0.9 mg/dl (0.2-1.3) 01/01/24 04:06
AST 59 U/L (17-59) 01/01/24 04:06
ALT 42 U/L (0-50) 01/01/24 04:06
Alkaline Phosphatase 99 U/L (38-126) 01/01/24 04:06
Most recent labs reviewed.
Micro Results:
12/31/23 09:37 Blood Culture - Preliminary
Blood/Venous No Growth in 72 hours- Final report to follow
12/31/23 09:37 Blood Culture - Preliminary
Blood/Venous No Growth in 72 hours- Final report to follow
12/31/23 CXR: Pulmonary edema with small right greater than left pleural effusions. Interval development of a 2.1 cm nodule in the right midlung which was not visualized on the chest radiograph from 12/24/2023. Given the short interval duration between
the 2 radiographs, this may be artifactual and related to a structure external to the patient, however new lung nodule is a possibility. Consider short-term repeat chest radiographs, and if still present, CT of the chest may be warranted at that
time.
[2024-01-03 11:02] LABS: Folate 11.8 ng/ml (2.76-20); Vitamin B12 > 1000 pg/ml (239-931)
[2024-01-03 11:04] LABS: Fibrinogen 331 MG/DL (199-459)
[2024-01-03] MEDS: NOVOLOG FLEXPEN-MODERATE RESISTANCE SC (12:11)
[2024-01-03 12:21] LABS: Creatine Phosphokinase 108 U/L (55-170)
[2024-01-03 12:42] LABS: ACT-LR - POC 281 Seconds (116-155)
[2024-01-03 13:56] LABS: Glucose - Point of Care 181 mg/dl (70-99)
[2024-01-03] MEDS: CUBICIN 20 MG IV (14:10)
--- NOTE | 2024-01-03 14:56 | W.PN.CARDCBS ---
Addendum entered and electronically signed by Taylor Laguerre DO 01/03/24 16:18:
I saw and examined the patient.
The Body And Fender Mechanic's note was reviewed and I agree with the note.
Comment: Patient seen and examined following cardiac catheterization. at bedside. Offers no complaints. No further chest pain. No wrist pain. No shortness of breath. Anxious to return home
GEN: No distress, awake, alert, oriented x3. sitting in chair.
HEENT: mmm
LUNGS: Decreased BS at bases
CV: Reg, S1/S2, 2/6 murmur
ABD: soft, BS+, NT/ND
EXT: no edema of B/L L. Right radial with pressure bandage post cath
Plan:
-Presented with chest discomfort/shortness of breath found to have NSTEMI and acute heart failure exacerbation now with reduced ejection fraction
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
-Peak troponin 1.28
-Left heart catheterization today with Dr. Chopra reviewed�relatively stable disease with slight progression of distal LAD stenosis prior to stent which was IFR positive. Plan for medical therapy given small territory. Could consider future
revascularization/stenting in this area if symptoms persist.
-Chronic thrombocytopenia with improved platelets; platelets were not prohibitive and recent marked thrombocytopenia likely related to enterococcal bacteremia. Appreciate hematology consult
-Continue goal-directed medical therapy
-Metoprolol was stopped in the past due to bradycardia on outpatient monitor. Continue losartan, Imdur, aspirin, Crestor, Zetia. consider addition of spironolactone following cardiac catheterization
-Consider outpatient addition of Jardiance
Recent enterococcal bacteremia on IV antibiotics
-ID service is following
-Blood cultures no growth to date since 12/26/2023
-ZARIA and TTE without evidence of endocarditis
-Unclear source, will likely need outpatient GI evaluation. CT abdomen pelvis 12/24/2023 reviewed
-Stable for discharge from a cardiovascular standpoint once he has completed radial band protocol following cardiac catheterization with radial access
-Post procedure activity restrictions and site monitoring reviewed
-Will sign off, recall if needed
Original Note:
Today's Communication / Plan
-
Cath today without intervention
Continue aggressive medical management for CAD
Transition to oral Lasix 40 mg should be discharged on this dose
Will need BMP in 5-7 days
Continue GDMT for HF, cardiomyopathy
Continue antibiotics per ID
Stable from cardiac standpoint for discharge. Outpatient follow-up has been arranged.
Impression / Plan
-
PCP: Dr. West
Cardiology: Dr. Maureen Escamilla
Impression:
Presented 12/31/2023 with chest pain/SOB
Acute HFrEF, proBNP 7870
Elevated troponin, peaked 1.28
Elevated LFTs, improving
Anemia
Possible R lung nodule by CXR 12/30/23
admission for enterococcal bacteremia 12/23-12/29/23
Cardiomyopathy, EF 40% by echo 12/24
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
mean gradient 18 mmHg by echo 04/19/23 and increased to 30 mmHg by echo 12/25/23
Worsened CM EF 45% by echo 05/23/22, EF 40% by echo 12/25/23
MODESTA
Recent outpatient treatment for suspected ureteral stone 12/18/23
Recent foot wound managed by outpatient observer electrical prospecting 08/2023
CAD s/p 2.5 mm Promus to distal LAD and 2.25 mm Promus EMERITA to mid RCA 01/07/19, patent by cath 03/16/22
DM 2
cLBBB
HTN
Chronic thrombocytopenia
COPD
Cardiac cath 01/03/2024:full report pending
Echo 05/23/22: EF 45 to 50%, moderate LVH, status post TAVR with peak/mean 30/15 mmHg
Echo 04/19/23: EF 50 to 55%, moderate concentric LVH, status post TAVR with peak/mean 33/18 mmHg
Echo 12/25/23: EF 40%, status post TAVR with peak/mean 47/30 mmHg, no aortic regurgitation seen, mild TR with PAP 35 mmHg, no definitive intracardiac mass noted
ZARIA 12/27/2023: EF 40%, global diffuse hypokinesis, status post TAVR with peak/mean gradients 31/18 mmHg, no significant AI, small PFO, no obvious vegetation appreciated
Plan:
Plan:
-Presented 12/31/2023 with chest discomfort/shortness of breath found to have NSTEMI and acute heart failure exacerbation now with reduced ejection fraction
-Patient chest pain-free and feels symptomatically improved from shortness of breath standpoint. He appears now to be euvolemic on examination.
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
-Peak troponin 1.28
-Underwent Left heart catheterization 01/03/2024 -noted to have distal LAD lesion but due to size of vessel no intervention performed; official report pending; Continue aggressive medical management;
-Hematology consulted reviewed and appreciated. Acute on chronic cytopenias may be related to recent bacteremia and antibiotics. No further inpatient hematology evaluation for thrombocytopenia with current PLT count in normal range 137,000 with
known chronic thrombocytopenia.
-Transitioned to oral Lasix 40 mg 01/03/2024. Will need increase of dose to 40 mg as outpatient
-Continue goal-directed medical therapy:
-Metoprolol was stopped in the past due to bradycardia on outpatient monitor. Continue losartan, Imdur, aspirin, Crestor, Zetia.
-consider addition of spironolactone following cardiac catheterization
-Consider outpatient addition of Jardiance (farxiga not covered by insurance however Jardiance) once infection resolved
Recent enterococcal bacteremia on IV antibiotics
-ID service is following; Per ID continue Daptomycin while inpt. At time of discharge, transition to high dose amoxicillin 1g po q8h and through 01/21/24.
-Blood cultures no growth to date since 12/26/2023
-ZARIA and TTE without evidence of endocarditis
-Unclear source, will likely need outpatient GI evaluation. CT abdomen pelvis 12/24/2023 reviewed
Stable for cardiac standpoint for discharge later today or tomorrow. Outpatient cardiology follow-up has been arranged.
Progress Note - Safety Lead
Subjective
Date of Service: January 03, 2024
Patient seen and examined post catheterization. Patient's at bedside. Patient feeling considerably better and denies chest pain and resolved shortness of breath. He reports he is eager to go home.
Objective
Labs:
01/03/24 08:56
01/03/24 08:56
Labs
Hgb 11.8 g/dL (13.0-18.0) L 01/03/24 08:56
Hct 34.9 % (39.0-52.0) L 01/03/24 08:56
Plt Count 137 10^3/uL (130-400) D 01/03/24 08:56
PT 14.7 Sec (11.4-14.6) H 01/03/24 08:56
INR 1.17 01/03/24 08:56
APTT 32.3 Sec (23.4-35.0) 01/03/24 08:56
Sodium 135 mmol/L (135-145) 01/03/24 08:56
Potassium 4.3 mmol/L (3.5-5.1) 01/03/24 08:56
BUN 19 mg/dl (9-20) 01/03/24 08:56
Creatinine 1.1 mg/dL (0.7-1.3) 01/03/24 08:56
Glucose 208 mg/dl (70-99) H 01/03/24 08:56
Troponins
01/01/24 01/01/24
11:27 17:46
Troponin I 1.280 H* 1.100 H*
Vital Signs and I&O:
Vital Signs
Temp Pulse Resp BP Pulse Ox
97.4 F 64 18 91/63 96
01/03/24 14:15 01/03/24 14:15 01/03/24 14:15 01/03/24 14:15 01/03/24 14:15
Vital Signs
Temp Pulse Resp BP Pulse Ox
97.4 F 64 18 91/63 96
01/03/24 14:15 01/03/24 14:15 01/03/24 14:15 01/03/24 14:15 01/03/24 14:15
Intake & Output
01/01/24 01/02/24 01/03/24 01/04/24
06:59 06:59 06:59 06:59
Intake Total 790 / 790 270 / 270 1840 / 1840
Output Total 3190 / 3190 300 / 300
Balance -2400 / -2400 -30 / -30 1840 / 1840
Physical Exam
Physical Exam
GEN: No distress, awake, Ox3
HEENT: supple, anicteric, mmm
LUNGS: mildly diminished BS otherwise CTA, no wheezes/rales
CV: Reg, S1/S2, 2/6 syst murmur
ABD: soft, BS+, NT/ND
EXT: Trace bilateral edema; right radial band in place without bruising or bleeding
NEURO: Gross non-focal
SKIN: No rash, warm, dry
--- NOTE | 2024-01-03 15:44 | CM ---
costing manager reviewed patient's chart and met with patient and spouse and plan is to return to home with po ABX.
Plan; Home no needs at discharge.
--- NOTE | 2024-01-03 16:22 | ITS.CL.CATH ---
[facility] - Catheterization
Cardiac Catheterization
Procedure Report:
CARDIAC CATHETERIZATION REPORT
Date of Procedure: 01/03/24
Referring: Dr. Taylor Laguerre DO
Indication: NSTEMI
PROCEDURE:
1. Right heart catheterization.
2. Left heart catheterization.
3. Coronary angiography.
4. iFR of LAD.
ACCESS:
6 [place] right radial artery.
5 [place] right antecubital vein.
CATHETERS:
1. 5 [place] balloon wedge/[place].
2. 6 [place] JL3.5.
3. 6 [place] JR4.
4. 6 [place] XB3.5.
HEMODYNAMIC DATA
AO 152/65 (mean 98)
LV 170/8 (EDP 21)
RA 9
RV 35/2 (mean 11)
PA 33/15 (mean 22)
PCWP 10
AO Sat 89.4%
SVC Sat 60.3%
CO/CI 5.2/2.5 L/min/m2
SVR 1426 dsc*-5
PVR 2.3 Wood units
CORONARY ANGIOGRAPHY
Dominance: right
Left main: large and normal
LAD: large vessel that gives rise to a large branching D1, small D2, and multiple septals before wrapping around the apex. There is a stent in the distal LAD with moderate ISR that appears stable to slightly progressed from prior catheterization.
This was further interrogated with iFR. There is a 60% stenosis in the small limb of the D1 that is stable from prior catheterization.
LCx: large vessel that gives rise to a moderate caliber OM1 and several LPL branches. There is diffuse moderate disease in OM1 that is unchanged from prior catheterization.
RCA: moderate caliber vessel that gives rise to a moderate caliber RPDA. There is mild non-obstructive disease.
iFR of LAD
The decision was made to perform physiologic testing. The diagnostic catheter was removed over a wire and exchanged for a XB 3.5 guiding catheter. The guiding catheter was advanced into the ascending aorta and seated in the LMCA. Additional heparin
was given to obtain an ACT greater than 250 seconds. An iFR wire was zeroed outside of the body, then inserted into the guiding sheath. The wire was advanced and the transducer was normalized just outside of the guiding catheter tip. The wire was
advanced into the distal LAD. Three iFR measurements were taken. The lesion was determined to be occlusion (0.77, 0.79. 0.80). iFR pullback demonstrated a focal pattern with the majority of pressure recovery occurring at the distal lesion.
Closure Device: TR band
Radiation dose (mGy): 749.29
DAP (cm2.Gy): 63.9320
Fluoroscopy time (minutes): 12.1
CONCLUSIONS / RECOMMENDATIONS:
1. Single vessel obstructive coronary artery disease in a right dominant system with iFR-positive ISR in the distal LAD. The ISR has progressed little compared to 2021 angiography, and the territory subtended by this lesion is small and unlikely to
explain a drop in EF. This will be medically managed with plan for symptom driven revascularization if necessary.
2. Hemodynamics demonstrate mildly elevated biventricular filling pressures, normal pulmonary artery pressure, and borderline normal cardiac output.
RECOMMENDATIONS:
1. Expectant management after cardiac catheterization via right approach.
2. Continued medical management of decompensated heart failure with newly reduced EF.
3. Aggressive secondary management of coronary artery disease with consideration for symptom driven revascularization of distal LAD pending response to medical therapy.
Copy to: Dr. Hossein Moran MD; Dr. Maureen Escamilla MD
Artie Avila MD, PhD
[2024-01-03 16:35] LABS: Glucose - Point of Care 228 mg/dl (70-99)
[2024-01-03] MEDS: NOVOLOG FLEXPEN-MODERATE RESISTANCE 3 UNITS SC (16:45)
[2024-01-03 21:22] LABS: Glucose - Point of Care 317 mg/dl (70-99)
[2024-01-03] MEDS: NOVOLOG FLEXPEN 5 UNITS SC (22:34)
[2024-01-04 03:15] VITALS: BP 115/56
[2024-01-04 07:15] VITALS: BP 126/46
[2024-01-04 07:25] LABS: % Basophils 0.4 % (0-2); % Eosinophils 1.5 % (0-6); % Immature Granulocytes 0.6 % (0-0.5); % Lymphocytes 15.9 % (20.5-51.1); % Monocytes 10.9 % (1.7-9.3); % Neutrophils 70.7 % (42.2-75.2); Absolute Eosinophils 0.1 10^3/uL (0-0.7); Absolute Lymphocytes 0.8 10^3/uL (1.2-3.4); Absolute Monocytes 0.6 10^3/uL (0.1-0.6); Absolute Neutrophils 3.7 10^3/uL (1.4-6.5); Hematocrit 32.1 % (39.0-52.0); Hemoglobin 10.9 g/dL (13.0-18.0); Mean Corpuscular Volume 91.2 fL (80.0-94.0); Mean Platelet Volume 11.3 fL (7.4-10.4); Nucleated Red Blood Cells % 0 % (-); Platelet Count 125 10^3/uL (130-400); Red Blood Cell Count 3.52 10^6/uL (4.70-6.10); Red Cell Dist. Width 14.4 % (11.5-14.5); White Blood Cell Count 5.2 10^3/uL (4.8-10.8)
[2024-01-04 07:37] LABS: Glucose - Point of Care 202 mg/dl (70-99)
[2024-01-04] MEDS: LASIX 40 MG PO (08:25)
[2024-01-04] MEDS: NOVOLOG FLEXPEN-MODERATE RESISTANCE 3 UNITS SC ×2 (08:25→12:22)
[2024-01-04] MEDS: ASPIR LOW (ENTERIC COATED) 81 MG PO (08:25)
[2024-01-04] MEDS: MAGNESIUM OXIDE 250 MG PO (08:26)
[2024-01-04] MEDS: ZETIA 10 MG PO (08:26)
[2024-01-04] MEDS: VITAMIN B-12 1000 MCG PO (08:26)
[2024-01-04] MEDS: IMDUR (EXTENDED RELEASE) 60 MG PO (08:26)
[2024-01-04] MEDS: COZAAR 25 MG PO (08:26)
[2024-01-04] MEDS: VITAMIN B-6 50 MG PO (08:26)
[2024-01-04] MEDS: PROTONIX 40 MG PO (08:27)
[2024-01-04 08:40] LABS: Blood Urea Nitrogen 22 mg/dl (9-20); Calcium 8.9 mg/dl (8.4-10.2); Carbon Dioxide 31 mmol/L (22-30); Chloride 98 mmol/L (98-107); Estimated Creatinine Clearance 56 ml/min; Glucose 181 mg/dl (70-99); Potassium 4.2 mmol/L (3.5-5.1); Sodium 135 mmol/L (135-145); eGFR > 60.00
--- NOTE | 2024-01-04 10:09 | W.PN.HOSP.TC ---
Today's Communication/Plan
-
Discharge planning today.
Assessment / Plan
Assessment / Plan
Physical exam:
General: Well Developed, Well Nourished and No Apparent Distress
HEENT: Normocephalic, Atraumatic and Moist Mucous Membranes
Respiratory: Clear to Auscultation; Negative Wheezes, Rales or Rhonchi
Cardiac: Regular Rhythm and S1/S2
GI: Soft, Nontender and Nondistended
Musculoskeletal: No Clubbing, No Cyanosis and No Edema
Neuro: Awake, Alert and Oriented
Psych: Calm
A/P:
Acute hypoxic respiratory failure:
Likely due to heart failure
diuretics
Titrated oxygen off to room air
Repeated chest x-ray today with improvement of heart failure and no lung nodule
PT OT eval
Discussed with cardiology prior
On oral diuretics per cardiology and continue current anti-ischemic regimen
On oral antibiotic same as before per ID
Discussed with at bedside
Plan to discharge today
Acute on chronic systolic congestive heart failure:
On oral diuretics, Lasix 40 mg daily.
On IV nitro but discontinue and monitor-restarted long-acting nitrates
On BiPAP but discontinue and placed on oxygen and titrate as able to wean
Cardiology consult appreciated
BNP upon admission 7870
Monitor strict I/O
Monitor daily weight
Monitor renal function and electrolytes
Reviewed latest echocardiogram on our system
Continue guideline-directed medical therapy for heart failure (GDMT)
Fluid restriction
Salt restriction
Heart failure education
Follow up clinical response
Elevated troponin and chest pain with non-STEMI:
Cardiology took him to cardiac catheterization yesterday on 01/02 and recommended continue medical management.
Cardiology has cleared him for discharge.
Consideration for cardiac catheterization per cardiology. Cardiology requests hematology evaluation in the setting of pancytopenia and probable antiplatelet use.
Possible cardiac cath tomorrow
Hematology consulted
Trended troponin
Cardiac monitoring
Recent sepsis due to enterococcal bacteremia:
Continue IV daptomycin per ID
Repeat blood cultures no growth during this hospital stay
Follow-up infectious parameters
ID noticed probably change back to oral antibiotics upon discharge
Aortic stenosis status post TAVR:
Cardiology eval
CAD:
Continue anti-ischemic regimen
s/p 2.5 mm Promus to distal LAD and 2.25 mm Promus EMERITA to mid RCA 01/07/19, patent by cath 03/16/22
Hypertension:
Continue home antihypertensives.
Monitor blood pressure and adjust medications accordingly.
COPD:
No evidence of exacerbation
Hold off on systemic steroids
Diabetes mellitus type 2:
Diabetic diet
check blood sugars before meals and at bedtime
add insulin sliding scale
monitor blood sugar and adjust medications accordingly
Pancytopenia:
Chronic pancytopenia but today much improved
Monitor cell count
Hematology eval appreciated
DVT prophylaxis:
SCDs
No pharmacological prophylaxis due to thrombocytopenia
CODE STATUS:
DNR
Anticipated Discharge: Today
Subjective/Interval History
-
Date of Service: January 04, 2024
Patient denies any chest pain or shortness of breath. Afebrile
Objective Data
-
Labs:
Laboratory Results
01/04/24
06:18
WBC 5.2
Hgb 10.9 L
Hct 32.1 L
Plt Count 125 L
Sodium 135
Potassium 4.2
Chloride 98
Carbon Dioxide 31 H
BUN 22 H
Creatinine 1.2
Glucose 181 H
Calcium 8.9
Vital Signs:
Vital Signs
Temp Pulse Resp BP Pulse Ox
98.4 F 73 18 126/46 94
01/04/24 07:15 01/04/24 08:26 01/04/24 07:15 01/04/24 08:26 01/04/24 07:15
I&O
01/03/24 01/04/24 01/05/24
06:59 06:59 06:59
Intake Total 1840 / 1840 720 / 720
Balance 1840 / 1840 720 / 720
[2024-01-04 11:28] VITALS: BP 107/49
[2024-01-04 12:18] LABS: Glucose - Point of Care 225 mg/dl (70-99)
[2024-01-04] MEDS: CUBICIN 20 MG IV (12:26)
--- NOTE | 2024-01-04 14:24 | W.DCSUMMARY ---
Discharge Summary
Discharge Data
Date of Admission: 12/31/23
Date of Discharge: 01/04/24
-
Pending Results: No
Hospital Course
Patient 83 years old male with history of CAD, COPD, chronic left bundle branch block, recently admitted for enterococcal bacteremia with sepsis and came back with worsening chest pain and shortness of breath found to have a Non-STEMI and CHF
exacerbation this time. Patient was treated with IV aggressive diuresis and anti-ischemic regimen. Cardiology consulted. He underwent cardiac catheterization on 01/02 and for his obstructive CAD was recommended aggressive management of coronary
artery disease and they will consider symptom driven revascularization of distal LAD pending response to medical therapy. Patient had negative balance throughout his hospital stay and was able to be switched to oral diuretics upon discharge.
Cardiac regimen as listed on his discharge medications and he will continue to be reevaluated as outpatient by cardiology. Patient was seen by ID who switched his antibiotics to IV daptomycin during this hospital stay. Upon reevaluation ID
recommended to go back to his oral antibiotics and he will continue to follow-up as outpatient. Blood cultures taken during this hospital stay remained sterile. Patient was seen by hematology due to his pancytopenia prior to his cardiac
catheterization and hematology felt there was no need for further inpatient hematology evaluation and they were okay with antiplatelet or anticoagulation as needed. Hematology felt etiology was multifactorial with recent sepsis and possible liver
cirrhosis and portal hypertension. Otherwise, patient is hemodynamically stable, afebrile and feels back to his normal. Cardiology has cleared him for discharge. ID has cleared him for discharge. He will be discharged in stable condition today.
Discharge duration: 37 minutes
Discharge Plan
-
Patient Disposition: Home with Home Care
Discharge Diagnosis/Procedures: NSTEMI status post cardiac catheterization. Acute systolic congestive heart failure. Recent enterococcal bacteremia.
Diet: Low Cholesterol, 2 Gram Sodium and Restrict fluids to 48 oz
Activity: Other activity
Additional Activity: As instructed by cardiology.
Blood Work: Please PCP to order CBC, BMP, magnesium within 1 week.
Specialty Instructions: Weigh Daily- Call MD for wt gain/loss 3 lbs overnight/5 lbs in 1 week
Instructions: *DCA Heart Failure Instructions
Stand Alone Forms: DC Instructions- Cath/EP Lab
Referrals:
Leslie Mena CRNP [Specified Professional Personl] - 01/10/24 2:00 pm (You have a cardiology follow up appointment at the [facility] office with Dr. Reddy's nurse practitioner, Leslie. Please call with questions. )
Marquis West MD [Family Provider] - in less than 1 week
Rachna Gaona MD [Active] - in two to three weeks
Prescriptions:
New
furosemide 40 mg Tablet
40 mg PO DAILY 30 Days Qty: 30 0RF
Continued
garlic 400 mg Tablet,Delayed Release (Dr/Ec)
400 mg PO DAILY
cyanocobalamin (vitamin B-12) 1,000 mcg Tablet
1,000 mcg PO DAILY
therapeutic multivitamin Tablet
1 tab PO DAILY
isosorbide mononitrate 60 mg Tablet Extended Release 24 Hr
60 mg PO DAILY
potassium 99 mg Tablet
99 mg PO DAILY
ascorbic acid (vitamin C) [Vitamin C] 500 mg Tablet
1,000 mg PO DAILY
pantoprazole [Protonix] 40 mg Tablet,Delayed Release (Dr/Ec)
40 mg PO DAILY
losartan 25 mg Tablet
25 mg PO DAILY
pyridoxine (vitamin B6) 50 mg Tablet
50 mg PO DAILY
furosemide [Lasix] 20 mg Tablet
20 mg PO MOWEFR
glipizide 5 mg Tablet
5 mg PO DAILY
ezetimibe [Zetia] 10 mg Tablet
10 mg PO DAILY
rosuvastatin 5 mg Tablet
5 mg PO MOWEFR
Trulicity 0.75 mg/0.5 mL Pen Injector
0.75 mg SC FR
magnesium oxide 200 mg magnesium Tablet
200 mg PO DAILY
aspirin 81 mg Capsule
81 mg PO DAILY
amoxicillin 500 mg Capsule
1,000 mg PO Q8H
oxycodone-acetaminophen 10-325 mg Tablet
1 tab PO Q6HPRN PRN (Reason: severe pains)
Discharge Orders:
Discharge Patient (As Directed); Ordered 01/04/24
Ordered By: Obed Foreman
Discharge Date and Time
Discharge Date/Time: 01/04/24 15:16
Print Language: MONGOLIAN
--- NOTE | 2024-01-04 14:35 | CM ---
IMM completed.
Plan Home no needs.
== END 2024-01-04 15:16 | disposition home or self-care (01) | DRG 280 ==
LOC: 4 WEST ACU 09:23
PROVIDERS: Emergency Medicine; Internal Medicine; Nurse Practitioner Acute Care; Physician Assistant; Student in an Organized Health Care Education/Training Program; ADMITTING PHYSICIAN Hospitalist; CONSULT PHYSICIAN Internal Medicine Infectious Disease; CONSULT PHYSICIAN Nuclear Medicine Nuclear Cardiology; EMERGENCY PHYSICIAN Emergency Medicine; FAMILY PHYSICIAN Family Medicine
PROC: 5A09357 Assistance with Respiratory Ventilation, Less than 24 Consecutive Hours, Continuous Positive Airway Pressure (ICD-10-PCS; 2023-12-31)
PROC: 4A023N8 Measurement of Cardiac Sampling and Pressure, Bilateral, Percutaneous Approach (ICD-10-PCS; 2024-01-03)
PROC: B2111ZZ Fluoroscopy of Multiple Coronary Arteries using Low Osmolar Contrast (ICD-10-PCS; 2024-01-03)
PROC: 4A033BC Measurement of Arterial Pressure, Coronary, Percutaneous Approach (ICD-10-PCS; 2024-01-03)
DX: I21.4 Non-ST elevation (NSTEMI) myocardial infarction (principal); I50.23 Acute on chronic systolic (congestive) heart failure; J96.01 Acute respiratory failure with hypoxia; D61.818 Other pancytopenia; K76.6 Portal hypertension; K86.1 Other chronic pancreatitis; N17.9 Acute kidney failure, unspecified; Q21.12 Patent foramen ovale; I11.0 Hypertensive heart disease with heart failure; Z66 Do not resuscitate; E11.319 Type 2 diabetes mellitus with unspecified diabetic retinopathy without macular edema; E11.42 Type 2 diabetes mellitus with diabetic polyneuropathy; Z95.2 Presence of prosthetic heart valve; I35.0 Nonrheumatic aortic (valve) stenosis; I71.40 Abdominal aortic aneurysm, without rupture, unspecified; J44.9 Chronic obstructive pulmonary disease, unspecified; K74.60 Unspecified cirrhosis of liver; I44.7 Left bundle-branch block, unspecified; I25.5 Ischemic cardiomyopathy; I25.10 Atherosclerotic heart disease of native coronary artery without angina pectoris; E78.00 Pure hypercholesterolemia, unspecified; G47.33 Obstructive sleep apnea (adult) (pediatric); K21.9 Gastro-esophageal reflux disease without esophagitis; Z96.653 Presence of artificial knee joint, bilateral; Z79.82 Long term (current) use of aspirin; Z79.899 Other long term (current) drug therapy; Z87.442 Personal history of urinary calculi; Z86.19 Personal history of other infectious and parasitic diseases; Z87.19 Personal history of other diseases of the digestive system; Z79.84 Long term (current) use of oral hypoglycemic drugs; Z87.891 Personal history of nicotine dependence; Z95.5 Presence of coronary angioplasty implant and graft; Z88.8 Allergy status to other drugs, medicaments and biological substances
CPT/HCPCS: 71045; 71046; 80048; 80053; 82248; 82550; 82553; 82607; 82728; 82746; 82962; 83540; 83550; 83735; 83880; 84484; 85025; 85027; 85347; 85379; 85384; 85610; 85730; 86803; 87040; 93005; 93460; 93571; 94660; 96374; 96375; 97116; 97162; 97166; 99291; C1769; C1887; C1894; J0878; Q9967

== ENCOUNTER 2024-01-15 13:56 | Inpatient (IN) | payer MEDICARE, BC, SELFPAY ==
[2024-01-15] VITALS (27 sets, daily range): BP systolic 81–137; BP diastolic 36–63; PULSE 67–73; BMI 28.9
--- NOTE | 2024-01-15 10:41 | ED.GENMED ---
History of Present Illness
General
Chief Complaint: Heart Rate Problem
Source: patient
Exam Limitations: none
Time Seen by Provider: 01/15/24 10:14
Nursing documentation reviewed up to this point in time: agreed with
History of Present Illness
History of Present Illness:
Patient with history of COPD, discharged from the hospital 10 days ago after being treated for congestive heart failure on Lasix, presents to ED secondary to hypotension and bradycardia, noted by infectious diseases physician during routine
outpatient follow-up evaluation. Patient does report that he was feeling lightheaded as he was driving to the office. When he checked his pulse this morning, it was noted to be in the 40s. 2 days ago, patient states that his heart rate was 24 but
gradually improved during the day. Patient has felt lightheaded when his heart rate is low. Denies previous history of similar symptoms. Patient has been losing approxi-1 pound of per day since being discharged home. Denies fever or chills.
Denies chest pain. Denies shortness of breath. Denies back pain. Denies headache. Patient has been restricting himself to 48 ounces water per day, but sometimes less. Of note, patient does have left lower leg erythema, which patient states is
chronic.
Past History
Past History
ED Past Medical History: COPD, NIDDM and Other (Esophageal stricture, ND, aortic stenosis, peripheral neuropathy)
Social History
Tobacco: Former smoker
Alcohol: None
Drug: None
Personal:
Living: with family
Family History
Family History: Negative Diabetes or Hypertension
Review of Systems
Review of Systems
Allergies reviewed?: Yes
All Other Systems: ROS reviewed and negative except as documented in HPI and ROS
Constitutional: Reports no symptoms
EENT: Reports no symptoms
Respiratory: Reports no symptoms
Cardiac: Reports no symptoms
ABD/GI: Reports no symptoms
Musculoskeletal: Reports edema
Skin: Reports no symptoms
Neurological: Reports dizzy
Phy Exam
Physical Exam
Physical Exam:
Physical Exam
General: no apparent distress, not acutely ill. afebrile. hypotensive/bradycardic
Head: nc/at. eomi
Neck: supple. no meningeal signs.
Heart: bradycardic, no murmur. equal radial pulses.
Lungs: no acute respiratory distress. clear bilaterally
Abdomen: normal bowel sounds. not tender.
Neuro: alert and oriented. no focal neurological deficits
Skin: no rash
Psychiatric: well kept. interactive and cooperative
Extremities: LLE edema with mild erythema below midcalf. no calf tenderness.
Course
Orders/Labs/Results
Orders:
Orders
01/15/24 Breakfast
2000 calorie (17 carb) Diabetic
At Your Request: Full Participation
01/15/24 10:02
Electrocardiogram (*1) Urgent
Reason for Study: Bradycardia / Tachycardia
EKG- Treatment ONCE
01/15/24 10:16
Complete Blood Count/With Diff Urgent
Comprehensive Metabolic Panel Urgent
Magnesium Urgent
Comment: ADD
Pro-BNP [NT-proBNP] Urgent
Prothrombin Time Urgent
Troponin I Urgent
01/15/24 10:17
TSH Reflex To Free T4 Urgent
Comment: ADD
01/15/24 10:31
Add On- LAB Urgent
Tests Added?: magnesium, TSH to reflex Free T4
01/15/24 10:41
0.9% Sodium Chloride 250 ml [Nss] 250 ml IV BOLUS
01/15/24 13:19
Admit/Transfer Patient As Directed
Co-Sign Provider:
Level of Care: Inpatient admission
Assign to:: IMU- Intermediate Care
Physician / Group: wei
Diagnosis: hypotension
Reason for Hospitalization: hypotension
Expected length of stay greater than two midnights?: Yes
ELOS- Estimated Length of Stay in days: 3
I certify the patient meets the requirements for IP care: Yes
01/15/24 13:20
PRN Pain Medication Management As Directed
May give lesser potent ordered pain med per pt: Yes
preference::
Protocol:: Medication orders for pain may be administered in a
manner that supports deferring to patient preference
when the pt is:
- Requesting an ordered lesser potent pain medication.
Least to most potent pain medications are defined
as: acetaminophen < NSAID < tramadol < opioids
(morphine, oxycodone, hydromorphone).
- Requesting a lesser dose of the same medication IF
ORDERED.
- Requesting a less intrusive route of administration
if both routes are prescribed by the provider (PO <
IV).
01/15/24 13:21
Code Status As Directed
Resuscitation Status: Do not resuscitate
Reached after discussion with pt or family/Healthcare POA: Yes
DNR Bracelet Application ONCE
01/15/24 15:36
0.9% Sodium Chloride 1000 ml [Nss] 1,000 ml IV 80 mls/hr
Acetaminophen [Tylenol] 650 mg PO Q4HPRN PRN
Bisacodyl [Dulcolax] 10 mg RECTAL [id number] PRN
Dextrose 50%-Water [Dextrose 50% Syringe] 12.5 grams IV [id number] PRN
Docusate W/Senna [Senokot-S] 1 tablet PO BIDPRN PRN
Glucagon [GlucaGen] 1 mg IM PRN PRN
Polyethylene Glycol Powder [Miralax] 17 grams PO DAILYPRN PRN
01/15/24 15:36
Activity As Directed
Activity Level: As Tolerated
Bedside Glucose Monitoring As Directed
Frequency: AC&HS
Additional Instructions:: Change to q6h if pt on TPN, tube feeding or not eating
Intake/ Output As Directed
Frequency: Per unit guidelines
Pneumatic Compression Sleeves As Directed
Type: Knee high
Vital Signs As Directed
Frequency: Per unit guidelines
DX Deep Vein Thrombosis Video Routine
01/15/24 16:00
Amoxicillin [Amoxil] 1,000 mg PO Q8
01/15/24 16:17
Troponin I Q6H
01/15/24 16:30
Insulin Aspart Corrective Low [Novolog Flexpen-Low Resistance] See Protocol SC AC
01/16/24 04:00
Troponin I Q6H
01/16/24 06:00
Basic Metabolic Panel IN AM
Complete Blood Count/No Diff IN AM
Glycohemoglobin (HgbA1c) IN AM
Physical Therapy Consult [Pt Eval And Treat] IN AM
Activity Level: As Tolerated
01/16/24 08:00
Aspirin Chewable [Low Strength Aspirin] 81 mg PO DAILY
Ezetimibe [Zetia] 10 mg PO DAILY
GlipiZIDE [Glucotrol] 5 mg PO DAILY
Pantoprazole [Protonix] 40 mg PO DAILY
01/17/24 06:00
Basic Metabolic Panel IN AM
Complete Blood Count/No Diff IN AM
01/17/24 08:00
Rosuvastatin Calcium [Crestor] 5 mg PO [id number]@0800
01/18/24 06:00
Basic Metabolic Panel IN AM
Complete Blood Count/No Diff IN AM
01/19/24 06:00
Basic Metabolic Panel IN AM
Complete Blood Count/No Diff IN AM
01/20/24 06:00
Basic Metabolic Panel IN AM
Complete Blood Count/No Diff IN AM
Abnormal Lab Results
01/15/24
10:16
RBC 3.82 L 10^6/uL
(4.70-6.10)
Hgb 12.1 L g/dL
(13.0-18.0)
Hct 35.4 L %
(39.0-52.0)
MCH 31.7 H pg
(27.0-31.0)
RDW 14.6 H %
(11.5-14.5)
Plt Count 101 L 10^3/uL
(130-400)
MPV 12.1 H fL
(7.4-10.4)
Absolute Monos (auto) 1.1 H 10^3/uL
(0.1-0.6)
Immature Gran % 0.6 H %
(0-0.5)
Lymphocytes % 18.9 L %
(20.5-51.1)
Monocytes % 16.3 H %
(1.7-9.3)
PT 15.8 H Sec
(11.4-14.6)
Chloride 97 L mmol/L
(98-107)
BUN 44 H mg/dl
(9-20)
Creatinine 2.7 H mg/dL
(0.7-1.3)
Glucose 159 H mg/dl
(70-99)
Total Bilirubin 1.5 H mg/dl
(0.2-1.3)
Troponin I 0.201 H* ng/ml
01/15/24 10:16
01/15/24 10:16
Vital Signs
Initial and Last Documented VS:
Initial Vital Signs
Temp Pulse Resp BP Pulse Ox
99.0 F 44 22 85/44 93
01/15/24 09:59 01/15/24 09:59 01/15/24 09:59 01/15/24 09:59 01/15/24 09:59
Last Documented Vital Signs
Temp Pulse Resp BP Pulse Ox
98.3 F 71 20 123/42 97
01/15/24 19:35 01/15/24 19:00 01/15/24 19:00 01/15/24 18:01 01/15/24 20:54
MDM/Problems Addressed
MDM/Problems Addressed:
Patient's heart rate remains greater than 70 bpm in ED,. However, patient becoming more hypotensive during observation, possibly secondary to overdiuresis. As such, patient will be given 250 mL of normal saline bolus and reassess.
Patient's blood pressure remained stable after initial IV fluid bolus. However, blood work is concerning for acute renal failure, likely secondary to overdiuresis. As such, patient will be admitted for further evaluation and treatment.
*Critical Care Note
Total Time (30-74mins, 75-104mins- exclusive of procedures): Not Applicable
ED Attending Note
-
Portions of this chart may have been created with voice recognition software.� Occasional wrong word or��sound alike� substitutions may have occurred due to the inherent limitations of voice recognition software.
Discharge Plan
Departure
Patient Disposition: Admit
Date of Disposition: 01/15/24
Time of Disposition: 11:55
Admit to: Telemetry
Presentation/result/management discussed w/ accepting MD/DO: Hospitalist
Discharge Problem:
Bradycardia, Acute renal failure (ARF)
Interventions
Interventions:
*Risk Screen - Suicide Last Done: 01/15/24 10:14
*General Assessment Last Done: 01/15/24 10:14
*Neglect/Abuse Screening Last Done: 01/15/24 10:14
ED- Fall Risk Assessment Last Done: 01/15/24 15:28
*ED COVID-19 Vaccine History Last Done: 01/15/24 10:14
*Nursing Disposition Last Done: 01/15/24 15:28
ED- Cardiac Assessment Last Done: 01/15/24 10:15
ED- Pulmonary Assessment Last Done: 01/15/24 10:15
Discharge Date and Time
Discharge Date/Time: 01/15/24 15:30
[2024-01-15 11:01] LABS: % Basophils 0.4 % (0-2); % Eosinophils 0.3 % (0-6); % Immature Granulocytes 0.6 % (0-0.5); % Lymphocytes 18.9 % (20.5-51.1); % Monocytes 16.3 % (1.7-9.3); % Neutrophils 63.5 % (42.2-75.2); Absolute Lymphocytes 1.3 10^3/uL (1.2-3.4); Absolute Monocytes 1.1 10^3/uL (0.1-0.6); Absolute Neutrophils 4.4 10^3/uL (1.4-6.5); Hematocrit 35.4 % (39.0-52.0); Hemoglobin 12.1 g/dL (13.0-18.0); Mean Corp Hgb Conc. 34.2 g/dL (33.0-37.0); Mean Corpuscular Hgb 31.7 pg (27.0-31.0); Mean Corpuscular Volume 92.7 fL (80.0-94.0); Mean Platelet Volume 12.1 fL (7.4-10.4); Nucleated Red Blood Cells % 0 % (-); Platelet Count 101 10^3/uL (130-400); Red Blood Cell Count 3.82 10^6/uL (4.70-6.10); Red Cell Dist. Width 14.6 % (11.5-14.5); White Blood Cell Count 6.9 10^3/uL (4.8-10.8)
[2024-01-15 11:04] LABS: INR 1.26; PT 15.8 Sec (11.4-14.6)
[2024-01-15] MEDS: NSS 250 IV (11:06)
[2024-01-15 11:10] LABS: ALT (SGPT) 26 U/L (0-50); AST (SGOT) 50 U/L (17-59); Alkaline Phosphatase 93 U/L (38-126); Blood Urea Nitrogen 44 mg/dl (9-20); Calcium 9.2 mg/dl (8.4-10.2); Carbon Dioxide 25 mmol/L (22-30); Chloride 97 mmol/L (98-107); Glucose 159 mg/dl (70-99); Potassium 4.3 mmol/L (3.5-5.1); Sodium 135 mmol/L (135-145); Total Bilirubin 1.5 mg/dl (0.2-1.3); Total Protein 7.2 g/dl (6.3-8.2); eGFR 22.96
[2024-01-15 11:19] LABS: NT-proBNP 7820 pg/ml; Troponin I 0.201 ng/ml
[2024-01-15 11:39] LABS: TSH Reflex To Free T4 2.41 uIU/ml (0.47-4.68)
--- NOTE | 2024-01-15 12:51 | HPS.HSE ---
Family Physician
-
Family Physician: Marquis West
Chief Complaint
-
low BP and low HR
History of Present Illness
83-year-old with past medical history for COPD, diabetes, esophageal stricture, NV, aortic stenosis, peripheral neuropathy presented to us with hypertension and bradycardia. Patient stated his heart rate was in 40s today and in 20s days ago.
Patient has been having intermittent lightheadedness. Patient denied any syncopal episode. Patient denied any headache, fever, chills, chest pain. Patient has chronic short of breath. Denied weight gain. Stated he has been losing 1 pound every
day. Denied abdominal pain, nausea, vomiting, diarrhea denied dysuria hematuria. Patient has chronic left lower extremities erythema.
Patient had a follow-up appoint with infectious disease today. He was noted hypotensive.
On arrival patient is hypotensive. Received 250 cc normal saline in ER. Admitting for further management.
Medical History
Past Medical History
Past Medical History: Reports Other
Additional Past Medical History:
Hypertension
Hyperlipidemia
Coronary artery disease
Abdominal aortic aneurysm
Type 2 diabetes
Arthriti thrombocytopenia
Diabetic neuropathy
Carpal tunnel syndrome
COPD s
Past Surgical History: Reports Other
Additional Past Surgical History:
Discectomy
Laminectomy
Neuroma removal from bilateral feet
Bilateral implants and jaw
Tonsillectomy
Cataract extraction
Dental implant
Carpal tunnel release
total knee replacemen right knee replacement
Extra fragments explanted
Cardiac stents
Aortic valve replacement
Social History
Tobacco: Former Smoker
Alcohol: None
Drug: None
Family History
Family History: Not pertinent
Allergies / Home Medications
Allergies reflects when Allergies were last updated in [facility].
Home Medications with original date entered in [facility]
Allergy/Medication List:
Allergies
Allergy/AdvReac Type Severity Reaction Status Date / Time
atorvastatin Allergy LEG CRAMPS Verified 12/31/23 05:54
lisinopril Allergy severe Verified 12/31/23 05:54
cough
prednisone Allergy Swelling Verified 12/31/23 05:54
rosiglitazone [From Avandia] Allergy Edema Verified 12/31/23 05:54
Home Medications
ascorbic acid (vitamin C) 500 mg tablet (Vitamin C) 1,000 mg PO DAILY Supplement 12/24/23
cyanocobalamin (vitamin B-12) 1,000 mcg tablet 1,000 mcg PO DAILY Supplement 12/24/23
dulaglutide 0.75 mg/0.5 mL subcutaneous pen injector (Trulicity) 0.75 mg SC FR Diabetes 12/24/23
ezetimibe 10 mg tablet (Zetia) 10 mg PO DAILY High Cholesterol 12/24/23
furosemide 20 mg tablet (Lasix) 60 mg PO MOWEFR Fluid Retention/Swelling 12/24/23
garlic 400 mg tablet,delayed release 400 mg PO DAILY Supplement 12/24/23
glipizide 5 mg tablet 5 mg PO DAILY Diabetes 12/24/23
isosorbide mononitrate 60 mg tablet,extended release 24 hr 60 mg PO DAILY Heart Disease/Condition 12/24/23
losartan 25 mg tablet 25 mg PO DAILY Blood Pressure 12/24/23
magnesium oxide 200 mg PO DAILY Supplement 12/24/23
pantoprazole 40 mg tablet,delayed release (Protonix) 40 mg PO DAILY GERD 12/24/23
potassium 99 mg tablet 99 mg PO DAILY Supplement 12/24/23
pyridoxine (vitamin B6) 50 mg tablet 50 mg PO DAILY Supplement 12/24/23
rosuvastatin 5 mg tablet 5 mg PO MOWEFR High Cholesterol 12/24/23
therapeutic multivitamin 1 tab PO DAILY Supplement 12/24/23
amoxicillin 500 mg capsule 1,000 mg PO Q8H bacteremia 12/31/23
aspirin 81 mg capsule 81 mg PO DAILY Blood Pressure 12/31/23
furosemide 40 mg tablet 40 mg PO SUTUTHSA Fluid Retention/Swelling 01/15/24
ibuprofen 125 mg-acetaminophen 250 mg tablet (Advil Dual Action) 1 tab PO Q8HPRN PRN mild pain 01/15/24
Review of Systems
-
Constitutional: Reports No Symptoms
EENT: Reports No Symptoms
Respiratory: Reports No Symptoms
Cardiac: Reports No Symptoms
Abdomen/GI: Reports No Symptoms
: Reports No Symptoms
Musculoskeletal: Reports No Symptoms
Skin: Reports No Symptoms
Neurological: Reports Other (Lightheaded)
Endocrine: Reports No Symptoms
Hematologic/Lymphatic: Reports No Symptoms
Psych: Reports No Symptoms
Physical Exam
Vital Signs
Vital Signs
Temp Pulse Resp BP Pulse Ox
99.0 F 68 17 99/40 94
01/15/24 09:59 01/15/24 11:45 01/15/24 11:45 01/15/24 11:45 01/15/24 11:45
Physical Exam
General: Well Developed, Well Nourished and No Apparent Distress
HEENT: NormoCephalic, Moist mucous membranes and Atraumatic
Respiratory: Clear
Cardiac: S1/S2 and Regular Rhythm; No Murmur or Rub
GI: Soft, Non Tender, Non Distended and Normal Bowel Sounds; No Organomegaly
Rectal: Deferred by Provider
Musculoskeletal: No Clubbing, No Cyanosis and No Edema
Skin: Rash and Other (Left lower extremities erythema)
Neuro: AO x 3 and Nonfocal/grossly intact
Psych: Calm
Laboratory Results
-
01/15/24 10:16
01/15/24 10:16
Laboratory Results
PT 15.8 Sec (11.4-14.6) H 01/15/24 10:16
INR 1.26 01/15/24 10:16
Total Bilirubin 1.5 mg/dl (0.2-1.3) H 01/15/24 10:16
AST 50 U/L (17-59) 01/15/24 10:16
ALT 26 U/L (0-50) 01/15/24 10:16
Alkaline Phosphatase 93 U/L (38-126) 01/15/24 10:16
Troponin I 0.201 ng/ml H* 01/15/24 10:16
Data Reviewed
-
Lab Data: Labs Reviewed by me
Impression/Plan
-
#symptomatic hypotension likely from overdiuresis
# History of hypertension
-Received normal saline 250 cc in ER
-Blood pressure still on the low side
-Imdur, losartan held
-normal saline 80cc/hr continued
#acute renal failure likely from overdiuresis
-Creatinine 2.7, BUN 44
-Received normal saline in ER
-normal saline continued
# Chronic thrombocytopenia
-Platelets 101
-Continue to monitor
# Elevated Tropin with non-STEMI
-Trop 0.201
-Continue to trend Trope
-No complaints of chest pain
-EKG with impression of normal sinus rhythm
-Continue to trend Trop
# GERD
-Protonix continued
# History of CHF
-BNP 7820
-Recent ZARIA with impression of Normal LV size with mildly reduced systolic function.
LVEF is approximately 40%.
-Hold Lasix
# History for enterococcal bacteremia
-Amoxicillin continued
#Aortic stenosis status post TAVR:
#CAD:
-s/p 2.5 mm Promus to distal LAD and 2.25 mm Promus EMERITA to mid RCA 01/07/19, patent by cath 03/16/22
-Aspirin continued
# Hyperlipidemia
-Zetia continued
-Rosuvastatin continued
#COPD:
-No evidence of exacerbation
#Diabetes mellitus type 2:
-Diabetic diet
-check blood sugars before meals and at bedtime
-add insulin sliding scale
-monitor blood sugar and adjust medications accordingly
-Glipizide continued
-Hold Trulicity
#DVT prophylaxis:
SCDs
No pharmacological prophylaxis due to thrombocytopenia
#CODE STATUS:
DNR
[2024-01-15] MEDS: NSS 1000 IV (16:19)
[2024-01-15] MEDS: AMOXIL 1000 MG PO ×2 (16:19→23:46)
--- NOTE | 2024-01-15 16:44 | PTCARENOTE ---
Received patient into room 3344. Pt steady on feet, walked from stretcher to bed then to bathroom and back. He is aaox3, pleasant. He reports no pain or SOB. Lungs diminished. On monitor, he is in SR with frequent PVCs. BP stable. Orthostatics done
and documented. at the bedside and updated. Pt given call morse and can ring appropriately. Assessment, care and VS as charted.
[2024-01-15 16:54] LABS: Glucose - Point of Care 136 mg/dl (70-99)
[2024-01-15 16:57] LABS: Troponin I 0.146 ng/ml
[2024-01-15 21:57] LABS: Glucose - Point of Care 136 mg/dl (70-99)
[2024-01-16] VITALS (10 sets, daily range): BP systolic 109–169; BP diastolic 36–62; PULSE 70–80; BMI 30.5
[2024-01-16] MEDS: NSS 1000 IV (03:48)
[2024-01-16 04:16] LABS: Blood Urea Nitrogen 37 mg/dl (9-20); Calcium 8.8 mg/dl (8.4-10.2); Carbon Dioxide 25 mmol/L (22-30); Chloride 103 mmol/L (98-107); Estimated Creatinine Clearance 43 ml/min; Glucose 115 mg/dl (70-99); Potassium 3.9 mmol/L (3.5-5.1); Sodium 137 mmol/L (135-145); eGFR 50.49
--- NOTE | 2024-01-16 04:58 | PTCARENOTE ---
No acute events overnight. No episodes of bradycardia. IVF infusing.
[2024-01-16 05:49] LABS: Hematocrit 32.2 % (39.0-52.0); Hemoglobin 11.2 g/dL (13.0-18.0); Mean Corp Hgb Conc. 34.8 g/dL (33.0-37.0); Mean Corpuscular Volume 89.2 fL (80.0-94.0); Mean Platelet Volume 11.8 fL (7.4-10.4); Platelet Count 80 10^3/uL (130-400); Red Blood Cell Count 3.61 10^6/uL (4.70-6.10); Red Cell Dist. Width 14.4 % (11.5-14.5); White Blood Cell Count 4.7 10^3/uL (4.8-10.8)
[2024-01-16] MEDS: AMOXIL 1000 MG PO (08:32)
[2024-01-16] MEDS: LOW STRENGTH ASPIRIN 81 MG PO (08:32)
[2024-01-16] MEDS: GLUCOTROL 5 MG PO (08:32)
[2024-01-16] MEDS: PROTONIX 40 MG PO (08:32)
[2024-01-16] MEDS: ZETIA 10 MG PO (08:32)
[2024-01-16 08:52] LABS: Glucose - Point of Care 184 mg/dl (70-99)
--- NOTE | 2024-01-16 10:40 | W.PN.HOSP.TC ---
Today's Communication/Plan
-
Discharge
Resume Lasix at 20 mg tomorrow
BMP in 3-5 days
Assessment / Plan
Assessment / Plan
#Prerenal MODESTA
#Symptomatic hypotension
#H/O chronic hypertension
-Suspect overdiuresis following recent hospitalization for heart failure
-To me today that his previous regimen was Lasix 20 mg 3 times a week
-Was discharged on higher dose, hypovolemic on arrival with elevated creatinine
-Symptoms and labs improved with holding Lasix, light IV fluids
-States he feels well today, blood pressure stable off of Imdur and losartan
-Plan to DC on Lasix 20 mg daily with BMP in 3 days after discharge
-Hold Imdur and losartan until follow-up with PCP and outsole flexer
#HFmrEF
-Recent echocardiogram showed LVEF 40%, was recently hospitalized with decompensated CHF
-GDMT includes ARB; Lasix for diuresis; both medications currently held
-Suspect that he was over diuresed following discharge recently, hypovolemic on arrival
-Holding Lasix as above and receiving light IVF, symptoms and labs have improved
-Plan to DC on low-dose Lasix daily, 20 mg with BMP as outpatient
#Chronic thrombocytopenia
-Unclear etiology, baseline somewhere near 100
-No signs of bleeding, labs stable while here
#CAD s/p EMERITA to LAD and RCA
#Nonischemic myocardial infarction
-Likely related to hypovolemia and increased cardiac demand
-No chest pain or EKG changes, troponin trend flat and not consistent with ACS
-Remains on home Crestor, Zetia, aspirin
#GERD
-Home medications include daily PPI, no known history of Andre's or erosive disease
-No red flag symptoms today
#H/O enterococcal bacteremia
-Patient states the source of this infection was unclear, had positive blood cultures
-Was advised to complete 21-day course of amoxicillin, last day 01/21/2024
#COPD
-No signs of exacerbation, remains on home inhaler regimen
#T2DM
-No recent A1c, no known history of microvascular disease
-Home medications include Trulicity, glipizide
-Home regimen was transition to SSI with Accu-Cheks here
#Aortic stenosis s/p TAVR
DVT prophylaxis: SCDs
Diet: Regular
CODE STATUS: DNR
Anticipated Discharge: Today
Subjective/Interval History
-
Date of Service: January 16, 2024
Seen and examined at bedside. No acute events overnight.
He states he feels great today, wants to know if he able to leave the hospital.
He denies chest pain, shortness of breath, lightheadedness, fevers or chills, nausea, vomiting, urinary issues, abnormal bleeding or bruising, paresthesias or weakness
Objective Data
-
Labs:
Laboratory Results
01/16/24
03:45
WBC 4.7 L
Hgb 11.2 L
Hct 32.2 L
Plt Count 80 L D
Sodium 137
Potassium 3.9
Chloride 103
Carbon Dioxide 25
BUN 37 H
Creatinine 1.4 H
Glucose 115 H
Calcium 8.8
Vital Signs:
Vital Signs
Temp Pulse Resp BP Pulse Ox
98.5 F 57 18 142/59 97
01/16/24 07:43 01/16/24 10:00 01/16/24 10:00 01/16/24 10:00 01/16/24 07:43
I&O
01/15/24 01/16/24 01/17/24
06:59 06:59 06:59
Intake Total 1400 / 1400
Output Total 900 / 900
Balance 500 / 500
Review of Systems
-
History Source: Patient
All other systems: Reviewed and negative
Physical Exam
-
General: Well Nourished, No Apparent Distress and Comfortable
HEENT: Normocephalic, Atraumatic, Moist Mucous Membranes and Anicteric
Respiratory: Clear to Auscultation and Non Labored Respirations; Negative Wheezes, Rales or Rhonchi
Cardiac: Regular Rhythm, S1/S2 and Murmur; Negative Rub, JVD or Gallop
GI: Soft, Nontender, Nondistended and Normal Bowel Sounds
Musculoskeletal: No Clubbing, No Cyanosis and No Edema
Skin: Warm and Dry; Negative Rash or Ulcers
Neuro: AO x 3, Nonfocal/Grossly Intact and Central Nerve's Intact
Data Reviewed
-
Labs: Labs Reviewed by me and Discussed with Patient
--- NOTE | 2024-01-16 10:51 | W.DCSUMMARY ---
Discharge Summary
Discharge Data
Date of Admission: 01/15/24
Date of Discharge: 01/16/24
-
Pending Results: No
Hospital Course
83-year-old male with heart failure minimally reduced EF 40%, CAD s/p PCI x 2, s/p TAVR, COPD, T2DM with neuropathy, history of esophageal stricture that presented to the hospital with symptomatic hypotension in the context of overdiuresis and
antihypertensive regimen. Had MODESTA which responded to IV fluids. Symptomatically improved with discontinuation of his Lasix, losartan, Imdur. He received light IV fluids in the context of his heart failure. Upon discharge was advised to hold
losartan and Imdur until he sees PCP or [employer]. Advised him to resume Lasix daily and 20 mg, lower than 40mg 3x/wk and 60 mg 4x/wk regimen he was on upon admission. Provided him a prescription for BMP in 3 to 5 days after discharge.
Advised him to monitor his weight daily and discontinue Lasix if >2 pound weight loss in a day, call PCP or cardiology if weight gain >2 pound in a day.
Discharge Plan
-
Patient Disposition: Home (Routine Discharge)
Discharge Diagnosis/Procedures: Symptomatic hypotension
Acute kidney injury
Condition: Good
Diet: Low Sodium
Activity: As tolerated
Driving Restrictions: No driving for 24 hours
Bathing Restrictions: None
Blood Work: BMP in 3-5 days to recheck kidney function
Specialty Instructions: Weigh Daily- Call MD for wt gain/loss 3 lbs overnight/5 lbs in 1 week
Activity Restrictions/Additional Instructions:
Measure your weight daily on new Lasix dose. If your weight decreases >1 pound in a days time then stop Lasix and call cardiology or family doctor
Instructions: Dealing with Low Blood Pressure from the Drugs You Take
Referrals:
Marquis West MD [Family Provider] -
Additional Discharge Medication Instructions: Stop taking losartan and Imdur (isosorbide mononitrate) until you see your family doctor or [employer]
Reduce Lasix dose to 20 mg daily and monitor weight every morning
Prescriptions:
New
furosemide [Lasix] 20 mg tablet
20 mg PO DAILY 30 Days Qty: 30 0RF
Continued
garlic 400 mg Tablet,Delayed Release (Dr/Ec)
400 mg PO DAILY
cyanocobalamin (vitamin B-12) 1,000 mcg Tablet
1,000 mcg PO DAILY
therapeutic multivitamin Tablet
1 tab PO DAILY
ascorbic acid (vitamin C) [Vitamin C] 500 mg Tablet
1,000 mg PO DAILY
pantoprazole [Protonix] 40 mg Tablet,Delayed Release (Dr/Ec)
40 mg PO DAILY
pyridoxine (vitamin B6) 50 mg Tablet
50 mg PO DAILY
glipizide 5 mg Tablet
5 mg PO DAILY
ezetimibe [Zetia] 10 mg Tablet
10 mg PO DAILY
rosuvastatin 5 mg Tablet
5 mg PO MOWEFR
Trulicity 0.75 mg/0.5 mL Pen Injector
0.75 mg SC FR
magnesium oxide 200 mg magnesium Tablet
200 mg PO DAILY
aspirin 81 mg Capsule
81 mg PO DAILY
amoxicillin 500 mg Capsule
1,000 mg PO Q8H
Held
isosorbide mononitrate 60 mg Tablet Extended Release 24 Hr
60 mg PO DAILY
Hold Instructions: Do not take until you see your family doctor or [employer]
losartan 25 mg Tablet
25 mg PO DAILY
Hold Instructions: Do not take until you see your primary care doctor or [employer]
Discontinued
potassium 99 mg Tablet
99 mg PO DAILY
furosemide [Lasix] 20 mg Tablet
60 mg PO MOWEFR
furosemide 40 mg tablet
40 mg PO SUTUTHSA
ibuprofen-acetaminophen [Advil Dual Action] 125-250 mg Tablet
1 tab PO Q8HPRN PRN (Reason: mild pain)
Discharge Orders:
Discharge Patient (As Directed); Ordered 01/16/24
Ordered By: Terrance Bonilla
Discharge Date and Time
Print Language: BULGARIAN
--- NOTE | 2024-01-16 11:12 | CM ---
Addendum entered by Raquel Macdonald RN 01/16/24 17:03:
PT Eval noted- no d/c needs.
Original Note:
Patient with Dx Prerenal MODESTA, Symptomatic hypotension, HF. Room air. Receiving IVF. PT Eval pending.
Met with patient who resides with his in a 2 story house with 1 DAVID.
The patient has been independent in ADLs and ambulation until the night prior to admission, when he became SOB.
He is usually active and goes to a fitness center 3x/week.
DME - nebulizer, SPC, RW, shower chair, raised toilet seat.
Has BP cuff, heart rate monitor, oximetry device, scale and uses these daily due to HF.
No prior VN or SNF.
PCP - Marquis West
Pharmacy - [facility]
Patient declined offer for VN.
/
The patient says he feels ready for d/c today. IMM in chart from 01/14 reviewed. His will provide transport home today.
Plan check PT Eval.
Plan home today.
== END 2024-01-16 15:02 | disposition home or self-care (01) | DRG 683 ==
LOC: IMU 13:56
PROVIDERS: Registered Nurse; ADMITTING PHYSICIAN Internal Medicine; EMERGENCY PHYSICIAN Emergency Medicine; FAMILY PHYSICIAN Family Medicine
DX: N17.9 Acute kidney failure, unspecified (principal); I50.22 Chronic systolic (congestive) heart failure; I5A Non-ischemic myocardial injury (non-traumatic); Z87.891 Personal history of nicotine dependence; D69.6 Thrombocytopenia, unspecified; K21.9 Gastro-esophageal reflux disease without esophagitis; J44.9 Chronic obstructive pulmonary disease, unspecified; E11.42 Type 2 diabetes mellitus with diabetic polyneuropathy; Z66 Do not resuscitate
CPT/HCPCS: 80048; 80053; 82962; 83735; 83880; 84443; 84484; 85025; 85027; 85610; 93005; 97116; 97162; 99285

== ENCOUNTER → 2024-01-21 09:11 | Outpatient (REF) | payer MEDICARE, BC, SELFPAY ==
[2024-01-21 11:10] LABS: Blood Urea Nitrogen 32 mg/dl (9-20); Calcium 9.8 mg/dl (8.4-10.2); Carbon Dioxide 28 mmol/L (22-30); Chloride 102 mmol/L (98-107); Glucose 181 mg/dl (70-99); Potassium 4.8 mmol/L (3.5-5.1); Sodium 141 mmol/L (135-145); eGFR 55.19
== END ==
LOC: REG 09:11
PROVIDERS: ATTENDING PHYSICIAN Internal Medicine; FAMILY PHYSICIAN Family Medicine
DX: N17.9 Acute kidney failure, unspecified (principal)
CPT/HCPCS: 36415; 80048

== ENCOUNTER → 2024-01-30 10:04 | Outpatient (REF) | payer MEDICARE, BC, SELFPAY | LOC: RCS 10:04 | PROVIDERS: ATTENDING PHYSICIAN Nurse Practitioner; FAMILY PHYSICIAN Nurse Practitioner Family | DX: I10 Essential (primary) hypertension (principal); I25.5 Ischemic cardiomyopathy; I50.21 Acute systolic (congestive) heart failure | CPT/HCPCS: 93306 ==

== ENCOUNTER → 2024-02-04 07:25 | Outpatient (REF) | payer MEDICARE, BC, SELFPAY ==
[2024-02-04 08:11] LABS: % Basophils 0.5 % (0-2); % Eosinophils 5.1 % (0-6); % Immature Granulocytes 0.2 % (0-0.5); % Lymphocytes 27.1 % (20.5-51.1); % Monocytes 11.2 % (1.7-9.3); % Neutrophils 55.9 % (42.2-75.2); Absolute Eosinophils 0.2 10^3/uL (0-0.7); Absolute Lymphocytes 1.1 10^3/uL (1.2-3.4); Absolute Monocytes 0.5 10^3/uL (0.1-0.6); Absolute Neutrophils 2.3 10^3/uL (1.4-6.5); Hematocrit 38.3 % (39.0-52.0); Hemoglobin 12.9 g/dL (13.0-18.0); Mean Corp Hgb Conc. 33.7 g/dL (33.0-37.0); Mean Corpuscular Hgb 30.5 pg (27.0-31.0); Mean Corpuscular Volume 90.5 fL (80.0-94.0); Mean Platelet Volume 11.4 fL (7.4-10.4); Nucleated Red Blood Cells % 0 % (-); Platelet Count 101 10^3/uL (130-400); Red Blood Cell Count 4.23 10^6/uL (4.70-6.10); Red Cell Dist. Width 13.7 % (11.5-14.5); White Blood Cell Count 4.1 10^3/uL (4.8-10.8)
[2024-02-04 08:49] LABS: Blood Urea Nitrogen 29 mg/dl (9-20); Carbon Dioxide 28 mmol/L (22-30); Chloride 102 mmol/L (98-107); Glucose 78 mg/dl (70-99); Potassium 4.2 mmol/L (3.5-5.1); Sodium 143 mmol/L (135-145); eGFR > 60.00
[2024-02-04 09:54] LABS: Glycohemoglobin (HgbA1c) 6.2 % (4.0-5.6)
== END ==
LOC: REG 07:25
PROVIDERS: ATTENDING PHYSICIAN Internal Medicine Infectious Disease; FAMILY PHYSICIAN Family Medicine
DX: J44.1 Chronic obstructive pulmonary disease with (acute) exacerbation (principal); I25.84 Coronary atherosclerosis due to calcified coronary lesion; I10 Essential (primary) hypertension; E11.69 Type 2 diabetes mellitus with other specified complication; I25.5 Ischemic cardiomyopathy; R78.81 Bacteremia; B95.2 Enterococcus as the cause of diseases classified elsewhere
CPT/HCPCS: 36415; 80048; 83036; 85025; 87040

== ENCOUNTER → 2024-02-17 10:31 | Outpatient (REF) | payer MEDICARE, BC, SELFPAY | LOC: REG 10:31 | PROVIDERS: ATTENDING PHYSICIAN Internal Medicine Infectious Disease; FAMILY PHYSICIAN Family Medicine | DX: R78.81 Bacteremia (principal); B95.2 Enterococcus as the cause of diseases classified elsewhere | CPT/HCPCS: 36415; 87040 ==

== ENCOUNTER → 2024-03-02 07:32 | Outpatient (REF) | payer MEDICARE, BC, SELFPAY ==
[2024-03-02 09:05] LABS: ALT (SGPT) 46 U/L (0-50); AST (SGOT) 63 U/L (17-59); Albumin 4.2 g/dl (3.5-5.0); Alkaline Phosphatase 113 U/L (38-126); Blood Urea Nitrogen 29 mg/dl (9-20); Calcium 9.7 mg/dl (8.4-10.2); Carbon Dioxide 24 mmol/L (22-30); Chloride 108 mmol/L (98-107); Glucose 151 mg/dl (70-99); HDL Cholesterol 42 mg/dl; LDL Cholesterol, Calculated 60 mg/dl; Potassium 4.5 mmol/L (3.5-5.1); Sodium 143 mmol/L (135-145); Total Bilirubin 0.5 mg/dl (0.2-1.3); Total Cholesterol 121 mg/dl (50-199); Total Protein 7.1 g/dl (6.3-8.2); Triglyceride 99 mg/dl (10-149); Very Low Density Lipoprotein 19 mg/dl (0-30); eGFR > 60.00
[2024-03-02 09:14] LABS: Microalbumin, Random Urine 3.7 mg/dl (0.6-1.7); Microalbumin/creatinine Ratio 28.9 mg/g
== END ==
LOC: REG 07:32
PROVIDERS: ATTENDING PHYSICIAN Internal Medicine Endocrinology, Diabetes & Metabolism; FAMILY PHYSICIAN Family Medicine
DX: E11.40 Type 2 diabetes mellitus with diabetic neuropathy, unspecified (principal)
CPT/HCPCS: 36415; 80053; 80061; 82043; 82570; 83036

== ENCOUNTER → 2024-09-01 09:54 | Outpatient (REF) | payer MEDICARE, BC, SELFPAY ==
[2024-09-01 11:13] LABS: Microalbumin, Random Urine 11.9 mg/dl (0.6-1.7); Microalbumin/creatinine Ratio 89.6 mg/g
[2024-09-01 11:32] LABS: Glycohemoglobin (HgbA1c) 7.1 % (4.0-5.6)
[2024-09-01 11:45] LABS: ALT (SGPT) 52 U/L (0-50); AST (SGOT) 60 U/L (17-59); Albumin 4.5 g/dl (3.5-5.0); Alkaline Phosphatase 105 U/L (38-126); Blood Urea Nitrogen 17 mg/dl (9-20); Calcium 9.5 mg/dl (8.4-10.2); Carbon Dioxide 27 mmol/L (22-30); Chloride 106 mmol/L (98-107); Glucose 130 mg/dl (70-99); HDL Cholesterol 42 mg/dl; LDL Cholesterol, Calculated 92 mg/dl; Potassium 4.6 mmol/L (3.5-5.1); Sodium 142 mmol/L (135-145); Total Cholesterol 172 mg/dl (50-199); Total Protein 7.7 g/dl (6.3-8.2); Triglyceride 193 mg/dl (10-149); Very Low Density Lipoprotein 38 mg/dl (0-30); eGFR > 60.00
== END ==
LOC: REG 09:54
PROVIDERS: ATTENDING PHYSICIAN Internal Medicine Endocrinology, Diabetes & Metabolism
DX: E11.40 Type 2 diabetes mellitus with diabetic neuropathy, unspecified (principal)
CPT/HCPCS: 36415; 80053; 80061; 82043; 82570; 83036

== ENCOUNTER → 2024-09-16 11:28 | Outpatient (REF) | payer MEDICARE, BC, SELFPAY | LOC: RAD 11:28 | PROVIDERS: ATTENDING PHYSICIAN Internal Medicine Critical Care Medicine; FAMILY PHYSICIAN Family Medicine | DX: J44.9 Chronic obstructive pulmonary disease, unspecified (principal) | CPT/HCPCS: 71046 ==

== ENCOUNTER → 2024-10-08 10:04 | Outpatient (REF) | payer MEDICARE, BC, SELFPAY ==
[2024-10-08 10:59] LABS: % Basophils 0.8 % (0-2); % Eosinophils 6.4 % (0-6); % Immature Granulocytes 0.8 % (0-0.5); % Lymphocytes 17.7 % (20.5-51.1); % Monocytes 14.4 % (1.7-9.3); % Neutrophils 59.9 % (42.2-75.2); Absolute Eosinophils 0.3 10^3/uL (0-0.7); Absolute Lymphocytes 0.7 10^3/uL (1.2-3.4); Absolute Monocytes 0.6 10^3/uL (0.1-0.6); Absolute Neutrophils 2.3 10^3/uL (1.4-6.5); Hematocrit 39.5 % (39.0-52.0); Hemoglobin 13.3 g/dL (13.0-18.0); Mean Corp Hgb Conc. 33.7 g/dL (33.0-37.0); Mean Corpuscular Hgb 30.9 pg (27.0-31.0); Mean Corpuscular Volume 91.9 fL (80.0-94.0); Mean Platelet Volume 11.4 fL (7.4-10.4); Nucleated Red Blood Cells % 0 % (-); Platelet Count 96 10^3/uL (130-400); Red Cell Dist. Width 13.3 % (11.5-14.5); White Blood Cell Count 3.9 10^3/uL (4.8-10.8)
[2024-10-08 11:32] LABS: ALT (SGPT) 31 U/L (0-50); AST (SGOT) 48 U/L (17-59); Albumin 4.3 g/dl (3.5-5.0); Alkaline Phosphatase 88 U/L (38-126); Blood Urea Nitrogen 23 mg/dl (9-20); Calcium 9.6 mg/dl (8.4-10.2); Carbon Dioxide 29 mmol/L (22-30); Chloride 110 mmol/L (98-107); Glucose 77 mg/dl (70-99); HDL Cholesterol 43 mg/dl; LDL Cholesterol, Calculated 95 mg/dl; Potassium 4.3 mmol/L (3.5-5.1); Sodium 145 mmol/L (135-145); Total Bilirubin 0.9 mg/dl (0.2-1.3); Total Cholesterol 154 mg/dl (50-199); Total Protein 7.6 g/dl (6.3-8.2); Triglyceride 82 mg/dl (10-149); Very Low Density Lipoprotein 16 mg/dl (0-30); eGFR > 60.00
[2024-10-08 11:51] LABS: Glycohemoglobin (HgbA1c) 6.3 % (4.0-5.6)
== END ==
LOC: REG 10:04
PROVIDERS: ATTENDING PHYSICIAN Family Medicine
DX: J44.9 Chronic obstructive pulmonary disease, unspecified (principal); I25.84 Coronary atherosclerosis due to calcified coronary lesion; E11.69 Type 2 diabetes mellitus with other specified complication
CPT/HCPCS: 36415; 80053; 80061; 83036; 85025

== ENCOUNTER → 2025-02-09 07:01 | Outpatient (REF) | payer MEDICARE, BC, SELFPAY | LOC: RAD 07:01 | PROVIDERS: ATTENDING PHYSICIAN Internal Medicine Cardiovascular Disease; FAMILY PHYSICIAN Family Medicine | DX: I10 Essential (primary) hypertension (principal); I50.22 Chronic systolic (congestive) heart failure; I44.7 Left bundle-branch block, unspecified; I73.9 Peripheral vascular disease, unspecified; I77.819 Aortic ectasia, unspecified site | CPT/HCPCS: 93306; 93922; 93925; 93978; Q9950 ==

== ENCOUNTER → 2025-03-09 07:46 | Outpatient (REF) | payer MEDICARE, BC, SELFPAY ==
[2025-03-09 09:19] LABS: Microalb - Urine Creatinine 45.300 mg/dl
[2025-03-09 09:23] LABS: Microalbumin, Random Urine 1.0 mg/dl (0.6-1.7)
[2025-03-09 09:27] LABS: Glycohemoglobin (HgbA1c) 6.2 % (4.0-5.6)
[2025-03-09 09:32] LABS: ALT (SGPT) 40 U/L (0-50); AST (SGOT) 45 U/L (17-59); Albumin 4.5 g/dl (3.5-5.0); Alkaline Phosphatase 82 U/L (38-126); Blood Urea Nitrogen 25 mg/dl (9-20); Calcium 9.6 mg/dl (8.4-10.2); Carbon Dioxide 31 mmol/L (22-30); Chloride 105 mmol/L (98-107); Glucose 110 mg/dl (70-99); HDL Cholesterol 49 mg/dl; LDL Cholesterol, Calculated 61 mg/dl; Potassium 4.4 mmol/L (3.5-5.1); Sodium 143 mmol/L (135-145); Total Protein 7.8 g/dl (6.3-8.2); Very Low Density Lipoprotein 26 mg/dl (0-30); eGFR > 60.00
== END ==
LOC: REG 07:46
PROVIDERS: ATTENDING PHYSICIAN Internal Medicine Endocrinology, Diabetes & Metabolism; FAMILY PHYSICIAN Family Medicine
DX: E11.40 Type 2 diabetes mellitus with diabetic neuropathy, unspecified (principal)
CPT/HCPCS: 36415; 80053; 80061; 82043; 82570; 83036